=== PATIENT | female | born 2000 | race Caucasian/White ===

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

== ENCOUNTER 2019-04-23 17:52 | Emergency (ER) | payer OTHER ==
[~2019-04-23] VITALS: Ht 162.6 cm; Wt 93.1 kg
[~2019-04-23 17:52] MED LIST changes: +ADMELOG100 UNIT/1 SUB-Q; +CIPROFLOXACIN500 MG PO; +HYDROXYZINE HCL25 MG PO; +IMODIUM A-D2 M2 PO; -NOVOLOG100 UNIT/2 SUB-Q; +OMEPRAZOLE20 MG PO; +TOPAMAX50 MG PO; +ZANTAC150 MG PO
--- OUTSIDE RECORDS SUMMARY | 2019-04-23 17:56 | XMS ---
PreManage Notification: FAUSTINO JIMENEZ Security Meat Products Demonstrator Events No recent Security Events currently on file CRITERIA MET - [facility] CARE PROVIDERS Bayron Nurse Charge Rn/Cloth Opener Hand [facility] PHONE: [phone] FATOU [facility] 01/26/2019-[facility] PRIMARY CARE PHONE: [phone] NICKO YANCEY Nurse Practitioner: Women's Health 03/31/2018-Current PHONE: [phone] YAW SAMANIEGO Internal Medicine: Endocrinology, Diabetes 05/13/2018-Current \T\ Metabolism PHONE: [phone] [facility] Primary Care 01/26/2019-[facility] PRIMARY CARE FATOU PHONE: [phone] RIA NEFF Primary Care Current PHONE: Unknown NICKO YANCEY Primary Care Current PHONE: [phone] RIA NEFF Primary Care Current PHONE: Unknown [facility] Primary Care 09/26/2017-Current [facility] PHONE: [phone] [facility] Primary Care Current PHONE: Unknown RIA NEFF Primary Care Current PHONE: Unknown [address]UBNA [address] Primary Care Current PHONE: Unknown ELIZABETH DURAND Primary Care [facility] PHONE: Unknown Family Dental Care Case or Silk Spreader Current [facility] PHONE: [phone] SUE MARTINEZ Primary Care 11/20/2016-Current PHONE: [phone] Guidelines Source: [facility] Guidelines Date: 05/13/2018 Care Coordination: PATIENT LIVES AT [place] [employer] [facility].\T\nbsp; THEY HAVE STANDING ORDERS FOR TREATMENT OF HER DIABETES THROUGH HER SENIOR UI SOFTWARE ENGINEER DR YAW SAMANIEGO MD, [facility] [phone] .\T\nbsp; SEE ATTACHED COPY OF STANDING ORDERS. Additional care guidelines exist for the following facilities: [place] [address] ( 03/02/2019 ) Care History Social 11/29/2016 [place] [address] Client has Family Care Cloth Opener Hand Elisha Ward [phone]. Behavioral 11/29/2016 [place] [address] Client attends [phone] [employer] therapist Prisca Paris [phone] [email or web address] Medical/Surgical 07/29/2018 [facility] PATIENT HAS STANDING ORDERS AT [employer] [facility] FROM SENIOR UI SOFTWARE ENGINEER (SEE ATTACHMENTS) YAW SAMANIEGO (PHONE/[phone])(FAX/) .\T\nbsp; STANDING ORDERS FOR BLOOD SUGAR CHECKS, TREATMENT OF HYPGLYCEMIA AND HYPERGLYCEMIA INCLUDING URINE DIP FOR KETONES. TREATMENT FOR BLOOD SUGARS LESS THAN 80MG/DL AND FOR BLOOD SUGARS OVER 500MG/DL INCLUDED IN TREATMENT. 04/22/2018 [facility] - PATIENT RESCHEDULED APT FOR ED FOLLOW UP WITH PCP NICKO YANCEY ON 04/18/18 NEXT PCP APT IS ON 04/29/18 FOR ED FOLLOW UP. - PLEASE REFER PATIENT TO PCP FOR FOLLOW UP CARE FOR ANY NON EMERGENT MEDICAL NEEDS. 03/03/2018 [facility] - CHW contacted patient discussed ED utilization and the amount of ED visits that will start case management more involvement. - Patient stated she understood and will be utilizing her PCP going forward. - Patient stated she will make an apt with her PCP on 03/04/18. E.D. VISIT COUNT (12 MO.) 7 [facility]. TOTAL 7 NOTE: Visits indicate total known visits. ED/UCC VISIT TRACKING (12 MO.) 04/23/2019 17:53 [facility] [place] TYPE: Emergency COMPLAINT: - ABDOMINAL PAIN/VOMITING 03/23/2019 17:20 [facility] [place] TYPE: Emergency COMPLAINT: - DIABETIC ISSUE, BLOOD SUGAR PROBLEM 03/22/2019 15:15 [facility] GormanAlexys Amaro [place] TYPE: Emergency COMPLAINT: - POSS BLOOD SUGAR ISSUES DIAGNOSES: - Anxiety disorder, unspecified - Upper abdominal pain, unspecified - Type 1 diabetes mellitus with ketoacidosis without coma - Other jail (current) drug therapy 11/06/2018 18:58 [facility] [place] TYPE: Emergency COMPLAINT: - R ABD PAIN/CONSTIPATION DIAGNOSES: - Anxiety disorder, unspecified - Epigastric pain - Other jail (current) drug therapy - Peptic ulcer, site unspecified, unspecified as acute or chronic, without hemorrhage or perforation - lobsterman (current) use of oral hypoglycemic drugs - Type 1 diabetes mellitus without complications 10/21/2018 14:14 [facility] [place] TYPE: Emergency COMPLAINT: - R FLANK PAIN,NON INJURY DIAGNOSES: - Anxiety disorder, unspecified - Gastritis, unspecified, without bleeding - Type 1 diabetes mellitus without complications - [facility] (current) use of insulin - Unspecified abdominal pain - Other jail (current) drug therapy 07/03/2018 21:35 [facility] [place] TYPE: Emergency COMPLAINT: - DIABETIC, LOW BLOOD SUGAR DIAGNOSES: - Type 1 diabetes mellitus with hypoglycemia without coma - Anxiety disorder, unspecified - Urinary tract infection, site not specified - Other terminal press operator (current) drug therapy - lobsterman (current) use of insulin 05/13/2018 22:36 [facility] [place] TYPE: Emergency COMPLAINT: - BLOOD SUGAR PROBLEM DIAGNOSES: - Other terminal press operator (current) drug therapy - Other specified postprocedural states - Type 1 diabetes mellitus with hyperglycemia INPATIENT VISIT TRACKING (12 MO.) 03/23/2019 21:[address] [facility] [place] TYPE: Critical Care COMPLAINT: - DIABETIC ISSUE, BLOOD SUGAR PROBLEM DIAGNOSES: - Sepsis, unspecified organism - Radiographic dye allergy status - Other terminal press operator (current) drug therapy - Type 1 diabetes mellitus with ketoacidosis without coma - Acute pyelonephritis - Unspecified mood [affective] disorder - Acute respiratory failure with hypoxia - Sepsis due to Escherichia coli [E. coli] - Resistance to multiple antimicrobial drugs - lobsterman (current) use of insulin - Gastro-esophageal reflux disease without esophagitis [email or web address]
[2019-04-23] MEDS ORDERED: ZOFRAN4 MG PO (22:28)
== END 2019-04-23 22:48 | disposition home or self-care (01) ==
LOC: ED 17:52
DX: K52.9 Noninfective gastroenteritis and colitis, unspecified (principal); E10.9 Type 1 diabetes mellitus without complications; F41.9 Anxiety disorder, unspecified; Z91.041 Radiographic dye allergy status; Z79.899 Other long term (current) drug therapy
CPT/HCPCS: 74176; 80053; 81001; 82010; 82803; 84703; 85025; 96361; 96374; 96375; 99284-25; J1170; J2405; J7030

== ENCOUNTER 2019-06-01 14:56 | Observation (INO) | payer OTHER ==
[~2019-06-01] VITALS: Ht 162.6 cm; Wt 92.1 kg
--- OUTSIDE RECORDS SUMMARY | ~2019-06-01 | XMS | Clinical Summary ---
Demographics + + + | Address | [address] | | | [place] [address] | + + + | Home Phone | | + + + | Preferred Language | Unknown | + + + | Marital Status | Single | + + + | Tenriism Affiliation | Unknown | + + + | Race | Unknown | + + + | Ethnic Group | Unknown | + + + Author + + + | Author | [facility] | | | and Paulana | + + + | Organization | [facility] | | | and Paulana [...] Team Providers + +------+ + | Care Check Totaler Name | Role | Phone | + +------+ + | Lyudmila Child SPOT WELDER BODY ASSEMBLY | PCP | | + +------+ + [...] 02/23 | | Activ | | (HUMALOG KWJOHNPEN) | under the skin 3 | | [...] + + + | Overview: Problem List Planetarium Technician | + + + + + | Major depressive disorder | 08/20/2018 | + + + | Hyperglycemia | 08/12/2018 | + + + | MDD (major depressive disorder), recurrent severe, 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 | | + + + | Hyponatremia | 03/08/2014 | + + + | Sinusitis | 03/08/2014 | + + + Encounters +--------+---------+ + + + | Date | Type | Specialty | Care Team | Description | +--------+---------+ + + + | 04/28/ | Office | Gastroenterology | Jalil Jane | Diarrhea, | | 2019 | Visit | | MD Cosmo | unspecified type | | | | | | (Primary Dx); | | | | | | Gastroesophageal | | | | | | reflux disease, | | | | | | esophagitis presence | | | | | | not specified | +--------+---------+ + + + from Last 3 Months Family History + + +------+ + | [...] + +---------+ + | Alcohol Use | Drinks/We | oz/Week | Comments | | | ek | | | + + +---------+ + | Never [...] Filed Vital Signs + + + + | Vital Sign | Reading | Time Taken | + + + + | Blood Pressure | 104/76 | 04/28/20191445 PDT | + + + + | Pulse | 98 | 04/28/20191445 PDT | + + + + | Temperature | 36.8 C (98.3 F) | 04/28/20191445 PDT | + + + + | Respiratory Rate | 12 | 04/28/20191445 PDT | + + + + | Oxygen Saturation | 98% | 04/28/20191445 PDT | + + + + | Inhaled Oxygen | - | - | | Concentration | | | + + + + | Weight | 87.7 kg (193 lb 5.5 | 04/28/20191445 PDT | | | oz) | | + + + + | Height | 167.6 cm (5' 6") | 04/28/20191445 PDT | + + + + | Body Mass Index | 31.21 | 04/28/20191445 PDT | + + + + Plan of Treatment + + + + + | Health Maintenance | Due Date | Last Done | Comments | + + + + + | Well Child Check | | | | | | 3 | | | + + + + + | Vaccine: HPV (1 - | | | | | Female 3-dose | 5 | | | | series) | | [...] | | | | Pneumococcal 19-64 | 9 | | | | (PPSV23 only) Medium | | | | | Risk (1 of - | | | | | PPSV23) | | | | + + + + + | Microalbumin | | | | | Screening | 9 | | | + + + + + | Vaccine: Influenza | | 06/23/2018, 06/23/2018, | | | (#1) | 9 | 07/09/2017, Additional history | | | [...] | [employer] | MODA | [id number] | 04/28/20 | [phone] | | Medica | | MEDICAID HMO [...] Self | [birth year] | [address] | [address] | marcelo/Doc | | 2001 | [phone] | [place] [address] | | | leilani | | | 8 (Home) | | + +--------+ +--------+ + + Advance Directives Patient has advance care planning documents on file. For more information, please contact:Allyssa [facility] [place] [address]
--- OUTSIDE RECORDS SUMMARY | ~2019-06-01 | XMS | Encounter Summary ---
Demographics + + + | Address | [address] | | | [place] [address] | + + + | Home Phone | | + + + | Preferred Language | Unknown | + + + | Marital Status | Single | + + + | Judaism Affiliation | Unknown | + + + | Race | Unknown | + + + | Ethnic Group | Unknown | + + + Author + + + | Author | [facility] | | | and Paulana | + + + | Organization | [facility] | | | and Paulana [...] Providers + +------+ + | Care Supervisor [place] Name | Role | Phone | + [...] | | Gastro-esoph | [address] | MASH TUB COOKER OPERATOR [address] | | | | | ageal reflux | [address] | [place], [place] | | | | | disease | [place], | [address] [place] | | | | | without | [place] [address] | FLORENTIN ROMAN | | | | | esophagitis | Phone: | [phone] Phone: | | | | | Diarrhea, | [phone] | [phone] | | | | | unspecified | Fax: | Fax: | | | | | Nausea | [phone] | [phone] | | | | | Right upper | | | | | | | quadrant | | | | | | | pain | | | | | | | Procedures | | | | | | | REFRACTORY WORKER OFFICE | | | | | | | VISIT | | | +--------+--------+ + + + + Encounter Details +--------+---------+ + + + | Date | Type | Department | Care Team | Description | +--------+---------+ + + + | 04/28/ | Office | [facility] | Jalil Jane | Diarrhea, | | 2019 | Visit | GASTROENTEROLOGY | MD Cosmo [address] | unspecified type | | | | [address] [place] | [address] [place] | (Primary Dx); | | | | [address] [place], [place] | [place] [address] | Gastroesophageal | | | | [address] | [phone] | reflux disease, | | | | [phone] | | esophagitis presence | | | [...] history: She is no longer in the [facility], and is living with her boyfriend. Diarrhea [...] fail to improve. CC: Lyudmila Child, RENA[place] [address] [place] [address] Portions of this chart may have been created with [employer] voice recognition software. Occasi onal wrong-word or [...]
--- OUTSIDE RECORDS SUMMARY | ~2019-06-01 | XMS | Clinical Summary ---
Demographics + + + | Address | [address] | | | [place] [address] | + + + | Home Phone | | + + + | Preferred Language | Unknown | + + + | Marital Status | Single | + + + | Protestant Affiliation | Unknown | + + + | Race | Unknown | + + + | Ethnic Group | Unknown | + + + Author + + + | Author | [facility] | | | and Paulana | + + + | Organization | [facility] | [...] Team Providers + +------+ + | Care Assembler Aircraft Power Plant Name | Role | Phone | + +------+ + | Lyudmila Child MICROPHONE OPERATOR | PCP | | + +------+ [...] + + + | Overview: Problem List Washing Machine Loader | + + + + + | [...] | [employer]AN | MODA | [id number] | 04/28/20 | [phone] | | Medica | | MEDICAID HMO [...] Flor | marcelo/Doc | | 2001 | [phone] | [place] [address] | | | leilani | | | 8 (Home) | | + +--------+ +--------+ + + Advance Directives Patient has advance care planning documents on file. For more information, please contact:Allyssa [facility] and [facility] [place] [address]
--- OUTSIDE RECORDS SUMMARY | ~2019-06-01 | XMS | Encounter Summary ---
Demographics + + + | Address | [address] | | | [place] [address] | + + + | Home Phone [...] | Author | [facility] | | | and Paulana | + + + | Organization | [facility] | | | and Paulana [...] Team Providers + +------+ + | Care Fiber Optic Splicer Name | Role | Phone | + [...] | | Gastro-esoph | [address] | MAIL INSERTER [address] | | | | | ageal reflux | [address] | [place], [place] | | | | | disease | [place], | [address] [place] | | | | | without | [place] [address] | FLORENTIN ROMAN | | | | | esophagitis | Phone: | [phone] Phone: | | | | | Diarrhea, | [phone] | [phone] | | | | | unspecified | Fax: | Fax: | | | | | Nausea | [phone] | [phone] | | | | | Right upper | | | | | | | quadrant | | | | | | | pain | | | | | | | Procedures | | | | | | | MARKET RESEARCH ANALYST OFFICE | | | | | | | VISIT | | | +--------+--------+ + + + + Encounter Details +--------+---------+ + + + | Date | Type | Department | Care Team | Description | +--------+---------+ + + + | 04/28/ | Office | [facility] | Jalil Jane | Diarrhea, | | 2019 | Visit | GASTROENTEROLOGY | MD Cosmo [address] | unspecified type | | | | [address] [place] | [address] [place] | (Primary Dx); | | | | [address] [place], [place] | [place] [address] | Gastroesophageal | | | | [address] | [phone] | reflux disease, | | | | [phone] | | esophagitis presence | | | [...] fail to improve. CC: Lyudmila Child, RENAN [address] [place] [address] Portions of this chart may have been created with [employer] voice recognition software. Occasi onal wrong-word or [...]
--- OUTSIDE RECORDS SUMMARY | ~2019-06-01 | XMS | Clinical Summary ---
Demographics + + + | Address | [address] | | | [place] [address] | + + + | Home Phone | | + + + | Preferred Language | Unknown | + + + | Marital Status | Single | + + + | Islam Affiliation | Unknown | + + + | Race | Unknown | + + + | Ethnic Group | Unknown | + + + Author + + + | Author | [facility] | | | and Paulana | + + + | Organization | [facility] | | | and [...] Team Providers + +------+ + | Care Electric Power Line Examiner Name | Role | Phone | + +------+ + | Lyudmila Child STREETCAR DISPATCHER | PCP | | + +------+ [...] + + + | Overview: Problem List Mold Preparer | + + + + + | [...] | [employer]AN | MODA | [id number] | 04/28/20 | [phone] | | Medica | | MEDICAID HMO [...] Flor | marcelo/Doc | | 2001 | [phone] | [place] [address] | | | leilani | | | 8 (Home) | | + +--------+ +--------+ + + Advance Directives Patient has advance care planning documents on file. For more information, please contact:[facility] and [facility] [place] [address]
--- OUTSIDE RECORDS SUMMARY | ~2019-06-01 | XMS | Encounter Summary ---
Demographics + + + | Address | [address] | | | [place] [address] | + + + | Home Phone | | + + + | Preferred Language | Unknown | + + + | Marital Status | Single | + + + | Faith Affiliation | Unknown | + + + | Race | Unknown | + + + | Ethnic Group | Unknown | + + + Author + + + | Author | [facility] | | | and Paulana | + + + | Organization | [facility] | | | and Paulana | [...] Team Providers + +------+ + | Care Bear Keeper Name | Role | Phone | + [...] | | Gastro-esoph | [address] | DICE TABLE PERSON [address] | | | | | ageal reflux | [address] | [place], [place] | | | | | disease | [place], | [address] [place] | | | | | without | [place] [address] | FLORENTIN ROMAN | | | | | esophagitis | Phone: | [phone] Phone: | | | | | Diarrhea, | [phone] | [phone] | | | | | unspecified | Fax: | Fax: | | | | | Nausea | [phone] | [phone] | | | | | Right upper | | | | | | | quadrant | | | | | | | pain | | | | | | | Procedures | | | | | | | PACKAGE DELIVERY DRIVER OFFICE | | | | | | | VISIT | | | +--------+--------+ + + + + Encounter Details +--------+---------+ + + + | Date | Type | Department | Care Team | Description | +--------+---------+ + + + | 04/28/ | Office | [facility] | Jalil Jane | Diarrhea, | | 2019 | Visit | GASTROENTEROLOGY | MD Cosmo [address] | unspecified type | | | | [address] [place] | [address] [place] | (Primary Dx); | | | | [address] [place], [place] | [place] [address] | Gastroesophageal | | | | [address] | [phone] | reflux disease, | | | | [phone] | | esophagitis presence | | | [...] to improve. CC: Lyudmila Child, RENAN [address] [place] [address] Portions of this chart may have been created with [employer] voice recognition software. Occasi onal wrong-word or [...]
[~2019-06-01 14:56] MED LIST changes: +ZOFRAN4 MG PO
--- OUTSIDE RECORDS SUMMARY | 2019-06-01 14:58 | XMS ---
PreManage Notification: FAUSTINO JIMENEZ Security Retail Loss Prevention Investigator Events No recent Security Events currently on file CRITERIA MET - [facility] CARE PROVIDERS Bayron Rn Urology/Film Process Operator [facility] PHONE: [phone] FATOU [facility] 01/26/2019-[facility] PRIMARY CARE PHONE: [phone] NICKO YANCEY Nurse Practitioner: Women's Health 03/31/2018-Current PHONE: [phone] YAW SAMANIEGO Internal Medicine: Endocrinology, Diabetes 05/13/2018-Current \T\ Metabolism PHONE: [phone] NICKO YANCEY Primary Care Current PHONE: Unknown [facility] Primary Care 01/26/2019-Current PRIMARY CARE YONIADALIDSteve PHONE: [phone] RIA NEFF Primary Care Current PHONE: Unknown [facility] Primary Care 09/26/2017-Current MALINA PHONE: [phone] [facility] Primary Care Current PHONE: Unknown RIA NEFF Primary Care Current PHONE: Unknown ELIZABETH RENNER Primary Care [facility] PHONE: Unknown ELIZABETH MINANY Primary Care [facility] PHONE: Unknown Family Dental Care Case or Facility Maintenance Mechanic Current [facility] PHONE: [phone] [facility] [place] Unknown Current PHONE: [phone] SUE MARTINEZ Primary Care 11/20/2016-Current PHONE: [phone] Guidelines Source: [facility] Guidelines Date: 05/13/2018 Care Coordination: PATIENT LIVES AT [place] [employer].\T\nbsp; THEY HAVE STANDING ORDERS FOR TREATMENT OF HER DIABETES THROUGH HER WAITSTAFF CAPTAIN DR YAW SAMANIEGO MD, [facility] [phone] .\T\nbsp; SEE ATTACHED COPY OF STANDING ORDERS. Additional care guidelines exist for the following facilities: [place] [address] ( 03/02/2019 ) Care History Medical/Surgical 07/29/2018 [facility] PATIENT HAS STANDING ORDERS AT [employer]. FROM WAITSTAFF CAPTAIN (SEE ATTACHMENTS) YAW SAMANIEGO (PHONE/[phone])(FAX/[phone]) .\T\nbsp; STANDING ORDERS FOR BLOOD SUGAR CHECKS, TREATMENT OF HYPGLYCEMIA AND HYPERGLYCEMIA INCLUDING URINE DIP FOR KETONES. TREATMENT FOR BLOOD SUGARS LESS THAN 80MG/DL AND FOR BLOOD SUGARS OVER 500MG/DL INCLUDED IN TREATMENT. 04/22/2018 [facility] - PATIENT [...] with her PCP on 03/04/18. Behavioral 11/29/2016 [place] [address] Client attends [phone] [employer] therapist Prisca Paris [phone] [email or web address] Social 11/29/2016 [place] [address] Client has Family Care Film Process Operator Elisha Ward [phone]. E.D. VISIT COUNT (12 MO.) 7 [facility]. TOTAL 7 NOTE: Visits indicate total known visits. ED/UCC VISIT TRACKING (12 MO.) 06/01/2019 14:56 [facility] [place] TYPE: Emergency COMPLAINT: - BLOOD SUGAR PROBLEM 04/23/2019 17:53 [facility] [place] TYPE: Emergency COMPLAINT: - ABDOMINAL PAIN/VOMITING DIAGNOSES: - Type 1 diabetes mellitus without complications - Anxiety disorder, unspecified - Nausea with vomiting, unspecified - Radiographic dye allergy status - Other vermin exterminator (current) drug therapy - Noninfective gastroenteritis and colitis, unspecified 03/23/2019 17:20 [facility] [place] TYPE: Emergency COMPLAINT: - DIABETIC ISSUE, BLOOD SUGAR PROBLEM 03/22/2019 15:15 [facility] [place] TYPE: Emergency COMPLAINT: - POSS BLOOD SUGAR ISSUES DIAGNOSES: - Anxiety disorder, unspecified - Upper abdominal pain, unspecified - Type 1 diabetes mellitus with ketoacidosis without coma - [place] [facility] (current) drug therapy 11/06/2018 18:58 [facility] [place] TYPE: Emergency COMPLAINT: - R ABD PAIN/CONSTIPATION DIAGNOSES: - Anxiety disorder, unspecified - Epigastric pain - Other vermin exterminator (current) drug therapy - Peptic ulcer, site unspecified, unspecified as acute or chronic, without hemorrhage or perforation - halfway (current) use of oral hypoglycemic drugs - Type 1 diabetes mellitus without complications 10/21/2018 14:14 [facility] [place] TYPE: Emergency COMPLAINT: - R FLANK PAIN,NON INJURY DIAGNOSES: - Anxiety disorder, unspecified - Gastritis, unspecified, without bleeding - Type 1 diabetes mellitus without complications - halfway (current) use of insulin - Unspecified abdominal pain - Other [place] [facility] (current) drug therapy 07/03/2018 21:35 [facility] [place] TYPE: Emergency COMPLAINT: - DIABETIC, LOW BLOOD SUGAR DIAGNOSES: - Type 1 diabetes mellitus with hypoglycemia without coma - Anxiety disorder, unspecified - Urinary tract infection, site not specified - Other vermin exterminator (current) drug therapy - halfway (current) use of insulin INPATIENT VISIT TRACKING (12 MO.) 03/23/2019 21:[address] [facility] [place] TYPE: Critical Care COMPLAINT: - DIABETIC ISSUE, BLOOD SUGAR PROBLEM DIAGNOSES: - Sepsis, unspecified organism - Radiographic dye allergy status - Other [place] [facility] (current) drug therapy - Type 1 diabetes mellitus with ketoacidosis without coma - Acute pyelonephritis - Unspecified mood [affective] disorder - Acute respiratory failure with hypoxia - Sepsis due to Escherichia coli [E. coli] - Resistance to multiple antimicrobial drugs - intermission coordinator (current) use of insulin - Gastro-esophageal reflux disease without esophagitis [email or web address]
[2019-06-01] MEDS ORDERED: NOVOLOG100 UNIT/2 SUB-Q (18:55)
[2019-06-02] MEDS ORDERED: BASAGLAR K100 UNIT/1 SUB-Q (14:56)
== END 2019-06-02 17:50 | disposition home or self-care (01) ==
LOC: ED 14:56 → CCU 14:57
PROVIDERS: ADMIT Student in an Organized Health Care Education/Training Program
DX: E10.10 Type 1 diabetes mellitus with ketoacidosis without coma (principal); F39 Unspecified mood [affective] disorder; K21.9 Gastro-esophageal reflux disease without esophagitis; S80.862A Insect bite (nonvenomous), left lower leg, initial encounter; S80.861A Insect bite (nonvenomous), right lower leg, initial encounter; S30.861A Insect bite (nonvenomous) of abdominal wall, initial encounter; Z91.14 Patient's other noncompliance with medication regimen; Z79.899 Other long term (current) drug therapy; Z96.41 Presence of insulin pump (external) (internal); Z88.8 Allergy status to other drugs, medicaments and biological substances; Z91.041 Radiographic dye allergy status; Z23 Encounter for immunization
CPT/HCPCS: 36415; 80048; 80053; 81001; 82010; 82803; 83735; 84100; 84703; 85025; 90688; 96361; 96365; 96366; 99285-25; G0008; G0378; J1815; J3475; J7030; J7042; J7120; Q0177

== ENCOUNTER 2019-06-19 15:13 | Emergency (ER) | payer OTHER ==
[~2019-06-19] VITALS: Ht 162.6 cm; Wt 92.1 kg
--- OUTSIDE RECORDS SUMMARY | ~2019-06-19 | XMS | Encounter Summary ---
Demographics + + + | Address | [address] | | | [place] [address] | + + + | Home Phone | | + + + | Preferred Language | Unknown | + + + | Marital Status | Single | + + + | Hinduism Affiliation | Unknown | + + + | Race | Unknown | + + + | Ethnic Group | Unknown | + + + Author + + + | Author | [facility] | | | and Paulana | + + + | Organization | [facility] | | | and Paulana | [...] Team Providers + +------+ + | Care Supervisor Feed House Name | Role | Phone | + [...] Closed | | Gastroenterol | Diagnoses | [place], | [place], | | | | ogy | | Lyudmila Osman NP | [place], | | | | | Gastro-esoph | [address] | ROCKET SCIENTIST [address] | | | | | ageal reflux | [address] | [place], [place] | | | | | disease | [place], | [address] [place] | | | | | without | [place] [address] | [place]ENT[place] ROMAN | | | | | esophagitis | Phone: | [phone] Phone: | | | | | Diarrhea, | [phone] | [phone] | | | | | unspecified | Fax: | Fax: | | | | | Nausea | [phone] | [phone] | | | | | Right upper | | | | | | | quadrant | | | | | | | pain | | | | | | | Procedures | | | | | | | SUPERINTENDENT TRANSPORTATION OFFICE | | | | | | | VISIT | | | +--------+--------+ + + + + Encounter Details +--------+---------+ + + + | Date | Type | Department | Care Team | Description | +--------+---------+ + + + | 04/28/ | Office | [facility] | Jalil Jane | Diarrhea, | | 2019 | Visit | GASTROENTEROLOGY | MD Cosmo [address] | unspecified type | | | | [address] [place] | [address] [place] | (Primary Dx); | | | | [address] [place], [place] | [place] [address] | Gastroesophageal | | | | [address] | [phone] | reflux disease, | | | | [phone] | | esophagitis presence | | | [...] Body Mass Index | 31.21 | 04/28/2019 1446 PDT | + + + + documented in this encounter Progress Notes Jalil Jane MD - 04/28/2019 1500 PDTFormatting of this note might be different fro m the original. Gastroenterology Clinic Progress Note Date of Office [...] history: She is no longer in the long term, and is living with her boyfriend. Diarrhea [...] fail to improve. CC: Lyudmila Child, RENAN [address] [place] [address] Portions of this chart may have been created with [employer] voice recognition software. Occasi onal wrong-word or [...]
--- OUTSIDE RECORDS SUMMARY | ~2019-06-19 | XMS | Clinical Summary ---
Demographics + + + | Address | [address] | | | [place] [address] | + + + | Home Phone | | + + + | Preferred Language | Unknown | + + + | Marital Status | Single | + + + | Yarsanism Affiliation | Unknown | + + + | Race | Unknown | + + + | Ethnic Group | Unknown | + + + Author + + + | Author | [facility] | | | and Paulana | + + + | Organization | [facility] | | | and Paulana [...] Team Providers + +------+ + | Care Wire Rope Sling Maker Name | Role | Phone | + +------+ + | Lyudmila Child BOAT RIGGER | PCP | | + +------+ + [...] + + + | Overview: Problem List Barrel Rifler | + + + + + | [...] | [employer]AN | MODA | [id number] | 04/28/20 | [phone] | | Medica | | MEDICAID HMO [...] Flor | marcelo/Doc | | 2001 | [phone] | [place] [address] | | | leilani | | | 8 (Home) | | + +--------+ +--------+ + + Advance Directives Patient has advance care planning documents on file. For more information, please contact:[facility] and [facility] [place] [address]
--- OUTSIDE RECORDS SUMMARY | ~2019-06-19 | XMS | Encounter Summary ---
Demographics + + + | Address | [address] | | | [place] [address] | + + + | Home Phone | | + + + | Preferred Language | Unknown | + + + | Marital Status | Single | + + + | Mormon Affiliation | Unknown | + + + | Race | Unknown | + + + | Ethnic Group | Unknown | + + + Author + + + | Author | [facility] | | | and Paulana | + + + | Organization | [facility] | | | and [...] Team Providers + +------+ + | Care Political Geographer Name | Role | Phone | + [...] | | Gastro-esoph | [address] | SUBSTATION OPERATOR CHIEF [address] | | | | | ageal reflux | [address] | [place], [place] | | | | | disease | [place], | [address] [place] | | | | | without | [place] [address] | [place] | | | | | esophagitis | Phone: | [phone] Phone: | | | | | Diarrhea, | [phone] | [phone] | | | | | unspecified | Fax: | Fax: | | | | | Nausea | [phone] | [phone] | | | | | Right upper | | | | | | | quadrant | | | | | | | pain | | | | | | | Procedures | | | | | | | DIRECTOR OF CASEWORK OFFICE | | | | | | | VISIT | | | +--------+--------+ + + + + Encounter Details +--------+---------+ + + + | Date | Type | Department | Care Team | Description | +--------+---------+ + + + | 04/28/ | Office | [facility] | Jalil Jane | Diarrhea, | | 2019 | Visit | GASTROENTEROLOGY | MD Cosmo [address] | unspecified type | | | | [address] [place] | [address] [place] | (Primary Dx); | | | | [address] [place], [place] | [place] [address] | Gastroesophageal | | | | [address] | [phone] | reflux disease, | | | | [phone] | | esophagitis presence | | | [...] history: She is no longer in the residential, and is living with her boyfriend. Diarrhea [...] to improve. CC: Lyudmila Child, RENAN [address] [place] [address] Portions of this chart may have been created with tinyclues voice recognition software. Occasi onal wrong-word or [...]
--- OUTSIDE RECORDS SUMMARY | ~2019-06-19 | XMS | Clinical Summary ---
Demographics + + + | Address | [address] | | | [place] [address] | + + + | Home Phone | | + + + | Preferred Language | Unknown | + + + | Marital Status | Single | + + + | Mormonism Affiliation | Unknown | + + + | Race | Unknown | + + + | Ethnic Group | Unknown | + + + Author + + + | Author | [facility] | | | and Paulana | + + + | Organization | [facility] | | | and [...] Team Providers + +------+ + | Care Land Department Head Name | Role | Phone | + +------+ + | Lyudmila Child LOFT WORKER HEAD | PCP | | + +------+ + [...] + + + | Overview: Problem List Ordained Minister | + + + + + | [...] | [employer]AN | MODA | [id number] | 04/28/20 | [phone] | | Medica | | MEDICAID HMO [...] Flor | marcelo/Doc | | 2001 | [phone] | [place] [address] | | | leilani | | | 8 (Home) | | + +--------+ +--------+ + + Advance Directives Patient has advance care planning documents on file. For more information, please contact:Allyssa [facility] and [facility] [place] [address]
[~2019-06-19 15:13] MED LIST changes: +NOVOLOG100 UNIT/2 SUB-Q
--- OUTSIDE RECORDS SUMMARY | 2019-06-19 15:16 | XMS ---
PreManage Notification: FAUSTINO JIMENEZ Security Website Admin Events No recent Security Events currently on file CRITERIA MET - [facility] - Has Care Guidelines - [facility] - 2 Visits in 30 Days CARE PROVIDERS Bayron Hosiery Pairer/Pc Support Specialist [facility] PHONE: [phone] FATOU [facility] 01/26/2019-[facility] PRIMARY CARE PHONE: [phone] NICKO YANCEY Nurse Practitioner: Women's Health 03/31/2018-Current PHONE: [phone] YAW SAMANIEGO Internal Medicine: Endocrinology, Diabetes 05/13/2018-Current \T\ Metabolism PHONE: [phone] NICKO YANCEY Primary Care Current PHONE: Unknown [facility] Primary Care 01/26/2019-Current PRIMARY CARE YONISHERITA PHONE: [phone] RIA NEFF Primary Care Current PHONE: Unknown RIA NEFF Primary Care Current PHONE: Unknown [facility] Primary Care 09/26/2017-Current [facility] PHONE: [phone] [facility] Primary Care Current PHONE: Unknown RIA NEFF Primary Care Current PHONE: Unknown THANG Reagan TAM CAMBRIA Primary [facility] PHONE: Unknown ELIZABETH DURAND Primary Care [facility] PHONE: Unknown [facility] Case or Asphalt Raker Current [facility] PHONE: [phone] SUE MARTINEZ Primary Care 11/20/2016-Current PHONE: [phone] Guidelines Source: [facility] Guidelines Date: 05/13/2018 Care Coordination: PATIENT L[facility] [place] [facility] Recorrido.\T\nbsp; THEY HAVE STANDING ORDERS FOR TREATMENT OF HER DIABETES THROUGH HER MORPHOLOGY TEACHER DR YAW SAMANIEGO MD, [facility] [phone] .\T\nbsp; SEE ATTACHED COPY OF STANDING ORDERS. Additional care guidelines exist for the following facilities: [facility] ( 06/05/2019 ) [place] [address] ( 03/02/2019 ) Care History Behavioral 11/29/2016 [place] [address] Client attends [phone] [employer] therapist Prisca Paris [phone] [email or web address] Social 11/29/2016 [place] [address] Client has [facility] Support Specialist Elisha Ward [phone]. Medical/Surgical 07/29/2018 [facility] PATIENT HAS STANDING ORDERS AT [facility] Recorrido. FROM MORPHOLOGY TEACHER (SEE ATTACHMENTS) YAW SAMAINEGO (PHONE/[phone])(FAX/[phone]) .\T\nbsp; STANDING ORDERS FOR BLOOD SUGAR CHECKS, TREATMENT OF HYPGLYCEMIA AND HYPERGLYCEMIA INCLUDING URINE DIP FOR KETONES. TREATMENT FOR BLOOD SUGARS LESS THAN 80MG/DL AND FOR BLOOD SUGARS OVER 500MG/DL INCLUDED IN TREATMENT. 04/22/2018 [facility] - PATIENT RESCHEDULED APT FOR ED FOLLOW UP WITH PCP NICKO YANCEY ON 04/18/18 NEXT PCP APT IS ON 04/29/18 FOR ED FOLLOW UP. - PLEASE REFER PATIENT TO PCP FOR FOLLOW UP CARE FOR ANY NON EMERGENT MEDICAL NEEDS. 03/03/2018 [facility] - [facility] contacted patient discussed ED utilization and the amount of ED visits that will start case management more involvement. - Patient stated she understood and will be utilizing her PCP going forward. - Patient stated she will make an apt with her PCP on 03/04/18. E.D. VISIT COUNT (12 MO.) 8 [facility]. TOTAL 8 NOTE: Visits indicate total known visits. ED/UCC VISIT TRACKING (12 MO.) 06/19/2019 15:13 [facility] [place] TYPE: Emergency COMPLAINT: - DIABETIC PROBLEM 06/01/2019 14:56 [facility] [place] TYPE: Emergency COMPLAINT: - BLOOD SUGAR PROBLEM 04/23/2019 17:53 [facility] [place] TYPE: Emergency COMPLAINT: - ABDOMINAL PAIN/VOMITING DIAGNOSES: - 1 Type 1 diabetes mellitus without complications - Anxiety disorder, unspecified - Nausea with vomiting, unspecified - Radiographic dye allergy status - Other rn long term care (current) drug therapy - Noninfective gastroenteritis and colitis, unspecified 03/23/2019 17:20 [facility] [place] TYPE: Emergency COMPLAINT: - DIABETIC ISSUE, BLOOD SUGAR PROBLEM 03/22/2019 15:15 [facility] [place] TYPE: Emergency COMPLAINT: - POSS BLOOD SUGAR ISSUES DIAGNOSES: - Anxiety disorder, unspecified - Upper abdominal pain, unspecified - 1 Type 1 diabetes mellitus with ketoacidosis without coma - Other rn long term care (current) drug therapy 11/06/2018 18:58 [facility] [place] TYPE: Emergency COMPLAINT: - R ABD PAIN/CONSTIPATION DIAGNOSES: - Anxiety disorder, unspecified - Epigastric pain - Other intermediate (current) drug therapy - Peptic ulc, site unsp, unsp as ac or chr, w/o hemor or perf - termite control technician (current) use of oral hypoglycemic drugs - 1 Type 1 diabetes mellitus without complications 10/21/2018 14:14 [facility] [place] TYPE: Emergency COMPLAINT: - R FLANK PAIN,NON INJURY DIAGNOSES: - Anxiety disorder, unspecified - Gastritis, unspecified, without bleeding - 1 Type 1 diabetes mellitus without complications - penitentiary (current) use of insulin - Unspecified abdominal pain - Other rn long term care (current) drug therapy 07/03/2018 21:35 [facility] [place] TYPE: Emergency COMPLAINT: - DIABETIC, LOW BLOOD SUGAR DIAGNOSES: - 1 Type 1 diabetes mellitus with hypoglycemia without coma - Anxiety disorder, unspecified - Urinary tract infection, site not specified - Other intermediate (current) drug therapy - termite control technician (current) use of insulin INPATIENT VISIT TRACKING (12 MO.) 06/01/2019 14:57 [facility] [place] TYPE: Observation COMPLAINT: - DKA DIAGNOSES: - Allergy status to oth drug/meds/biol subst status - Other intermediate (current) drug therapy - Insect bite (nonvenomous), right lower leg, init encntr - Unspecified mood [affective] disorder - Radiographic dye allergy status - Presence of insulin pump (external) (internal) - Encounter for immunization - Gastro-esophageal reflux disease without esophagitis - Insect bite (nonvenomous) of abdominal wall, init encntr - Patient's other noncompliance with medication regimen - 1 Type 1 diabetes mellitus with ketoacidosis without coma - Insect bite (nonvenomous), left lower leg, initial encounter 03/23/2019 21:[address] [facility] [place] TYPE: Critical Care COMPLAINT: - DIABETIC ISSUE, BLOOD SUGAR PROBLEM DIAGNOSES: - Sepsis, unspecified organism Sepsis, u - Radiographic dye allergy status - Other rn long term care (current) drug therapy - 1 Type 1 diabetes mellitus with ketoacidosis without coma - Acute pyelonephritis - Unspecified mood [affective] disorder - Acute respiratory failure with hypoxia - Sepsis due to Escherichia coli [E. coli] Sepsis du - Resistance to multiple antimicrobial drugs - termite control technician (current) use of insulin - Gastro-esophageal reflux disease without esophagitis [email or web address]
== END 2019-06-19 17:11 | disposition home or self-care (01) ==
LOC: ED 15:13
DX: E10.9 Type 1 diabetes mellitus without complications (principal); F41.9 Anxiety disorder, unspecified; Z91.041 Radiographic dye allergy status; Z88.8 Allergy status to other drugs, medicaments and biological substances; Z79.4 Long term (current) use of insulin; Z79.899 Other long term (current) drug therapy
CPT/HCPCS: 80053; 81001; 82803; 85025; 96361; 96374; 99284-25; J1815; J7030

== ENCOUNTER 2019-07-16 11:21 | Observation (INO) | payer OTHER ==
[~2019-07-16] VITALS: Ht 162.6 cm; Wt 93.0 kg
--- OUTSIDE RECORDS SUMMARY | ~2019-07-16 | XMS | Encounter Summary ---
Demographics + + + | Address | [address] | | | [place] [address] | + + + | Home Phone | | + + + | Preferred Language | Unknown | + + + | Marital Status | Single | + + + | Yarsani Affiliation | Unknown | + + + | Race | Unknown | + + + | Ethnic Group | Unknown | + + + Author + + + | Author | [facility] | | | and Paulana | + + + | Organization | [facility] | | | and Paulana | [...] Team Providers + +------+ + | Care Slipcover Cutter Name | Role | Phone | + [...] | | | [address] [facility] | [place]. | | | | | [address] | [place] [address] | | | | | [address] | | | | | | [phone] | | | +--------+ + + + [...]
--- OUTSIDE RECORDS SUMMARY | ~2019-07-16 | XMS | Encounter Summary ---
Demographics + + + | Address | [address] | | | [place] [address] | + + + | Home Phone | | + + + | Preferred Language | Unknown | + + + | Marital Status | Single | + + + | Protestant Affiliation | Unknown | + + + | Race | Unknown | + + + | Ethnic Group | Unknown | + + + Author + + + | Author | [facility] | | | and Paulana | + + + | Organization | [facility] | | | and [...] Team Providers + +------+ + | Care Stick Feeder Name | Role | Phone | + [...] [place] | | | | | [address] [place], [place] | [place] [address] | | | | | [address] | [phone] | | | | | [phone] | | | +--------+ + + + [...]
--- OUTSIDE RECORDS SUMMARY | ~2019-07-16 | XMS | Clinical Summary ---
Demographics + + + | Address | [address] | | | [place] [address] | + + + | Home Phone | | + + + | Preferred Language | Unknown | + + + | Marital Status | Single | + + + | Episcopal Affiliation | Unknown | + + + | Race | Unknown | + + + | Ethnic Group | Unknown | + + + Author + + + | Author | [facility] | | | and Paulana | + + + | Organization | [facility] | | | and Paulana [...] Team Providers + +------+ + | Care Analysis Director Name | Role | Phone | + +------+ + | Lydumila Child OYSTER HARVESTER | PCP | | + +------+ + [...] + + + | 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
--- OUTSIDE RECORDS SUMMARY | ~2019-07-16 | XMS | Encounter Summary ---
Demographics + + + | Address | [address] | | | [place] [address] | + + + | Home Phone | | + + + | Preferred Language | Unknown | + + + | Marital Status | Single | + + + | Orthodox Affiliation | Unknown | + + + | Race | Unknown | + + + | Ethnic Group | Unknown | + + + Author + + + | Author | [facility] | | | and Paulana | + + + | Organization | [facility] | | | and Paulana [...] Team Providers + +------+ + | Care Can Stacker Name | Role | Phone | + [...] | | | [address] [facility] | [place]. | | | | | [address] | [place] [address] | | | | | [address] | | | | | | [phone] | | | +--------+ + + + [...]
--- OUTSIDE RECORDS SUMMARY | ~2019-07-16 | XMS | Encounter Summary ---
Demographics + + + | Address | [address] | | | [place] [address] | + + + | Home Phone | | + + + | Preferred Language | Unknown | + + + | Marital Status | Single | + + + | Methodist Affiliation | Unknown | + + + | Race | Unknown | + + + | Ethnic Group | Unknown | + + + Author + + + | Author | [facility] | | | and Paulana | + + + | Organization | [facility] | | | and [...] Team Providers + +------+ + | Care Tree Expert Name | Role | Phone | + +------+ + | Lyudmila Child GENERAL ACCOUNTING CLERK | PCP | | + +------+ + [...] | | Gastro-esoph | [address] | SOFTWARE ENGINEERING PROJECT MANAGER [address] | | | | | ageal reflux | [address] | [place], [place] | | | | | disease | [place], | [address] [place] | | | | | without | [place] [address] | [place] | | | | | esophagitis | Phone: | [phone] Phone: | | | | | Diarrhea, | [phone] | [phone] | | | | | unspecified | Fax: | Fax: | | | | | Nausea | [phone] | [phone] | | | | | Right upper | | | | | | | quadrant | | | | | | | pain | | | | | | | Procedures | | | | | | | GENERAL ACCOUNTING CLERK OFFICE | | | | | | | VISIT | | | +--------+--------+ + + + + Encounter Details +--------+---------+ + + + | Date | Type | Department | Care Team | Description | +--------+---------+ + + + | 04/28/ | Office | [facility] | Jalil Jane | Diarrhea, | | 2019 | Visit | GASTROENTEROLOGY | MD Cosmo [address] | unspecified type | | | | [address] | [address] [place] | (Primary Dx); | | | | [address] [place], [place] | [place] [address] | Gastroesophageal | | | | [address] | [phone] | reflux disease, | | | | [phone] | | esophagitis presence | | | [...] history: She is no longer in the prison, and is living with her boyfriend. Diarrhea [...] to improve. CC: Lyudmila Child, RENA[address] [place] [address] Portions of this chart may have been created with [employer] voice recognition software. Occasi onal wrong-word or [...]
--- OUTSIDE RECORDS SUMMARY | ~2019-07-16 | XMS | Encounter Summary ---
Demographics + + + | Address | [address] | | | [place] [address] | + + + | Home Phone [...] Author | [facility] | | | and Paulana | + + + | Organization | [facility] | | | and [...] Team Providers + +------+ + | Care Refining Engineer Name | Role | Phone | + +------+ + | Lyudmila Child RESORT HOST | PCP | | + +------+ + [...] | | Gastro-esoph | [address] | HELPER METAL HANGING [address] | | | | | ageal reflux | [address] | [place], [place] | | | | | disease | [place], | [address] [place] | | | | | without | [place] [address] | [place] | | | | | esophagitis | Phone: | [phone] Phone: | | | | | Diarrhea, | [phone] | [phone] | | | | | unspecified | Fax: | Fax: | | | | | Nausea | [phone] | [phone] | | | | | Right upper | | | | | | | quadrant | | | | | | | pain | | | | | | | Procedures | | | | | | | RESORT HOST OFFICE | | | | | | | VISIT | | | +--------+--------+ + + + + Encounter Details +--------+---------+ + + + | Date | Type | Department | Care Team | Description | +--------+---------+ + + + | 04/28/ | Office | [facility] | Jalil Jane | Diarrhea, | | 2019 | Visit | GASTROENTEROLOGY | MD Cosmo [address] | unspecified type | | | | [address] | [address] [place] | (Primary Dx); | | | | [address] [place], [place] | [place] [address] | Gastroesophageal | | | | [address] | [phone] | reflux disease, | | | | [phone] | | esophagitis presence | | | [...] history: She is no longer in the longterm, and is living with her boyfriend. Diarrhea [...] fail to improve. CC: Lyudmila Child, RENAN [address] [place] [address] Portions of this chart may have been created with [employer] voice recognition software. Occasi onal wrong-word or [...]
--- OUTSIDE RECORDS SUMMARY | ~2019-07-16 | XMS | Encounter Summary ---
Demographics + + + | Address | [address] | | | [place] [address] | + + + | Home Phone | | + + + | Preferred Language | Unknown | + + + | Marital Status | Single | + + + | Roman Catholic Affiliation | Unknown | + + + | Race | Unknown | + + + | Ethnic Group | Unknown | + + + Author + + + | Author | [facility] | | | and Paulana | + + + | Organization | [facility] | | | and Paulana [...] Team Providers + +------+ + | Care Acoustic Sensor Operator Name | Role | Phone | [...] [place] | | | | | [address] [place], [place] | [place] [address] | | | | | [address] | [phone] | | | | | [phone] | | | +--------+ + + + [...]
--- OUTSIDE RECORDS SUMMARY | ~2019-07-16 | XMS | Encounter Summary ---
Demographics + + + | Address | [address] | | | [place] [address] | + + + | Home Phone | | + + + | Preferred Language | Unknown | + + + | Marital Status | Single | + + + | Yazidi Affiliation | Unknown | + + + | Race | Unknown | + + + | Ethnic Group | Unknown | + + + Author + + + | Author | [facility] | | | and Paulana | + + + | Organization | [facility] | | | and Paulana [...] Team Providers + +------+ + | Care Logging Tractor Operator Name | Role | Phone | [...] | | | [address] [facility] | [place]. | | | | | [address] | [place] [address] | | | | | [address] | | | | | | [phone] | | | +--------+ + + + [...]
--- OUTSIDE RECORDS SUMMARY | ~2019-07-16 | XMS | Encounter Summary ---
Demographics + + + | Address | [address] | | | [place] [address] | + + + | Home Phone | | + + + | Preferred Language | Unknown | + + + | Marital Status | Single | + + + | Judaism Affiliation | Unknown | + + + | Race | Unknown | + + + | Ethnic Group | Unknown | + + + Author + + + | Author | [facility] | | | and Paulana | + + + | Organization | [facility] | | | and Paulana [...] Team Providers + +------+ + | Care J2Ee Android Developer Name | Role | Phone | + +------+ + | Lyudmila Child BUSINESS ACCOUNT SPECIALIST | PCP | | + +------+ + [...] | Gastro-esoph | [address] | METAL BONDING CRIB ATTENDANT [address] | | | | | ageal reflux | [address] | [place], [place] | | | | | disease | [place], | [address] [place] | | | | | without | [place] [address] | [place] | | | | | esophagitis | Phone: | [phone] Phone: | | | | | Diarrhea, | [phone] | [phone] | | | | | unspecified | Fax: | Fax: | | | | | Nausea | [phone] | [phone] | | | | | Right upper | | | | | | | quadrant | | | | | | | pain | | | | | | | Procedures | | | | | | | BUSINESS ACCOUNT SPECIALIST OFFICE | | | | | | | VISIT | | | +--------+--------+ + + + + Encounter Details +--------+---------+ + + + | Date | Type | Department | Care Team | Description | +--------+---------+ + + + | 01/22/ | Office | [facility] | Jalil Jane | Diarrhea, | | 2018 | Visit | GASTROENTEROLOGY | MD Cosmo [address] | unspecified type | | | | [address] | [address] [place] | (Primary Dx); | | | | [address] [place], [place] | [place] [address] | Irritable bowel | | | | [address] | [phone] | syndrome with | | | | [phone] | | diarrhea | +--------+---------+ + + [...] the contac t person at [facility] at to organize labs between patient and [facility]. Patient will go to [facility] to have Celiac drawn today. Spoke with Tia at [facility] this morning 01/23/19; advised we saw patient in clinic yesterday and will need time sensitive labs drawn; however, patient advised she would need assistance by someone at [facility] to assist in getting those labs to [facility]; rec ommended this be performed next week; will fax labs to [facility] today; Tia will advise Natalya bowens who is the individual in charge of patient cares at [facility]. Will follow up next week to ensure all parties are on board with obtaining labs. aing, Jalil Wilburn MD - 01/22/2019 3:00 PM PDTFor matting of this note might be different from the original. Outpatient Gastroenterology Consult Note Date of Office Visit: 01/23/19 Referring Provider: Lyudmila Child NP [address] [place], [place] [address] Providing Physician: Jalil Jane MD. Chief Complaint: [...] 11/18/18 and US abdomen , done at [facility]'s Assessment and Plan This is a 18 year old F with depression and DM1, who presents for diarrhea with abdominal p ain. Her symptoms are typical for IBS-D per Hawley criteria. She lacks any alarm symptoms for [...] 3 months (around 04/24/2019). CC: Lyudmila Child, BUSINESS ACCOUNT SPECIALIST [address] [place] [place] [address] Lyudmila Child, [id number] [place] [address] Portions of this chart may have been created with [employer] voice recognition software. Occasi onal wrong-word or [...] [place] [id number], | REFERENCE LAB | | [place], [place] [id number] Whipped Topping Supervisor: Samy Fofana MD, Phone: | [place] | | [phone] | | + + + + + + + + | Performing | Address | City/State/Zipcode | Phone Number | | Organization | | | | + + + + + | [facility] | [address] | [place] [address] | [phone] | | [facility] | [address] | | | + + + + + documented in this encounter Visit Diagnoses + + | Diagnosis | + + | Diarrhea, unspecified type - Primary | + + | Irritable bowel syndrome with diarrhea Irritable bowel syndrome | + + documented in this encounter
--- OUTSIDE RECORDS SUMMARY | ~2019-07-16 | XMS | Encounter Summary ---
Demographics + + + | Address | [address] | | | [place] [address] | + + + | Home Phone | | + + + | Preferred Language | Unknown | + + + | Marital Status | Single | + + + | Adventism Affiliation | Unknown | + + + | Race | Unknown | + + + | Ethnic Group | Unknown | + + + Author + + + | Author | [facility] | | | and Paulana | + + + | Organization | [facility] | | | and [...] Team Providers + +------+ + | Care Body And Frame Technician Name | Role | Phone | [...] + | 02/04/ | Telephone | [facility] | Jalil Jane | Medication Orders | | 2019 | | GASTROENTEROLOGY | MD Cosmo [address] | | | | | [address] | [address] [place] | | | | | [address] [place], [place] | [place] [address] | | | | | [address] | [phone] | | | | | [phone] | | | +--------+ + + + [...]
--- OUTSIDE RECORDS SUMMARY | ~2019-07-16 | XMS | Encounter Summary ---
Demographics + + + | Address | [address] | | | [place] [address] | + + + | Home Phone | | + + + | Preferred Language | Unknown | + + + | Marital Status | Single | + + + | Voodoo Affiliation | Unknown | + + + | Race | Unknown | + + + | Ethnic Group | Unknown | + + + Author + + + | Author | [facility] | | | and Paulana | + + + | Organization | [facility] | | [...] Team Providers + +------+ + | Care Ground Instructor Advanced Name | Role | Phone | + [...] + | 02/04/ | Telephone | [facility] | Jalil Jane | Medication Orders | | 2019 | | GASTROENTEROLOGY | MD Cosmo [address] | | | | | [address] | [address] [place] | | | | | [address] [place], [place] | [place] [address] | | | | | [address] | [phone] | | | | | [phone] | | | +--------+ + + + [...]
--- OUTSIDE RECORDS SUMMARY | ~2019-07-16 | XMS | Encounter Summary ---
Demographics + + + | Address | [address] | | | [place] [address] | + + + | Home Phone [...] + + + | Author | [facility] | | | and Paulana | + + + | Organization | [facility] | | | and [...] Team Providers + +------+ + | Care School Library Media Program Director Name | Role | Phone | + +------+ + | Lyudmila Child LANDSCAPE TECHNICIAN | PCP | | + +------+ [...] | | Gastro-esoph | [address] | CARTON GLUING MACHINE OPERATOR [address] | | | | | ageal reflux | [address] | [place], [place] | | | | | disease | [place], | [address] [place] | | | | | without | [place] [address] | FLORENTIN ROMAN | | | | | esophagitis | Phone: | [phone] Phone: | | | | | Diarrhea, | [phone] | [phone] | | | | | unspecified | Fax: | Fax: | | | | | Nausea | [phone] | [phone] | | | | | Right upper | | | | | | | quadrant | | | | | | | pain | | | | | | | Procedures | | | | | | | LANDSCAPE TECHNICIAN OFFICE | | | | | | | VISIT | | | +--------+--------+ + + + + Encounter Details +--------+---------+ + + + | Date | Type | Department | Care Team | Description | +--------+---------+ + + + | 01/22/ | Office | [facility] | Jalil Jane | Diarrhea, | | 2018 | Visit | GASTROENTEROLOGY | MD Cosmo [address] | unspecified type | | | | [address] | [address] [place] | (Primary Dx); | | | | [address] [place], [place] | [place] [address] | Irritable bowel | | | | [address] | [phone] | syndrome with | | | | [phone] | | diarrhea | +--------+---------+ + + [...] is the contac t person at [facility] at to organize labs between patient and [facility]. Patient will go to [facility] to have Celiac drawn today. Spoke with Tia at [facility] this morning 01/23/19; advised we saw patient in clinic yesterday and will need time sensitive labs drawn; however, patient advised she would need assistance by someone at [facility] to assist in getting those labs to [facility]; rec ommended this be performed next week; will fax labs to [facility] today; Tia will advise Natalya bowens who is the individual in charge of patient cares at [facility]. Will follow up next week to ensure all parties are on board with obtaining labs. aing, Jalil Wilburn MD - 01/22/2019 3:00 PM PDTFor matting of this note might be different from the original. Outpatient Gastroenterology Consult Note Date of Office Visit: 01/23/19 Referring Provider: Lyudmila Child NP [address] [place], [place] [address] Providing Physician: Jalil Jane MD. Chief Complaint: [...] Her symptoms are typical for IBS-D per [place] criteria. She lacks any alarm symptoms for [...] 3 months (around 04/24/2019). CC: Lyudmila Child, LANDSCAPE TECHNICIAN [address] [facility] [place] [address] Lyudmila Child, [id number] [place] [address] Portions of this chart may have been created with Education Elements voice recognition software. Occasi onal wrong-word or [...] [id number], | REFERENCE LAB | | [place], [place] [id number] Coarse Wire Drawer: Samy Fofana MD, Phone: | [place] | | [phone] | | + + + + + + + + | Performing | Address | City/State/Zipcode | Phone Number | | Organization | | | | + + + + + | [facility] | [address] | [place] [address] | [phone] | | [facility] | [address] | | | + + + + + documented in this encounter Visit Diagnoses + + | Diagnosis | + + | Diarrhea, unspecified type - Primary | + + | Irritable bowel syndrome with diarrhea Irritable bowel syndrome | + + documented in this encounter
--- OUTSIDE RECORDS SUMMARY | ~2019-07-16 | XMS | Encounter Summary ---
Demographics + + + | Address | [address] | | | [place] [address] | + + + | Home Phone | | + + + | Preferred Language | Unknown | + + + | Marital Status | Single | + + + | Latter Day Affiliation | Unknown | + + + | Race | Unknown | + + + | Ethnic Group | Unknown | + + + Author + + + | Author | [facility] | | | and Paulana | + + + | Organization | [facility] | | | and [...] Team Providers + +------+ + | Care Event Av Operator Name | Role | Phone | [...] + | 02/04/ | Telephone | [facility] | Jalil Jane | Medication Orders | | 2019 | | GASTROENTEROLOGY | MD Cosmo [address] | | | | | [address] | [address] [place] | | | | | [address] [place], [place] | [place] [address] | | | | | [address] | [phone] | | | | | [phone] | | | +--------+ + + + [...]
--- OUTSIDE RECORDS SUMMARY | ~2019-07-16 | XMS | Encounter Summary ---
Demographics + + + | Address | [address] | | | [place] [address] | + + + | Home Phone | | + + + | Preferred Language | Unknown | + + + | Marital Status | Single | + + + | Pentecostalism Affiliation | Unknown | + + + | Race | Unknown | + + + | Ethnic Group | Unknown | + + + Author + + + | Author | [facility] | | | and Paulana | + + + | Organization | [facility] | | | and Paulana | [...] Team Providers + +------+ + | Care Bulldozer Press Operator Name | Role | Phone | [...] [place] | | | | | [address] [place], [place] | [place] [address] | | | | | [address] | [phone] | | | | | [phone] | | | +--------+ + + + [...]
--- OUTSIDE RECORDS SUMMARY | ~2019-07-16 | XMS | Encounter Summary ---
Demographics + + + | Address | [address] | | | [place] [address] | + + + | Home Phone [...] | Author | [facility] | | | and Paulana | + + + | Organization | [facility] | | | and Paulana [...] Team Providers + +------+ + | Care Women'S Ministry Director Name | Role | Phone | + +------+ + | Lyudmila Child MANAGER EXPORT | PCP | | + +------+ + [...] | | Gastro-esoph | [address] | DERMATOLOGY TEACHER [address] | | | | | ageal reflux | [address] | [place], [place] | | | | | disease | [place], | [address] [place] | | | | | without | [place] [address] | FLORENTIN ROMAN | | | | | esophagitis | Phone: | [phone] Phone: | | | | | Diarrhea, | [phone] | [phone] | | | | | unspecified | Fax: | Fax: | | | | | Nausea | [phone] | [phone] | | | | | Right upper | | | | | | | quadrant | | | | | | | pain | | | | | | | Procedures | | | | | | | MANAGER EXPORT OFFICE | | | | | | | VISIT | | | +--------+--------+ + + + + Encounter Details +--------+---------+ + + + | Date | Type | Department | Care Team | Description | +--------+---------+ + + + | 04/28/ | Office | [facility] | Jalil Jane | Diarrhea, | | 2019 | Visit | GASTROENTEROLOGY | MD Cosmo [address] | unspecified type | | | | [address] | [address] [place] | (Primary Dx); | | | | [address] [place], [place] | [place] [address] | Gastroesophageal | | | | [address] | [phone] | reflux disease, | | | | [phone] | | esophagitis presence | | | [...] history: She [facility] [place] [facility], and is living with her boyfriend. Diarrhea [...] fail to improve. CC: Lyudmila Child, RENAN [address] [place] [address] Portions of this chart may have been created with Storyful voice recognition software. Occasi onal wrong-word or [...]
--- OUTSIDE RECORDS SUMMARY | ~2019-07-16 | XMS | Clinical Summary ---
Demographics + + + | Address | [address] | | | [place] [address] | + + + | Home Phone | | + + + | Preferred Language | Unknown | + + + | Marital Status | Single | + + + | Protestant Affiliation | Unknown | + + + | Race | Unknown | + + + | Ethnic Group | Unknown | + + + Author + + + | Author | [facility] | | | and Paulana | + + + | Organization | [facility] | | | and [...] Team Providers + +------+ + | Care Grain Shoveler Name | Role | Phone | + +------+ + | Lyudmial Child BUTT TRIMMER | PCP | | + +------+ + [...] + + + | 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
--- OUTSIDE RECORDS SUMMARY | ~2019-07-16 | XMS | Clinical Summary ---
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
--- OUTSIDE RECORDS SUMMARY | ~2019-07-16 | XMS | Encounter Summary ---
Demographics + + + | Address | [address] | | | [place] [address] | + + + | Home Phone [...] | [facility] | | | and Paulana | + + + | Organization | [facility] | | | [...] Team Providers + +------+ + | Care Repair Tech Name | Role | Phone | + +------+ + | Lyudmila Child MED PEDS | PCP | | + +------+ + [...] | | Gastro-esoph | [address] | ENVELOPE FOLDING MACHINE OPERATOR [address] | | | | | ageal reflux | [address] | [place], [place] | | | | | disease | [place], | [address] [place] | | | | | without | [place] [address] | FLORENTIN ROMAN | | | | | esophagitis | Phone: | [phone] Phone: | | | | | Diarrhea, | [phone] | [phone] | | | | | unspecified | Fax: | Fax: | | | | | Nausea | [phone] | [phone] | | | | | Right upper | | | | | | | quadrant | | | | | | | pain | | | | | | | Procedures | | | | | | | MED PEDS OFFICE | | | | | | | VISIT | | | +--------+--------+ + + + + Encounter Details +--------+---------+ + + + | Date | Type | Department | Care Team | Description | +--------+---------+ + + + | 01/22/ | Office | [facility] | Jalil Jane | Diarrhea, | | 2018 | Visit | GASTROENTEROLOGY | MD Cosmo [address] | unspecified type | | | | [address] | [address] [place] | (Primary Dx); | | | | [address] [place], [place] | [place] [address] | Irritable bowel | | | | [address] | [phone] | syndrome with | | | | [phone] | | diarrhea | +--------+---------+ + + [...] the contac t person at [facility] at to organize labs between patient and [facility]. Patient will go to [facility] to have Celiac drawn today. Spoke with Tia at [facility] this morning 01/23/19; advised we saw patient in clinic yesterday and will need time sensitive labs drawn; however, patient advised she would need assistance by someone at [facility] to assist in getting those labs to [facility]; rec ommended this be performed next week; will fax labs to [facility] today; Tia will advise Natalya bowens who is the individual in charge of patient cares at [facility]. Will follow up next week to ensure all parties are on board with obtaining labs. aing, Jalil Wilburn MD - 01/22/2019 3:00 PM PDTFor matting of this note might be different from the original. Outpatient Gastroenterology Consult Note Date of Office Visit: 01/23/19 Referring Provider: Lyudmila Child NP [address] [place], [place] [address] Providing Physician: Jalil Jane MD. Chief Complaint: [...] Her symptoms are typical for IBS-D per [place] criteria. She lacks any alarm symptoms for [...] 3 months (around 04/24/2019). CC: Lyudmila Child, MED PEDS [address] [place] [address] Lyudmila Child, [id number] [facility] [place] [address] Portions of this chart may have been created with Quantapore voice recognition software. Occasi onal wrong-word or [...] [id number], | REFERENCE LAB | | [place], [place] [id number] Transformer Assembly Supervisor: Samy Fofana MD, Phone: | [place] | | [phone] | | + + + + + + + + | Performing | Address | City/State/Zipcode | Phone Number | | Organization | | | | + + + + + | [facility] | [address] | [place] [address] | [phone] | | [facility] | [address] | | | + + + + + documented in this encounter Visit Diagnoses + + | Diagnosis | + + | Diarrhea, unspecified type - Primary | + + | Irritable bowel syndrome with diarrhea Irritable bowel syndrome | + + documented in this encounter
--- OUTSIDE RECORDS SUMMARY | 2019-07-16 11:24 | XMS ---
PreManage Notification: FAUSTINO JIMENEZ Security Customer Field Representative Events No recent Security Events currently on file CRITERIA MET - 6 ED Visits in 6 Months - [facility] - Has Care Guidelines - [facility] - 2 Visits in 30 Days CARE PROVIDERS Bayron Mill Oiler/Water System Operator [facility] PHONE: [phone] FATOU [facility] 01/26/2019-[facility] PRIMARY CARE PHONE: [phone] NICKO YANCEY Nurse Practitioner: Women's Health 03/31/2018-Current PHONE: [phone] YAW SAMANIEGO Internal Medicine: Endocrinology, Diabetes 05/13/2018-Current \T\ Metabolism PHONE: [phone] NICKO YANCEY Primary Care Current PHONE: Unknown [facility] Primary Care 01/26/2019-[facility] PRIMARY CARE FATOU PHONE: [phone] RIA NEFF Primary Care Current PHONE: Unknown [facility] Primary Care 09/26/2017-Jose RADFORD PHONE: [phone] [facility] Current PHONE: Unknown RIA NEFF [facility] Current PHONE: Unknown ELIZABETH [facility] PHONE: Unknown ELIZABETH [facility] PHONE: Unknown [facility] Case or Gamma Operator Current [facility] PHONE: [phone] [facility] [place] Current PHONE: [phone] SUE MARTINEZ Primary Care 11/20/2016-Current PHONE: [phone] Guidelines Source: [facility] Guidelines Date: 05/13/2018 Care Coordination: PATIENT LIVES AT [facility] [employer].\T\nbsp; THEY HAVE STANDING ORDERS FOR TREATMENT OF HER DIABETES THROUGH HER CUSTOMER SUPPORT PROFESSIONAL DR YAW SAMANIEGO MD, [facility] [phone] .\T\nbsp; SEE ATTACHED COPY OF STANDING ORDERS. Additional care guidelines exist for the following facilities: [facility] ( 06/05/2019 ) [place] [address] ( 03/02/2019 ) Care History Social 11/29/2016 [place] [address] Client has Family Care Water System Operator Elisha Ward [phone]. Medical/Surgical 07/29/2018 [facility] PATIENT HAS STANDING ORDERS AT [facility] [employer]. FROM CUSTOMER SUPPORT PROFESSIONAL (SEE ATTACHMENTS) YAW SAMANIEGO (PHONE/[phone])(FAX/) .\T\nbsp; STANDING ORDERS FOR BLOOD SUGAR CHECKS, TREATMENT OF HYPGLYCEMIA AND HYPERGLYCEMIA INCLUDING URINE DIP FOR KETONES. TREATMENT FOR BLOOD SUGARS LESS THAN 80MG/DL AND FOR BLOOD SUGARS OVER 500MG/DL INCLUDED IN TREATMENT. 04/22/2018 [facility] - PATIENT RESCHEDULED APT FOR ED FOLLOW UP WITH PCP NICKO YANCEY ON 04/18/18 NEXT PCP APT IS ON 04/29/18 FOR ED FOLLOW UP. - PLEASE REFER PATIENT TO PCP FOR FOLLOW UP CARE FOR ANY NON EMERGENT MEDICAL NEEDS. 03/03/2018 [facility] - CHW contacted patient discussed ED utilization and the amount of ED visits that will start case management more involvement. - Patient stated she understood and will be utilizing her PCP going forward. - Patient stated she will make an apt with her PCP on 03/04/18. Behavioral 11/29/2016 [place] [address] Client attends [phone] [employer] therapist Prisca Paris [phone] jaimie. Plotter E.D. VISIT COUNT (12 MO.) 8 [facility]. TOTAL 8 NOTE: Visits indicate total known visits. ED/UCC VISIT TRACKING (12 MO.) 07/16/2019 11:21 [facility] [place] TYPE: Emergency COMPLAINT: - BLOOD SUGAR PROBLEM 06/19/2019 15:13 [facility] [place] TYPE: Emergency COMPLAINT: - DIABETIC PROBLEM DIAGNOSES: - Radiographic dye allergy status - [facility]biol [facility]st status - 1 Type 1 diabetes mellitus without complications - Other custodial (current) drug therapy - exterminator helper termite (current) use of insulin - Anxiety disorder, unspecified 06/01/2019 14:56 [facility] [place] TYPE: Emergency COMPLAINT: - BLOOD SUGAR PROBLEM 04/23/2019 17:53 [facility] [place] TYPE: Emergency COMPLAINT: - ABDOMINAL PAIN/VOMITING DIAGNOSES: - 1 Type 1 diabetes mellitus without complications - Anxiety disorder, unspecified - Nausea with vomiting, unspecified - Radiographic dye allergy status - Other custodial (current) drug therapy - Noninfective gastroenteritis and colitis, unspecified 03/23/2019 17:20 [facility] [place] TYPE: Emergency COMPLAINT: - DIABETIC ISSUE, BLOOD SUGAR PROBLEM 03/22/2019 15:15 [facility] [place] TYPE: Emergency COMPLAINT: - POSS BLOOD SUGAR ISSUES DIAGNOSES: - Anxiety disorder, unspecified - Upper abdominal pain, unspecified - 1 Type 1 diabetes mellitus with ketoacidosis without coma - Other extermination inspector (current) drug therapy 11/06/2018 18:58 [facility] [place] TYPE: Emergency COMPLAINT: - R ABD PAIN/CONSTIPATION DIAGNOSES: - Anxiety disorder, unspecified - Epigastric pain - Other extermination inspector (current) drug therapy - Peptic ulc, site unsp, unsp as ac or chr, w/o hemor or perf - FCI (current) use of oral hypoglycemic drugs - 1 Type 1 diabetes mellitus without complications 10/21/2018 14:14 [facility] [place] TYPE: Emergency COMPLAINT: - R FLANK PAIN,NON INJURY DIAGNOSES: - Anxiety disorder, unspecified - Gastritis, unspecified, without bleeding - 1 Type 1 diabetes mellitus without complications - exterminator helper termite (current) use of insulin - Unspecified abdominal pain - Other extermination inspector (current) drug therapy INPATIENT VISIT TRACKING (12 MO.) 06/01/2019 14:57 [facility] [place] TYPE: Observation COMPLAINT: - DKA DIAGNOSES: - Allergy status to oth drug/meds/biol subst status - Other extermination inspector (current) drug therapy - Insect bite (nonvenomous), [...] left lower leg, initial encounter 03/23/2019 21:32 [facility] [place] TYPE: Critical Care COMPLAINT: - DIABETIC ISSUE, BLOOD SUGAR PROBLEM DIAGNOSES: - Sepsis, unspecified organism Sepsis, u - Radiographic dye allergy status - Other custodial (current) drug therapy - 1 Type 1 diabetes mellitus with ketoacidosis without coma - Acute pyelonephritis - Unspecified mood [affective] disorder - Acute respiratory failure with hypoxia - Sepsis due to Escherichia coli [E. coli] Sepsis du - Resistance to multiple antimicrobial drugs - FCI (current) use of insulin - Gastro-esophageal reflux disease without esophagitis [email or web address]
--- NOTE | 2019-07-16 14:24 | NUR ---
IV SITE IS INTACT, NO REDNESS OR SWELLING NOTED, PT DENIES PAIN IN SITE. PT IS ALERT AND ORIENTED X4.
--- NOTE | 2019-07-16 15:13 | NUR ---
INSULIN DRIP TITRATED TO 4.2 UNITS/HR PER INSULIN PROTOCOL.
--- NOTE | 2019-07-16 15:22 | EKG ---
[facility] [address] [place], [place] [address] Signed Sinus tachycardia Otherwise normal ECG When compared with ECG of 23-MAR-2019 17:53, No significant change was found Confirmed by MADINA DESAI DO ([id number]) on 07/16/2019 3:21:49 PM Electronically Signed By: MADINA DESAI DO 07/16/19 1522 PATIENT NAME: TONYFAUSTINO IZABEL Electrocardiogram DATE OF : 89 PHYSICIAN: MADINA DESAI DO REPORT #: [id number] REPORT IS CONFIDENTIAL AND NOT TO BE RELEASED WITHOUT AUTHORIZATION
[2019-07-16] MEDS ORDERED: MINIPRESS1 MG PO (15:40)
--- NOTE | 2019-07-16 15:51 | NUR ---
PT UP AND AMBULATED TO THE BATHROOM TO VOID WITH ASSISTANCE ONLY FOR CORD MANAGEMENT. PT IS STEADY ON HER FEET, INDEPENDENT WITH SELF CARES. PT ABLE TO VOID LARGE AMOUNTS.
--- NOTE | 2019-07-16 16:14 | NUR ---
INSULIN DRIP TITRATED TO 6.3 UNITS/HR PER INSULIN PROTOCOL.
--- NOTE | 2019-07-16 16:46 | NUR ---
PT UP TO THE BATHROOM MULTIPLE TIMES, PT STATES "I KEEP FEELING LIKE I NEED TO PEE". PT DENIES PAIN, NAUSEA AND SOB. PT ARNOLD ACTIVITY WELL, IS INDEPENDENT WITH AMBULATION AND PERSONAL CARES. NOTED THAT PT IS ON HER MENSES.
--- NOTE | 2019-07-16 17:15 | NUR ---
TITRATED INSULIN DRIP TO 5.1 UNITS PER INSULIN PROTOCOL, PT CURRENTLY SLEEPING.
--- NOTE | 2019-07-16 18:21 | NUR ---
CALLED TO REPORT CARBON DIOXIDE OF 11.0, NO NEW ORDERS AT THIS TIME. TITRATED INSULIN DRIP TO 3.6 UNITS/HR PER INSULIN PROTOCOL. BLOOD GLUCOSE IS NOW 175, IV FLUIDS SWITCHED TO D5 1/2 NS AT 125.
--- NOTE | 2019-07-16 19:42 | NUR ---
REPORT RC'D FROM DAY SHIFT NURSE DEB. PT IN BED WITH FAMILY AT BEDSIDE. INSULIN GTT INFUSING AT 3.6 UNITS/HR.
--- NOTE | 2019-07-16 20:28 | NUR ---
LABS COMPLETED. CBG 177, INSULIN GTT TO REMAINS AT 3.6 UNITS/HR PER PROTOCOL. AAOX4. SINUS TACH ON MONITOR. LUNGS CLEAR THROUGHOUT AND 100% SPO2 ON ROOM AIR. BOWEL TONES ACTIVE. C/O MENSTRUAL CRAMPS, PRN TYLENOL OFFERED, PT DECLINED, HEAT PAD OFFERED AND PLACED. NO EDEMA. INTEGUMENTARY INTACT. IV SITES PATENT AND WNL. D5 1/2 NS INFUSING AT 125. UPDATED PLAN OF CARE. SAFETY AND FALL PREVENTION REINFORCED. DENIES OTHER NEEDS. CALL LIGHT WITHIN REACH.
--- NOTE | 2019-07-16 21:20 | NUR ---
CBG 159, INSULIN GTT TITRATED TO 2 UNITS/HR. DR. DESAI UPDATED ON PT'S CONDITION AND LABS, ORDER TO ADVANCE DIET TOLERATED TO 60G CARB CONSISTENT DIET.
--- NOTE | 2019-07-16 22:00 | NUR ---
CBG 240, INSULIN GTT TITRATED TO 5.1 UNITS/HR.
--- NOTE | 2019-07-16 23:00 | NUR ---
CBG 265, INSULIN GTT TITRATED TO 8.4 UNITS/HR.
--- NOTE | 2019-07-17 | NUR ---
NO ACUTE CHANGES TO ASSESSMENT. CBG 243, INSULIN GTT TITRATED TO 6.8 UNITS/HR. DENIES OTHER NEEDS. CALL LIGHT WITHIN REACH.
--- NOTE | 2019-07-17 01:05 | NUR ---
CBG 180, INSULIN GTT TITRATED TO 4.8 UNITS/HR.
--- NOTE | 2019-07-17 02:00 | NUR ---
CBG 157, INSULIN GTT TITRATED TO 3 UNITS/HR
--- NOTE | 2019-07-17 03:11 | NUR ---
cbg 130, insulin gtt titrated to 1.4 units/hr.
--- NOTE | 2019-07-17 04:24 | NUR ---
ASSESSMENT UNCHANGED. CBG 140, INSULIN GTT TITRATED TO 2.4 UNITS/HR. PT TOELRATING CLEARS WITHOUT NAUSEA.
--- NOTE | 2019-07-17 05:00 | NUR ---
CBG 131, INSULING GTT REMAINS AT 2.4 UNITS/HR.
--- NOTE | 2019-07-17 06:00 | NUR ---
CBG 125, INSULIN GTT TITRATED TO 1.4 UNITS/HR.
--- NOTE | 2019-07-17 07:08 | NUR ---
cbg 142, insulin gtt titrated to 2.7 units/hr
--- NOTE | 2019-07-17 08:02 | NUR ---
PER VERBAL ORDER, INSULIN DRIP AND IV FLUIDS OFF AT THIS TIME. PT REATTACHED OWN HOME INSULIN PUMP TO BEGIN HOME REGIMEN. PT IS ALERT AND ORIENTED X4, DENIES PAIN, NAUSEA AND SOB.
--- NOTE | 2019-07-17 09:26 | NUR ---
PT ABLE TO ARNOLD 100% OF BREAKFAST, DENIES NAUSEA. PT IS SITTING UP IN BED DRINKING COFFEE AND WATCHING TV AT THIS TIME.
--- NOTE | 2019-07-17 10:30 | NUR ---
SPOKE WITH PATIENT IN ROOM. BOYFRIEND IS ASLEEP ON COUCH. PATIENT STATES HER PUMP GOT "KNOCKED LOOSE". SHE STATES SHE FEELS MUCH BETTER. PATIENT IS STILL SEEING LCAC OPERATOR IN [place]. DISCUSSED IMPORTANCE OF KEEPING PUMP WORKING HER SUGARS ARE FRAGILE. SHE STATES SHE WILL TRY AND SECURE IT BETTER. PT STATES SHE LIVES WITH BOYFRIEND AND HE DRIVES HER TO APPOINTMENTS. DENIES QUESTIONS. FEELS SAFE TO RETURN HOME AT DISCHARGE. DISCUSSED IMPORTANCE OF ROUTINELY SEEING PCP AND SPECIALIST. STATES UNDERSTNADING. WILL FOLLOW NEEDED.
--- NOTE | 2019-07-17 10:59 | NUR ---
PT IS AWAKE AND ALERT X4. BLOOD GLUCOSE IS 370, PT STATES "MY PUMP SAYS I STILL HAVE 5.5 UNITS ACTIVE". PT ALSO REPORTS PUMP WILL NOT CORRECT FOR BLOOD GLUCOSE YET DUE TO INSULIN ON BOARD.
[2019-07-17] MEDS ORDERED: BASAGLAR K100 UNIT/1 SUB-Q (12:17)
[2019-07-17] MEDS ORDERED: [UNRECOGNIZED DRUG - OTHER] XX (12:17)
--- NOTE | 2019-07-17 12:19 | NUR ---
PT BLOOD GLUCOSE IS 440, DISCUSSED POSSIBILITY OF INSULIN OR PUMP SITE BEING DEFECTIVE. OFFERED LONG ACTING INSULIN, CORRECTIONAL INSULIN, AND MEALTIME INSULIN, PT IS AGREABLE TO THIS. PT REPORTS SHE NEEDS LANTUS AND NEEDLES FOR HOME, PERSCRIPTIONS TO BE SENT TO PHARMACY BY .
--- NOTE | 2019-07-17 13:12 | NUR ---
PT GIVEN BOTH CORRECTIONAL INSULIN AND LONG ACTING INSULIN PER 'S ORDERS. PT INSULIN PUMP IS DETACHED FROM HER BODY AT THIS TIME.
--- NOTE | 2019-07-17 13:42 | NUR ---
PATIENT CALLED AND ASKED FOR SOME TYLENOL FOR HER MENSTRATION CRAMPS. PRN TYLENOL ADMINISTERED. PATIENT ALREADY HAS HEAT PACK TO LOWER ABDOMEN AT THIS TIME. WILL CONTINUE TO CLOSELY MONITOR.
--- NOTE | 2019-07-17 14:49 | NUR ---
INSULIN DRIP STARTED AT 6 UNITS/HOUR PER INSULIN PROTOCOL. PT IS AWARE OF THIS CHANGE IN THE CARE PLAN.
--- NOTE | 2019-07-17 15:37 | NUR ---
INSULIN DRIP TIRTATED TO 4.2 UNITS/HOUR PER PROTOCOL. PT REMAINS ALERT AND ORIENTED X 4, TAKING PLENTY OF PO FLUIDS AND VOIDS LARGE AMOUNTS.
--- NOTE | 2019-07-17 20:00 | NUR ---
AAOX4. SINUS TACH WITH HR 90-110. LUNGS CLEAR THROUGHOUT, SPO2 100% ON ROOM AIR. AFEBRILE. DENIES PAIN. BOWEL TONES ACTIVE, TOLERATING 60G CARB DIET, DENIES NAUSEA. INTEGUMENTARY INTACT. IV SITE FLUSHED, PATENT, AND WNL. CBG 1896, INSUKING GTT INFUSING AT 1.2 UNITS/HR. PHONE CALL TO DR. JAY TO UPDATE ON PT'S CONDITION, SEE PROVIDER CONTACT NOTE.
--- NOTE | 2019-07-17 21:00 | NUR ---
INSULIN GTT STOPPED AND DC'D AT THIS TIME. SLIDING SCALE GIVEN. WILL REASSESS CBG. ADVISED PT TO NOTIFY OF S/SX OF HYPO/HYPERGLYCEMIA, VERBALIZED UNDERSTANDING AND AGREEABLE. DENIES OTHER NEEDS. CALL LIGHT WITHIN REACH.
--- NOTE | 2019-07-17 23:57 | NUR ---
NO ACUTE CHANGES TO ASSESSMENT. REASSESSED CBG AND NOTED TO BE 129. DENEIS OTHER NEEDS. CALL LIGHT WITHIN REACH.
--- NOTE | 2019-07-18 02:00 | NUR ---
PT RESTING, NO ACUTE DISTRESS NOTED.
--- NOTE | 2019-07-18 04:09 | NUR ---
NO CHANGES TO ASSESSMENT. PT REMAINS RESTFUL. CBG REASSESSED AND NOTED TO BE 148. DENIES OTHER NEEDS. CALL LIGHT WITHIN REACH.
--- NOTE | 2019-07-18 06:00 | NUR ---
PT RESTING AT THIS TIME. NO ACUTE DISTRESS NOTED
--- NOTE | 2019-07-18 08:16 | NUR ---
PT IS AWAKE AND ALERT THIS AM. PT DENIES PAIN, NAUSEA, AND SOB. PT IS SITTING UP IN BED, INTERESTED IN ORDERING BREAKFAST. PT GIVEN PHONE AND MENUE. PT STATES "I'M READY TO GO HOME" SHE REMAINS COOPERATIVE AND POLITE. PT IV SITES INTACT, NO SWELLING OR REDNESS NOTED. VITALS ARE WNL.
--- NOTE | 2019-07-18 08:40 | NUR ---
FULL HEAD TO TOE ASSESSMENT DEFFERED AT THIS TIME PT HAS D/C ORDERS ENTERED.
--- NOTE | 2019-07-18 09:05 | NUR ---
IV SITES DC'D WNL. NO REDNESS OR SWELLING NOTED, TIP OF BOTH CATHS ARE INTACT. PT ARNOLD WELL, NO BLEEDING NOTED AT EITHER SITE.
--- NOTE | 2019-07-18 10:18 | NUR ---
D/C PAPERWORK IS COMPLETE, PT ABLE TO AMBULATE OFF OF UNIT ON HER OWN WITH FRIEND. PT IS ALERT AND ORIENTED X4, DENIES PAIN, NAUSEA, AND SOB AT THIS TIME. PT ABLE TO ARNOLD 100% OF HER BREAKFAST.
== END 2019-07-18 10:20 | disposition home or self-care (01) ==
LOC: ED 11:21 → CCU 11:22
PROVIDERS: ADMIT Student in an Organized Health Care Education/Training Program
DX: E10.10 Type 1 diabetes mellitus with ketoacidosis without coma (principal); F39 Unspecified mood [affective] disorder; Z79.899 Other long term (current) drug therapy; Z96.41 Presence of insulin pump (external) (internal); Z88.8 Allergy status to other drugs, medicaments and biological substances; Z91.041 Radiographic dye allergy status
CPT/HCPCS: 36415; 80048; 80053; 81001; 82010; 82800; 83735; 84100; 84703; 85025; 93005; 93010; 96361; 96374; 96375; 99285-25; G0378; J1815; J2405; J3475; J3480; J7030; J7042; J7060; J7121

== ENCOUNTER 2019-08-05 00:45 | Emergency (ER) | payer OTHER ==
[~2019-08-05] VITALS: Ht 162.6 cm; Wt 93.1 kg
--- OUTSIDE RECORDS SUMMARY | ~2019-08-05 | XMS | Encounter Summary ---
Demographics + + + | Address | [address] | | | [place] [address] | + + + | Home Phone | | + + + | Preferred Language | Unknown | + + + | Marital Status | Single | + + + | Mosque Affiliation | Unknown | + + + | Race | Unknown | + + + | Ethnic Group | Unknown | + + + Author + + + | Author | [facility] | | | and Paulana | + + + | Organization | [facility] | | | and [...] Team Providers + +------+ + | Care Content Architect Name | Role | Phone | + [...] [place] | | | | | [address] [place], [place] | [place] [address] | | | | | [address] | [phone] | | | | | [phone] | | | +--------+ + + + [...]
--- OUTSIDE RECORDS SUMMARY | ~2019-08-05 | XMS | Encounter Summary ---
Demographics + + + | Address | [address] | | | [place] [address] | + + + | Home Phone | | + + + | Preferred Language | Unknown | + + + | Marital Status | Single | + + + | Yazdanism Affiliation | Unknown | + + + | Race | Unknown | + + + | Ethnic Group | Unknown | + + + Author + + + | Author | [facility] | | | and Paulana | + + + | Organization | [facility] | | | and [...] Team Providers + +------+ + | Care Special Tester Name | Role | Phone | + [...] | | | [address] [facility] | [place]. | | | | | [address] | [place] [address] | | | | | [address] | | | | | | [phone] | | | +--------+ + + + [...]
--- OUTSIDE RECORDS SUMMARY | ~2019-08-05 | XMS | Encounter Summary ---
Demographics + + + | Address | [address] | | | [place] [address] | + + + | Home Phone | | + + + | Preferred Language | Unknown | + + + | Marital Status | Single | + + + | Yarsanism Affiliation | Unknown | + + + | Race | Unknown | + + + | Ethnic Group | Unknown | + + + Author + + + | Author | [facility] | | | and Paulana | + + + | Organization | [facility] [...] Team Providers + +------+ + | Care Finisher Card Tender Name | Role | Phone | + [...] | | | [address] [facility] | [place]. | | | | | [address] | [place] [address] | | | | | [address] | | | | | | [phone] | | | +--------+ + + + [...]
--- OUTSIDE RECORDS SUMMARY | ~2019-08-05 | XMS | Encounter Summary ---
Demographics + + + | Address | [address] | | | [place] [address] | + + + | Home Phone | | + + + | Preferred Language | Unknown | + + + | Marital Status | Single | + + + | Buddhism Affiliation | Unknown | + + + | Race | Unknown | + + + | Ethnic Group | Unknown | + + + Author + + + | Author | [facility] | | | and Paulana | + + + | Organization | [facility] | | | and Paulana | [...] Team Providers + +------+ + | Care Dye House Helper Name | Role | Phone | + +------+ + | Lyudmila hCild RESERVE OPERATOR | PCP | | + +------+ [...] | | Gastro-esoph | [address] | COGNOS BI ADMINISTRATOR [address] | | | | | ageal reflux | [address] | [place], [place] | | | | | disease | [place], | [address] [place] | | | | | without | [place] [address] | [place] | | | | | esophagitis | Phone: | [phone] Phone: | | | | | Diarrhea, | [phone] | [phone] | | | | | unspecified | Fax: | Fax: | | | | | Nausea | [phone] | [phone] | | | | | Right upper | | | | | | | quadrant | | | | | | | pain | | | | | | | Procedures | | | | | | | RESERVE OPERATOR OFFICE | | | | | | | VISIT | | | +--------+--------+ + + + + Encounter Details +--------+---------+ + + + | Date | Type | Department | Care Team | Description | +--------+---------+ + + + | 01/22/ | Office | [facility] | Jalil Jane | Diarrhea, | | 2018 | Visit | GASTROENTEROLOGY | MD Comso [address] | unspecified type | | | | [address] [place] | [address] [place] | (Primary Dx); | | | | [address] [place], [place] | [place] [address] | Irritable bowel | | | | [address] | [phone] | syndrome with | | | | [phone] | | diarrhea | +--------+---------+ + + [...] [place] is the contac t person at [facility] at to organize labs between patient and [facility]. Patient will go to [facility] to have Celiac drawn today. Spoke with Tia at [facility] this morning 01/23/19; advised we saw patient in clinic yesterday and will need time sensitive labs drawn; however, patient advised she would need assistance by someone at [facility] to assist in getting those labs to [facility]; rec ommended this be performed next week; will fax labs to [facility] today; Tia will advise Natalya bowens who is the individual in charge of patient cares at [facility]. Will follow up next week to ensure all parties are on board with obtaining labs. aing, Jalil Wilburn MD - 01/22/2019 3:00 PM PDTFor matting of this note might be different from the original. Outpatient Gastroenterology Consult Note Date of Office Visit: 01/23/19 Referring Provider: Lyudmila Child NP [address] [place], [place] [address] Providing Physician: Jalil Jane MD. Chief Complaint: [...] 11/18/18 and US abdomen , done at [facility]'s Assessment and Plan This is a 18 year old F with depression and DM1, who presents for diarrhea with abdominal p ain. Her symptoms are typical for IBS-D per [place] criteria. She lacks any alarm symptoms for [...] 3 months (around 04/24/2019). CC: Lyudmila Child, RESERVE OPERATOR [address] [place] [address] Lyudmila Child, [id number] [place] [address] Portions of this chart may have been created with [employer] voice recognition software. Occasi onal wrong-word or [...] [place] [id number], | REFERENCE LAB | | [place], [place] [id number] Assessor: Samy Fofana MD, Phone: | BLAYNE VICTORIA | | [phone] | | + + + + + + + + | Performing | Address | City/State/Zipcode | Phone Number | | Organization | | | | + + + + + | [facility] | [address] | [place] [address] | [phone] | | [facility] | [address] | | | + + + + + documented in this encounter Visit Diagnoses + + | Diagnosis | + + | Diarrhea, unspecified type - Primary | + + | Irritable bowel syndrome with diarrhea Irritable bowel syndrome | + + documented in this encounter
--- OUTSIDE RECORDS SUMMARY | ~2019-08-05 | XMS | Encounter Summary ---
Demographics + + + | Address | [address] | | | [place] [address] | + + + | Home Phone | | + + + | Preferred Language | Unknown | + + + | Marital Status | Single | + + + | Anabaptism Affiliation | Unknown | + + + | Race | Unknown | + + + | Ethnic Group | Unknown | + + + Author + + + | Author | [facility] | | | and Paulana | + + + | Organization | [facility] | [...] Team Providers + +------+ + | Care Button Buttonhole Marker Name | Role | Phone | + [...] [place] | | | | | [address] [place], [place] | [place] [address] | | | | | [address] | [phone] | | | | | [phone] | | | +--------+ + + + [...]
--- OUTSIDE RECORDS SUMMARY | ~2019-08-05 | XMS | Encounter Summary ---
Demographics + + + | Address | [address] | | | [place] [address] | + + + | Home Phone | | + + + | Preferred Language | Unknown | + + + | Marital Status | Single | + + + | Christian Affiliation | Unknown | + + + | Race | Unknown | + + + | Ethnic Group | Unknown | + + + Author + + + | Author | [facility] | | | and Paulana | + + + | Organization | [facility] | [...] Team Providers + +------+ + | Care Brass Instrument Repair Technician Name | Role | Phone | [...] + | 02/04/ | Telephone | [facility] | Jalil Jane | Medication Orders | | 2019 | | GASTROENTEROLOGY | MD Cosmo [address] | | | | | [address] | [address] [place] | | | | | [address] [place], [place] | [place] [address] | | | | | [address] | [phone] | | | | | [phone] | | | +--------+ + + + [...]
--- OUTSIDE RECORDS SUMMARY | ~2019-08-05 | XMS | Encounter Summary ---
Demographics + + + | Address | [address] | | | [place] [address] | + + + | Home Phone [...] | Author | [facility] | | | and Paulana | + + + | Organization | [facility] | | | and Paulana [...] Team Providers + +------+ + | Care Property Portfolio Officer Name | Role | Phone | + +------+ + | Lyudmila Child HOSPITALIST PROGRAM DIRECTOR | PCP | | + +------+ + [...] | | Gastro-esoph | [address] | BROADCAST SUPERVISOR [address] | | | | | ageal reflux | [address] | [place], [place] | | | | | disease | [place], | [address] [place] | | | | | without | [place] [address] | [place] | | | | | esophagitis | Phone: | [phone] Phone: | | | | | Diarrhea, | [phone] | [phone] | | | | | unspecified | Fax: | Fax: | | | | | Nausea | [phone] | [phone] | | | | | Right upper | | | | | | | quadrant | | | | | | | pain | | | | | | | Procedures | | | | | | | HOSPITALIST PROGRAM DIRECTOR OFFICE | | | | | | [...] (Primary Dx); | | | | [address] [place], [place] | [place] [address] | Irritable bowel | | | | [address] | [phone] | syndrome with | | | | [phone] | | diarrhea | +--------+---------+ + + [...] the contac t person at [facility] at to organize labs between patient and [facility]. Patient will go to [facility] to have Celiac drawn today. Spoke with Tia at [facility] this morning 01/23/19; advised we saw patient in clinic yesterday and will need time sensitive labs drawn; however, patient advised she would need assistance by someone at [facility] to assist in getting those labs to [facility]; rec ommended this be performed next week; will fax labs to [facility] today; Tia will advise Natalya bowens who is the individual in charge of patient cares at [facility]. Will follow up next week to ensure all parties are on board with obtaining labs. aing, Jalil Wilburn MD - 01/22/2019 3:00 PM PDTFor matting of this note might be different from the original. Outpatient Gastroenterology Consult Note Date of Office Visit: 01/23/19 Referring Provider: Lyudmila Child NP [address] [place], [place] [address] Providing Physician: Jalil Jane MD. Chief Complaint: [...] 11/18/18 and US abdomen , done at [facility]'s Assessment and Plan This is a 18 year old F with depression and DM1, who presents for diarrhea with abdominal p ain. Her symptoms are typical for IBS-D per [place] criteria. She lacks any alarm symptoms for [...] 3 months (around 04/24/2019). CC: Lyudmila Child, HOSPITALIST PROGRAM DIRECTOR [address] [facility] [address] Lyudmila Child, [id number] [place] [address] Portions of this chart may have been created with [employer] voice recognition software. Occasi onal wrong-word or [...] [id number], | REFERENCE LAB | | [place], [place] [id number] Swage Tender: Samy Fofana MD, Phone: | BLAYNE VICTORIA | | [phone] | | + + + + + + + + | Performing | Address | City/State/Zipcode | Phone Number | | Organization | | | | + + + + + | [facility] | [address] | [place] [address] | [phone] | | [facility] | [address] | | | + + + + + documented in this encounter Visit Diagnoses + + | Diagnosis | + + | Diarrhea, unspecified type - Primary | + + | Irritable bowel syndrome with diarrhea Irritable bowel syndrome | + + documented in this encounter
--- OUTSIDE RECORDS SUMMARY | ~2019-08-05 | XMS | Encounter Summary ---
Demographics + + + | Address | [address] | | | [place] [address] | + + + | Home Phone | | + + + | Preferred Language | Unknown | + + + | Marital Status | Single | + + + | Sikhism Affiliation | Unknown | + + + | Race | Unknown | + + + | Ethnic Group | Unknown | + + + Author + + + | Author | [facility] | | | and Paulana | + + + | Organization | [facility] | | | [...] Providers + +------+ + | Care Inspector Water Pollution Control Name | Role | Phone | + +------+ + | Lyudmila Child PUFF IRON OPERATOR | PCP | | + +------+ [...] | | Gastro-esoph | [address] | ELECTRONIC TEST TECHNICIAN [address] | | | | | ageal reflux | [address] | [place], [place] | | | | | disease | [place], | [address] [place] | | | | | without | [place] [address] | [place] | | | | | esophagitis | Phone: | [phone] Phone: | | | | | Diarrhea, | [phone] | [phone] | | | | | unspecified | Fax: | Fax: | | | | | Nausea | [phone] | [phone] | | | | | Right upper | | | | | | | quadrant | | | | | | | pain | | | | | | | Procedures | | | | | | | PUFF IRON OPERATOR OFFICE | | | | | | | VISIT | | | +--------+--------+ + + + + Encounter Details +--------+---------+ + + + | Date | Type | Department | Care Team | Description | +--------+---------+ + + + | 04/28/ | Office | [facility] | Jalil Jane | Diarrhea, | | 2019 | Visit | GASTROENTEROLOGY | MD Cosmo [address] | unspecified type | | | | [address] | [address] [place] | (Primary Dx); | | | | [address] [place], [place] | [place] [address] | Gastroesophageal | | | | [address] | [phone] | reflux disease, | | | | [phone] | | esophagitis presence | | | [...] to improve. CC: Lyudmila Child, RENAN [address] [place] [address] Portions of this chart may have been created with [employer] voice recognition software. Occasi onal wrong-word or [...]
--- OUTSIDE RECORDS SUMMARY | ~2019-08-05 | XMS | Encounter Summary ---
Demographics + + + | Address | [address] | | | [place] [address] | + + + | Home Phone | | + + + | Preferred Language | Unknown | + + + | Marital Status | Single | + + + | Samaritan Affiliation | Unknown | + + + | Race | Unknown | + + + | Ethnic Group | Unknown | + + + Author + + + | Author | [facility] | | | and Paulana | + + + | Organization | [facility] | [...] Team Providers + +------+ + | Care Hydropulper Name | Role | Phone | + [...] + | 02/04/ | Telephone | [facility] | Jalil Jane | Medication Orders | | 2019 | | GASTROENTEROLOGY | MD Cosmo [address] | | | | | [address] | [address] [place] | | | | | [address] [place], [place] | [place] [address] | | | | | [address] | [phone] | | | | | [phone] | | | +--------+ + + + [...]
--- OUTSIDE RECORDS SUMMARY | ~2019-08-05 | XMS | Clinical Summary ---
Demographics + + + | Address | [address] | | | [place] [address] | + + + | Home Phone | | + + + | Preferred Language | Unknown | + + + | Marital Status | Single | + + + | Spiritism Affiliation | Unknown | + + + | Race | Unknown | + + + | Ethnic Group | Unknown | + + + Author + + + | Author | [facility] | | | and Paulana | + + + | Organization | [facility] | | | and Paulana [...] Team Providers + +------+ + | Care Senior Materials Planner Name | Role | Phone | + +------+ + | Lyudmila Child NURSING HOME MANAGER | PCP | | + +------+ + [...] + + + | Overview: Problem List Jack Winder | + + + + + | [...] | [employer] | [facility] | [id number] | 04/28/20 | [phone] | | Medica [...] Flor | marcelo/Doc | | 2001 | [phone] | [place] [address] | | | leilani | | | 8 (Home) | | + +--------+ +--------+ + + Advance Directives + + + + + | Type | Date Recorded | Patient | Explanation | | | | Extrusion Die Template Maker | | + + + + + | Power of | | | | | Orientor | | | | + + + + + | Advance | | | | | Directive | | | | + + + + +
--- OUTSIDE RECORDS SUMMARY | ~2019-08-05 | XMS | Encounter Summary ---
Demographics + + + | Address | [address] | | | [place] [address] | + + + | Home Phone | | + + + | Preferred Language | Unknown | + + + | Marital Status | Single | + + + | Muslim Affiliation | Unknown | + + + | Race | Unknown | + + + | Ethnic Group | Unknown | + + + Author + + + | Author | [facility] | | | and Paulana | + + + | Organization | [facility] | | [...] Team Providers + +------+ + | Care Exchange Mechanic Name | Role | Phone | + +------+ + | Lyudmila Child MUD JACK NOZZLE WORKER | PCP | | + +------+ [...] | | Gastro-esoph | [address] | T[address] CUTTER [address] | | | | | ageal reflux | [address] | [place], [place] | | | | | disease | [place], | [address] [place] | | | | | without | [place] [address] | [place] | | | | | esophagitis | Phone: | [address] Phone: | | | | | Diarrhea, | [phone] | [phone] | | | | | unspecified | Fax: | Fax: | | | | | Nausea | [phone] | [phone] | | | | | Right upper | | | | | | | quadrant | | | | | | | pain | | | | | | | Procedures | | | | | | | MUD JACK NOZZLE WORKER OFFICE | | | | | | | VISIT | | | +--------+--------+ + + + + Encounter Details +--------+---------+ + + + | Date | Type | Department | Care Team | Description | +--------+---------+ + + + | 04/28/ | Office | [facility] | Jalil Jane | Diarrhea, | | 2019 | Visit | GASTROENTEROLOGY | MD Cosmo [address] | unspecified type | | | | [address] | [address] [place] | (Primary Dx); | | | | [address] [place], [place] | [place] [address] | Gastroesophageal | | | | [address] | [phone] | reflux disease, | | | | [phone] | | esophagitis presence | | | [...] to improve. CC: Lyudmila Child, RENAN [address] [facility] [place] [address] Portions of this chart may have been created with [employer] voice recognition software. Occasi onal wrong-word or [...]
--- OUTSIDE RECORDS SUMMARY | ~2019-08-05 | XMS | Clinical Summary ---
Demographics + + + | Address | [address] | | | [place] [address] | + + + | Home Phone [...] + | Author | [facility] | | | and Paulana | + + + | Organization | [facility] | | | and [...] Team Providers + +------+ + | Care Engineering Administrator Name | Role | Phone | + +------+ + | Lyudmila Child TOWER EQUIPMENT REPAIRER | PCP | | + +------+ + [...] + + + | Overview: Problem List Performance Reporter | + + + + + | [...] | [employer] | MODA | [id number] | 04/28/20 | [phone] | | Medica [...] Flor | marcelo/Doc | | 2001 | [phone] | [place] [address] | | | [place] | | | 8 (Home) | | + +--------+ +--------+ + + Advance Directives + + + + + | Type | Date Recorded | Patient | Explanation | | | | Tc Operator | | + + + + + | Power of | | | | | Editor House Organ | | | | + + + + + | Advance | | | | | Directive | | | | + + + + +
[~2019-08-05 00:45] MED LIST changes: +[UNRECOGNIZED DRUG - OTHER] XX
--- OUTSIDE RECORDS SUMMARY | 2019-08-05 00:48 | XMS ---
PreManage Notification: FAUSTINO JIMENEZ Security Parts Department Manager Events No recent Security Events currently on file CRITERIA MET - 6 ED Visits in 6 Months - [facility] - Has Care Guidelines - [facility] - 2 Visits in 30 Days CARE PROVIDERS Bayron Sign Language Teacher/Glue Clamp Operator [facility] PHONE: [phone] FATOU [facility] 01/26/2019-[facility] PRIMARY CARE PHONE: [phone] NICKO YANCEY Nurse Practitioner: Women's Health 03/31/2018-Current PHONE: [phone] YAW SAMANIEGO Internal Medicine: Endocrinology, Diabetes 05/13/2018-Current \T\ Metabolism PHONE: [phone] NICKO YANCEY Primary Care Current PHONE: Unknown [facility] Primary Care 01/26/2019-[facility] PRIMARY CARE FATOU PHONE: [phone] RIA NEFF Primary Care Current PHONE: Unknown [facility] Primary Care 09/26/2017-Jose RADFORD PHONE: [phone] [facility] Primary Care Current PHONE: Unknown RIA NEFF Primary Care Current PHONE: Unknown ELIZABETH DURAND Primary [facility] PHONE: Unknown [facility] Case or Manager Mobility Current [facility] PHONE: [phone] [facility] [place] Current PHONE: [phone] SUE MARTINEZ Primary Care 11/20/2016-Current PHONE: [phone] Guidelines Source: [facility] Guidelines Date: 05/13/2018 Care Coordination: PATIENT LIVES AT [facility] [facility] [employer].\T\nbsp; THEY HAVE STANDING ORDERS FOR TREATMENT OF HER DIABETES THROUGH HER SOLAR SALES REPRESENTATIVE AND ASSESSOR DR YAW SAMANIEGO MD, [facility] [phone] .\T\nbsp; SEE ATTACHED COPY OF STANDING ORDERS. Additional care guidelines exist for the following facilities: [facility] ( 06/05/2019 ) [place] [address] ( 03/02/2019 ) Care History Medical/Surgical 07/29/2018 [facility] PATIENT HAS STANDING ORDERS AT [facility] [employer] [facility]. FROM SOLAR SALES REPRESENTATIVE AND ASSESSOR (SEE ATTACHMENTS) YAW SAMANIEGO (PHONE/[phone])(FAX/) .\T\nbsp; STANDING ORDERS FOR BLOOD SUGAR CHECKS, TREATMENT OF HYPGLYCEMIA AND HYPERGLYCEMIA INCLUDING URINE DIP FOR KETONES. TREATMENT FOR BLOOD SUGARS LESS THAN 80MG/DL AND FOR BLOOD SUGARS OVER 500MG/DL INCLUDED IN TREATMENT. 04/22/2018 [facility] - PATIENT RESCHEDULED APT FOR ED FOLLOW UP WITH PCP NICKO YANCEY ON 04/18/18 NEXT PCP APT IS ON 04/29/18 FOR ED FOLLOW UP. - PLEASE REFER PATIENT TO PCP FOR FOLLOW UP CARE FOR ANY NON EMERGENT MEDICAL NEEDS. 03/03/2018 [facility] - CHW contacted patient discussed ED utilization and the amount of ED visits that will start case management more involvement. - Patient stated she understood and will be utilizing her PCP going forward. - Patient stated she will make an apt with her PCP on 03/04/18. Behavioral 11/29/2016 [place] [address] Client attends [phone] Biogenic Reagents therapist Prisca Paris [phone] [email or web address] Social 11/29/2016 [place] [address] Client has Family [facility] Glue Clamp Operator Elisha Ward [phone]. EFela VISIT COUNT (12 MO.) 9 [facility] TOTAL 9 NOTE: Visits indicate total known visits. ED/C VISIT TRACKING (12 MO.) 08/05/2019 00:46 [facility] [place] TYPE: Emergency COMPLAINT: - HIGH BLOOD SUGAR 07/16/2019 11:21 [facility] [place] TYPE: Emergency COMPLAINT: - BLOOD SUGAR PROBLEM 06/19/2019 15:13 [facility] [place] TYPE: Emergency COMPLAINT: - DIABETIC PROBLEM DIAGNOSES: - Radiographic dye allergy status - Allergy status to ot drug/meds/biol subst status - 1 Type 1 diabetes mellitus without complications - Other superintendent terminal (current) drug therapy - superintendent terminal (current) use of insulin - Anxiety disorder, unspecified 06/01/2019 14:56 [facility] [place] TYPE: Emergency COMPLAINT: - BLOOD SUGAR PROBLEM 04/23/2019 17:53 [place] TYPE: Emergency COMPLAINT: - ABDOMINAL PAIN/VOMITING DIAGNOSES: - 1 Type 1 diabetes mellitus without complications - Anxiety disorder, unspecified - Nausea with vomiting, unspecified - Radiographic dye allergy status - Other custodial (current) drug therapy - Noninfective gastroenteritis and colitis, unspecified 03/23/2019 17:20 ALEKS Burrows OmarAlexys Am[place] TYPE: Emergency COMPLAINT: - DIABETIC ISSUE, BLOOD SUGAR PROBLEM 03/22/2019 15:15 [facility] Barr [place] TYPE: Emergency COMPLAINT: - POSS BLOOD SUGAR ISSUES DIAGNOSES: - Anxiety disorder, unspecified - Upper abdominal pain, unspecified - 1 Type 1 diabetes mellitus with ketoacidosis without coma - Other superintendent terminal (current) drug therapy 11/06/2018 18:58 ALEKS Burrows Omar[place]ys Am[place] TYPE: Emergency COMPLAINT: - R ABD PAIN/CONSTIPATION DIAGNOSES: - Anxiety disorder, unspecified - Epigastric pain - Other custodial (current) drug therapy - Peptic ulc, site unsp, unsp as ac or chr, w/o hemor or perf - superintendent terminal (current) use of oral hypoglycemic drugs - 1 Type 1 diabetes mellitus without complications 10/21/2018 14:14 A[facility] Barr [place] TYPE: Emergency COMPLAINT: - R FLANK PAIN,NON INJURY DIAGNOSES: - Anxiety disorder, unspecified - Gastritis, unspecified, without bleeding - 1 Type 1 diabetes mellitus without complications - FCI (current) use of insulin - Unspecified abdominal pain - Other custodial (current) drug therapy INPATIENT VISIT TRACKING (12 MO.) 07/16/2019 11:22 [facility] Barr [place] TYPE: Observation COMPLAINT: - DKA DIAGNOSES: - Allergy status to oth drug/meds/biol subst status - Unspecified mood [affective] disorder - 1 Type 1 diabetes mellitus with ketoacidosis without coma - Other custodial (current) drug therapy - Presence of insulin pump (external) (internal) - Radiographic dye allergy status 06/01/2019 14:57 ALEKS Barr [place] TYPE: Observation COMPLAINT: - DKA DIAGNOSES: - Allergy status to oth drug/meds/biol subst status - Other custodial (current) drug therapy - Insect bite (nonvenomous), [...] insulin - Gastro-esophageal reflux disease without esophagitis [email or web address]
[2019-08-05] MEDS ORDERED: DEXCOM G61 EACH MC (01:02)
== END 2019-08-05 05:09 | disposition home or self-care (01) ==
LOC: ED 00:45
DX: E10.65 Type 1 diabetes mellitus with hyperglycemia (principal); F41.9 Anxiety disorder, unspecified; Z88.8 Allergy status to other drugs, medicaments and biological substances; Z91.041 Radiographic dye allergy status; Z79.899 Other long term (current) drug therapy
CPT/HCPCS: 80053; 81001; 82010; 82800; 84703; 85025; 96361; 96374; 99284-25; J1815; J7030

== ENCOUNTER 2019-09-01 04:35 | Emergency (ER) | payer OTHER ==
[~2019-09-01] VITALS: Ht 167.6 cm; Wt 93.0 kg
--- OUTSIDE RECORDS SUMMARY | ~2019-09-01 | XMS | Encounter Summary ---
Demographics + + + | Address | [address] | | | [place] [address] | + + + | Home Phone [...] Author | [facility] | | | and Paulana | + + + | Organization | [facility] | | | and [...] Team Providers + +------+ + | Care Personnel Recruiter Name | Role | Phone | + [...] | 02/04/ | Telephone | [facility] | Jalil Jane | Medication Orders | | 2019 | | GASTROENTEROLOGY | MD Cosmo [address] | | | | | [address] | [address] [place] | | | | | [address] [place], [place] | [place] [address] | | | | | [address] | [phone] | | | | | [phone] | | | +--------+ + + + [...]
--- OUTSIDE RECORDS SUMMARY | ~2019-09-01 | XMS | Encounter Summary ---
Demographics + + + | Address | [address] | | | [place] [address] | + + + | Home Phone | | + + + | Preferred Language | Unknown | + + + | Marital Status | Single | + + + | Gnosticism Affiliation | Unknown | + + + | Race | Unknown | + + + | Ethnic Group | Unknown | + + + Author + + + | Author | [facility] | | | and Paulana | + + + | Organization | [facility] | | [...] Team Providers + +------+ + | Care Electronic Prepress Operator Name | Role | Phone | + +------+ + | Lyudmila Child CEMETERY WARDEN | PCP | | + +------+ + [...] | | Gastro-esoph | [address] | RIVET SORTER [address] | | | | | ageal reflux | [address] | [place], [place] | | | | | disease | [place], | [address] [place] | | | | | without | [place] [address] | [place] | | | | | esophagitis | Phone: | [phone] Phone: | | | | | Diarrhea, | [phone] | [phone] | | | | | unspecified | Fax: | Fax: | | | | | Nausea | [phone] | [phone] | | | | | Right upper | | | | | | | quadrant | | | | | | | pain | | | | | | | Procedures | | | | | | | CEMETERY WARDEN OFFICE | | | | | | | VISIT | | | +--------+--------+ + + + + Encounter Details +--------+---------+ + + + | Date | Type | Department | Care Team | Description | +--------+---------+ + + + | 01/22/ | Office | [facility] | Jalil Jane | Diarrhea, | | 2018 | Visit | GASTROENTEROLOGY | MD Cosmo [address] | unspecified type | | | | [address] | [address] [place] | (Primary Dx); | | | | [address] [place], [place] | [place] [address] | Irritable bowel | | | | [address] | [phone] | syndrome with | | | | [phone] | | diarrhea | +--------+---------+ + + [...] Temple[place] is the contac t person at [facility] at to organize labs between patient and [facility] Patient will go to [facility] to have Celiac drawn today. Spoke with Tia at [facility] this morning 01/23/19; advised we saw patient in clinic yesterday and will need time sensitive labs drawn; however, patient advised she would need assistance by someone at [facility] to assist in getting those labs to [facility]; rec ommended this be performed next week; will fax labs to [facility] today; Tia will advise Natalya bowens who is the individual in charge of patient cares at [facility]. Will follow up next week to ensure all parties are on board with obtaining labs. aing, Jalil Wilburn MD - 01/22/2019 3:00 PM PDTFor matting of this note might be different from the original. Outpatient Gastroenterology Consult Note Date of Office Visit: 01/23/19 Referring Provider: Lyudmila Child NP [address] [place], [place] [address] Providing Physician: Jalil Jane MD. Chief Complaint: [...] 11/18/18 and US abdomen , done at [facility]'s Assessment and Plan This is a 18 year old F with depression and DM1, who presents for diarrhea with abdominal p ain. Her symptoms are typical for IBS-D per Van Meter criteria. She lacks any alarm symptoms for [...] 3 months (around 04/24/2019). CC: Lyudmila Child, CEMETERY WARDEN [address] [place] [address] Lyudmila Child, [id number] [place] [place] [address] Portions of this chart may have been created with [employer] voice recognition software. Occasi onal wrong-word or [...] [id number], | REFERENCE LAB | | [place], [place] [id number] Crate Opener: Samy Fofana MD, Phone: | [place] | | [phone] | | + + + + + + + + | Performing | Address | City/State/Zipcode | Phone Number | | Organization | | | | + + + + + | [facility] | [address] | [place] [address] | [phone] | | [facility] | [address] | | | + + + + + documented in this encounter Visit Diagnoses + + | Diagnosis | + + | Diarrhea, unspecified type - Primary | + + | Irritable bowel syndrome with diarrhea Irritable bowel syndrome | + + documented in this encounter
--- OUTSIDE RECORDS SUMMARY | ~2019-09-01 | XMS | Encounter Summary ---
Demographics + + + | Address | [address] | | | [place] [address] | + + + | Home Phone | | + + + | Preferred Language | Unknown | + + + | Marital Status | Single | + + + | Taoist Affiliation | Unknown | + + + | Race | Unknown | + + + | Ethnic Group | Unknown | + + + Author + + + | Author | [facility] | | | and Paulana | + + + | Organization | [facility] | | | and Paulana | [...] Team Providers + +------+ + | Care Feeder Switchboard Operator Name | Role | Phone | + +------+ + | Lyudmila Child FROG FARMER | PCP | | + +------+ + [...] | | Gastro-esoph | [address] | RN RECRUITMENT [address] | | | | | ageal reflux | [address] | [place], [place] | | | | | disease | [place], | [address] [place] | | | | | without | [place] [address] | [place] | | | | | esophagitis | Phone: | [phone] Phone: | | | | | Diarrhea, | [phone] | [phone] | | | | | unspecified | Fax: | Fax: | | | | | Nausea | [phone] | [phone] | | | | | Right upper | | | | | | | quadrant | | | | | | | pain | | | | | | | Procedures | | | | | | | FROG FARMER OFFICE | | | | | | | VISIT | | | +--------+--------+ + + + + Encounter Details +--------+---------+ + + + | Date | Type | Department | Care Team | Description | +--------+---------+ + + + | 01/22/ | Office | [facility] | Jalil Jane | Diarrhea, | | 2018 | Visit | GASTROENTEROLOGY | MD Cosmo [address] | unspecified type | | | | [address] | [address] [place] | (Primary Dx); | | | | [address] [employer], [place] | [place] [address] | Irritable bowel | | | | [address] | [phone] | syndrome with | | | | [phone] | | diarrhea | +--------+---------+ + + [...] Temple[place] is the contac t person at [facility] at to organize labs between patient and [facility]. Patient will go to [facility] to have Celiac drawn today. Spoke with Tia at [facility] this morning 01/23/19; advised we saw patient in clinic yesterday and will need time sensitive labs drawn; however, patient advised she would need assistance by someone at [facility] to assist in getting those labs to [facility]; rec ommended this be performed next week; will fax labs to [facility] today; Tia will advise Natalya bowens who is the individual in charge of patient cares at [facility]. Will follow up next week to ensure all parties are on board with obtaining labs. aing, Jalil Wilburn MD - 01/22/2019 3:00 PM PDTFor matting of this note might be different from the original. Outpatient Gastroenterology Consult Note Date of Office Visit: 01/23/19 Referring Provider: Lyudmila Child NP [address] [place], [place] [address] Providing Physician: Jalil Jane MD. Chief Complaint: [...] 11/18/18 and US abdomen , done at [facility]'s Assessment and Plan This is a 18 year old F with depression and DM1, who presents for diarrhea with abdominal p ain. Her symptoms are typical for IBS-D per Berry criteria. She lacks any alarm symptoms for [...] 3 months (around 04/24/2019). CC: Lyudmila Child, FROG FARMER [address] [place] [address] Lyudmila Child, [id number] [place] [address] Portions of this chart may have been created with TouchBist[employer] voice recognition software. Occasi onal wrong-word or [...] [id number], | REFERENCE LAB | | [place], [place] [id number] Traffic Coordinator: Samy Fofana MD, Phone: | [place] | | [phone] | | + + + + + + + + | Performing | Address | City/State/Zipcode | Phone Number | | Organization | | | | + + + + + | [facility] | [address] | [place] [address] | [phone] | | [facility] | [address] | | | + + + + + documented in this encounter Visit Diagnoses + + | Diagnosis | + + | Diarrhea, unspecified type - Primary | + + | Irritable bowel syndrome with diarrhea Irritable bowel syndrome | + + documented in this encounter
--- OUTSIDE RECORDS SUMMARY | ~2019-09-01 | XMS | Clinical Summary ---
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
--- OUTSIDE RECORDS SUMMARY | ~2019-09-01 | XMS | Encounter Summary ---
Demographics + + + | Address | [address] | | | [place] [address] | + + + | Home Phone | | + + + | Preferred Language | Unknown | + + + | Marital Status | Single | + + + | Caodaism Affiliation | Unknown | + + + | Race | Unknown | + + + | Ethnic Group | Unknown | + + + Author + + + | Author | [facility] | | | and Paulana | + + + | Organization | [facility] | | | and Paulana [...] Team Providers + +------+ + | Care Welt Sole Layer Name | Role | Phone | + [...] [place] | | | | | [address] [place], [place] | [place] [address] | | | | | [address] | [phone] | | | | | [phone] | | | +--------+ + + + [...]
--- OUTSIDE RECORDS SUMMARY | ~2019-09-01 | XMS | Encounter Summary ---
Demographics + + + | Address | [address] | | | [place] [address] | + + + | Home Phone [...] + | Author | [facility] | | | and Paulana | + + + | Organization | [facility] [...] Team Providers + +------+ + | Care Molder Closed Molds Name | Role | Phone | + [...] | | | [address] [facility] | Enid Mccord. | | | | | [address] [place] [address] | [place] [address] | | | | | [address] | | | | | | [phone] | | | +--------+ + + + [...]
--- OUTSIDE RECORDS SUMMARY | ~2019-09-01 | XMS | Encounter Summary ---
Demographics + + + | Address | [address] | | | [place] [address] | + + + | Home Phone | | + + + | Preferred Language | Unknown | + + + | Marital Status | Single | + + + | Adventist Affiliation | Unknown | + + + | Race | Unknown | + + + | Ethnic Group | Unknown | + + + Author + + + | Author | [facility] | | | and Paulana | + + + | Organization | [facility] | | | and [...] Team Providers + +------+ + | Care Insurance Examining Clerk Name | Role | Phone | + +------+ + | Lyudmila Child MATE FIRST | PCP | | + +------+ + [...] | | Gastro-esoph | [address] | AGILE QA TESTER [address] | | | | | ageal reflux | [address] | [place], [place] | | | | | disease | [place], | [address] [place] | | | | | without | [place] [address] | [place] | | | | | esophagitis | Phone: | [phone] Phone: | | | | | Diarrhea, | [phone] | [phone] | | | | | unspecified | Fax: | Fax: | | | | | Nausea | [phone] | [phone] | | | | | Right upper | | | | | | | quadrant | | | | | | | pain | | | | | | | Procedures | | | | | | | MATE FIRST OFFICE | | | | | | | VISIT | | | +--------+--------+ + + + + Encounter Details +--------+---------+ + + + | Date | Type | Department | Care Team | Description | +--------+---------+ + + + | 04/28/ | Office | [facility] | Jalil Jane | Diarrhea, | | 2019 | Visit | GASTROENTEROLOGY | MD Cosmo [address] | unspecified type | | | | [address] | [address] [place] | (Primary Dx); | | | | [address] [place], [place] | [place] [address] | Gastroesophageal | | | | [address] | [phone] | reflux disease, | | | | [phone] | | esophagitis presence | | | [...] to improve. CC: Lyudmila Child, RENAN [address] [facility] [place] [address] Portions of this chart may have been created with [employer] voice recognition software. Occasi onal wrong-word or [...]
--- OUTSIDE RECORDS SUMMARY | ~2019-09-01 | XMS | Clinical Summary ---
Demographics + + + | Address | [address] | | | [place] [address] | + + + | Home Phone | | + + + | Preferred Language | Unknown | + + + | Marital Status | Single | + + + | Gnosticist Affiliation | Unknown | + + + | Race | Unknown | + + + | Ethnic Group | Unknown | + + + Author + + + | Author | [facility] | | | and Paulana | + + + | Organization | 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
--- OUTSIDE RECORDS SUMMARY | ~2019-09-01 | XMS | Encounter Summary ---
Demographics + + + | Address | [address] | | | [place] [address] | + + + | Home Phone | | + + + | Preferred Language | Unknown | + + + | Marital Status | Single | + + + | Jainism Affiliation | Unknown | + + + | Race | Unknown | + + + | Ethnic Group | Unknown | + + + Author + + + | Author | [facility] | | | and Paulana | + + + | Organization | [facility] | | | and [...] Team Providers + +------+ + | Care Airport Operations Duty Manager Name | Role | Phone | + +------+ + | Lyudmila Child ROUTER SETTER | PCP | | + +------+ + [...] | | Gastro-esoph | [address] | MARKETING OPERATIONS SPECIALIST [address] | | | | | ageal reflux | [address] | [place], [place] | | | | | disease | [place], | [address] [place] | | | | | without | [place] [address] | [place] | | | | | esophagitis | Phone: | [phone] Phone: | | | | | Diarrhea, | [phone] | [phone] | | | | | unspecified | Fax: | Fax: | | | | | Nausea | [phone] | [phone] | | | | | Right upper | | | | | | | quadrant | | | | | | | pain | | | | | | | Procedures | | | | | | | ROUTER SETTER OFFICE | | | | | | | VISIT | | | +--------+--------+ + + + + Encounter Details +--------+---------+ + + + | Date | Type | Department | Care Team | Description | +--------+---------+ + + + | 04/28/ | Office | [facility] | Jalil Jane | Diarrhea, | | 2019 | Visit | GASTROENTEROLOGY | MD Cosmo [address] | unspecified type | | | | [address] [place] | [address] [place] | (Primary Dx); | | | | [address] [place], [place] | [place] [address] | Gastroesophageal | | | | [address] | [phone] | reflux disease, | | | | [phone] | | esophagitis presence | | | [...] history: She is no longer in the detention, and is living with her boyfriend. Diarrhea [...] fail to improve. CC: Lyudmila Child, RENAN [address] [place] [address] Portions of this chart may have been created with [employer] voice recognition software. Occasi onal wrong-word or [...]
--- OUTSIDE RECORDS SUMMARY | ~2019-09-01 | XMS | Encounter Summary ---
Demographics + + + | Address | [address] | | | [place] [address] | + + + | Home Phone | | + + + | Preferred Language | Unknown | + + + | Marital Status | Single | + + + | Taoist Affiliation | Unknown | + + + | Race | Unknown | + + + | Ethnic Group | Unknown | + + + Author + + + | Author | [facility] | | | and Paulana | + + + | Organization | [facility] | [...] Team Providers + +------+ + | Care Millwork Estimator Name | Role | Phone | + [...] [place] | | | | | [address] [place], [place] | [place] [address] | | | | | [address] | [phone] | | | | | [phone] | | | +--------+ + + + [...]
--- OUTSIDE RECORDS SUMMARY | ~2019-09-01 | XMS | Encounter Summary ---
Demographics + + + | Address | [address] | | | [place] [address] | + + + | Home Phone [...] Author | [facility] | | | and Paulana | + + + | Organization | [facility] | | | and Paulana [...] Team Providers + +------+ + | Care Ampoule Filler Name | Role | Phone | + [...] [place] | | | | | [address] [place], [place] | [place] [address] | | | | | [address] | [phone] | | | | | [phone] | | | +--------+ + + + [...]
--- OUTSIDE RECORDS SUMMARY | ~2019-09-01 | XMS | Encounter Summary ---
Demographics + + + | Address | [address] | | | [place] [address] | + + + | Home Phone [...] + | Author | [facility] | | | and Paulana | + + + | Organization | [facility] | | | and Paulana [...] Team Providers + +------+ + | Care Mechanical Laboratory Technician Name | Role | Phone | [...] | | | [address] [facility] | [place]. | | | | | [address] [place] [address] | [place] [address] | | | | | [address] | | | | | | [phone] | | | +--------+ + + + [...]
[~2019-09-01 04:35] MED LIST changes: +DEXCOM G61 EACH MC
--- OUTSIDE RECORDS SUMMARY | 2019-09-01 04:38 | XMS ---
PreManage Notification: FAUSTINO JIMENEZ Security Social Service Manager Events No recent Security Events currently on file CRITERIA MET - 6 ED Visits in 6 Months - [facility] - Has Care Guidelines - [facility] - 2 Visits in 30 Days CARE PROVIDERS Bayron [employer] Identity Management Consultant/Fountain Supervisor [facility] PHONE: [phone] FATOU [facility] 01/26/2019-[facility] PRIMARY CARE PHONE: [phone] NICKO YANCEY Nurse Practitioner: Women's Health 03/31/2018-Current PHONE: [phone] YAW SAMANIEGO Internal Medicine: Endocrinology, Diabetes 05/13/2018-Current \T\ Metabolism PHONE: [phone] NICKO YANCEY Primary Care Current PHONE: Unknown [facility] Primary Care 01/26/2019-[facility] PRIMARY CARE FATOU PHONE: [phone] RIA NEFF Primary Care Current PHONE: Unknown [facility] Primary Care 09/26/2017-Jose RADFORD PHONE: [phone] [facility] Primary Care Current PHONE: Unknown RIA NEFF Primary [facility] Current PHONE: Unknown [facility] Primary Care [facility] PHONE: Unknown ELIZABETH LIVE [facility] Primary [facility] PHONE: Unknown [facility] Case or Content Production Specialist Current [facility] PHONE: [phone] [facility] [place] Current PHONE: [phone] SUE MARTINEZ Primary Care 11/20/2016-Current PHONE: [phone] Guidelines Source: [facility] Guidelines Date: 05/13/2018 Care Coordination: PATIENT LIVES AT [facility] Rewarding Return [facility].\T\nbsp; THEY HAVE STANDING ORDERS FOR TREATMENT OF HER DIABETES THROUGH HER CLIENT EVALUATOR DR YAW SAMANIEGO MD, [facility] [phone] .\T\nbsp; SEE ATTACHED COPY OF STANDING ORDERS. Additional care guidelines exist for the following facilities: [facility] ( 06/05/2019 ) [place] [address] ( 03/02/2019 ) Care History Social 11/29/2016 [place] [address] Client has Family Care Fountain Supervisor Elisha Ward [phone]. Medical/Surgical 08/05/2019 [facility] Patient is no showing for follow up with Dr. Kellee Purdy, and diabetes education at [facility]. 07/29/2018 [facility] PATIENT HAS STANDING ORDERS AT [facility] Rewarding Return [facility] FROM CLIENT EVALUATOR (SEE ATTACHMENTS) YAW SAMANIEGO (PHONE/[phone])(FAX/[phone]) .\T\nbsp; STANDING ORDERS FOR BLOOD SUGAR CHECKS, TREATMENT OF HYPGLYCEMIA AND HYPERGLYCEMIA INCLUDING URINE DIP FOR KETONES. TREATMENT FOR BLOOD SUGARS LESS THAN 80MG/DL AND FOR BLOOD SUGARS OVER 500MG/DL INCLUDED IN TREATMENT. 04/22/2018 [facility] - PATIENT RESCHEDULED APT FOR ED FOLLOW UP WITH PCP NICKO YANCEY ON 04/18/18 NEXT PCP APT IS ON 04/29/18 FOR ED FOLLOW UP. - PLEASE REFER PATIENT TO PCP FOR FOLLOW UP CARE FOR ANY NON EMERGENT MEDICAL NEEDS. Behavioral 11/29/2016 [place] [address] Client attends [phone] [facility] therapist Prisca Paris [phone] [email or web address] EAlexysD. VISIT COUNT (12 MO.) 10 [facility] TOTAL 10 NOTE: Visits indicate total known visits. ED/UCC VISIT TRACKING (12 MO.) 09/01/2019 04:36 [facility] [place] TYPE: Emergency COMPLAINT: - HIGH BS 08/05/2019 00:46 [facility] [place] TYPE: Emergency COMPLAINT: - HIGH BLOOD SUGAR DIAGNOSES: - Other watermelon inspector (current) drug therapy - 1 Type 1 diabetes mellitus with hyperglycemia - Allergy status to oth drug/meds/biol subst status - Radiographic dye allergy status - Anxiety disorder, unspecified 07/16/2019 11:21 [facility] [place] TYPE: Emergency COMPLAINT: - BLOOD SUGAR PROBLEM 06/19/2019 15:13 [facility] [place] TYPE: Emergency COMPLAINT: - DIABETIC PROBLEM DIAGNOSES: - Radiographic dye allergy status - Allergy status to oth drug/meds/biol subst status - 1 Type 1 diabetes mellitus without complications - Other watermelon inspector (current) drug therapy - exterminator helper (current) use of insulin - Anxiety disorder, unspecified 06/01/2019 14:56 [facility] [place] TYPE: Emergency COMPLAINT: - BLOOD SUGAR PROBLEM 04/23/2019 17:53 [facility] [place] TYPE: Emergency COMPLAINT: - ABDOMINAL PAIN/VOMITING DIAGNOSES: - 1 Type 1 diabetes mellitus without complications - Anxiety disorder, unspecified - Nausea with vomiting, unspecified - Radiographic dye allergy status - Other intermediate (current) drug therapy - Noninfective gastroenteritis and colitis, unspecified 03/23/2019 17:20 [facility] [place] TYPE: Emergency COMPLAINT: - DIABETIC ISSUE, BLOOD SUGAR PROBLEM 03/22/2019 15:15 [facility] [place] TYPE: Emergency COMPLAINT: - POSS BLOOD SUGAR ISSUES DIAGNOSES: - Anxiety disorder, unspecified - Upper abdominal pain, unspecified - 1 Type 1 diabetes mellitus with ketoacidosis without coma - Other intermediate (current) drug therapy 11/06/2018 18:58 [facility] [place] TYPE: Emergency COMPLAINT: - R ABD PAIN/CONSTIPATION DIAGNOSES: - Anxiety disorder, unspecified - Epigastric pain - Other intermediate (current) drug therapy - Peptic ulc, site unsp, unsp as ac or chr, w/o hemor or perf - jail (current) use of oral hypoglycemic drugs - 1 Type 1 diabetes mellitus without complications 10/21/2018 14:14 [facility] [place] TYPE: Emergency COMPLAINT: - R FLANK PAIN,NON INJURY DIAGNOSES: - Anxiety disorder, unspecified - Gastritis, unspecified, without bleeding - 1 Type 1 diabetes mellitus without complications - exterminator helper (current) use of insulin - Unspecified abdominal pain - Other intermediate (current) drug therapy INPATIENT VISIT TRACKING (12 MO.) 07/16/2019 11:22 [facility] [place] TYPE: Observation COMPLAINT: - DKA DIAGNOSES: - Allergy status to oth drug/meds/biol subst status - Unspecified mood [affective] disorder - 1 Type 1 diabetes mellitus with ketoacidosis without coma - Other watermelon inspector (current) drug therapy - Presence of insulin [...] - Radiographic dye allergy status - Other watermelon inspector (current) drug therapy - 1 Type 1 diabetes mellitus with ketoacidosis without coma - Acute pyelonephritis - Unspecified mood [affective] disorder - Acute respiratory failure with hypoxia - Sepsis due to Escherichia coli [E. coli] Sepsis du - Resistance to multiple antimicrobial drugs - exterminator helper (current) use of insulin - Gastro-esophageal reflux disease without esophagitis [email or web address]
[2019-09-01] MEDS ORDERED: DULOXETINE HCL20 MG PO (05:21)
== END 2019-09-01 07:14 | disposition home or self-care (01) ==
LOC: ED 04:35
DX: E10.65 Type 1 diabetes mellitus with hyperglycemia (principal); F41.9 Anxiety disorder, unspecified; Z88.8 Allergy status to other drugs, medicaments and biological substances; Z91.041 Radiographic dye allergy status; Z79.899 Other long term (current) drug therapy; Z79.84 Long term (current) use of oral hypoglycemic drugs
CPT/HCPCS: 80053; 81001; 82010; 82800; 83690; 84703; 85025; 96361; 96374; 96375; 99284-25; J1815; J2405; J7030

== ENCOUNTER 2019-11-23 23:13 | Emergency (ER) | payer OTHER ==
[~2019-11-23] VITALS: Ht 167.6 cm; Wt 94.5 kg
[~2019-11-23 23:13] MED LIST changes: +DULOXETINE HCL20 MG PO
[2019-11-25] MEDS ORDERED: CYMBALTA20 MG PO (23:34)
[2019-11-25] MEDS ORDERED: MINIPRESS1 MG PO (23:35)
== END 2019-11-24 02:18 | disposition home or self-care (01) ==
LOC: ED 23:13
DX: R45.851 Suicidal ideations (principal); E10.9 Type 1 diabetes mellitus without complications; F41.9 Anxiety disorder, unspecified
CPT/HCPCS: 80053; 80176; 81001; 84443; 84703; 85025; 99284; G0480

== ENCOUNTER 2019-11-25 23:02 | Emergency (ER) | payer OTHER ==
[~2019-11-25] VITALS: Ht 167.6 cm; Wt 94.5 kg
[2019-11-25] MEDS ORDERED: CYMBALTA20 MG PO (23:34)
[2019-11-25] MEDS ORDERED: MINIPRESS1 MG PO (23:35)
== END 2019-11-26 01:11 | disposition home or self-care (01) ==
LOC: ED 23:02
DX: E10.65 Type 1 diabetes mellitus with hyperglycemia (principal); B34.9 Viral infection, unspecified; F41.9 Anxiety disorder, unspecified; Z88.8 Allergy status to other drugs, medicaments and biological substances; Z79.899 Other long term (current) drug therapy
CPT/HCPCS: 80053; 81001; 82010; 82800; 84703; 85025; 96361; 96374; 99284-25; J2405; J7030

== ENCOUNTER 2019-12-03 22:15 | Emergency (ER) | payer OTHER ==
[~2019-12-03] VITALS: Ht 167.6 cm; Wt 94.5 kg
[~2019-12-03 22:15] MED LIST changes: +CYMBALTA20 MG PO
== END 2019-12-03 23:36 | disposition home or self-care (01) ==
LOC: ED 22:15
DX: E10.649 Type 1 diabetes mellitus with hypoglycemia without coma (principal); T38.3X5A Adverse effect of insulin and oral hypoglycemic [antidiabetic] drugs, initial encounter; F41.9 Anxiety disorder, unspecified
CPT/HCPCS: 80053; 81001; 82010; 82803; 84703; 85025; 99284; J7030

== ENCOUNTER 2020-01-02 16:34 | Observation (INO) | payer OTHER ==
[~2020-01-02] VITALS: Ht 167.6 cm; Wt 91.6 kg
--- OUTSIDE RECORDS SUMMARY | ~2020-01-02 | XMS | Encounter Summary ---
Demographics + + + | Address | [address] | | | [place] [address] | + + + | Home Phone | | + + + | Preferred Language | Unknown | + + + | Marital Status | Single | + + + | Confucianism Affiliation | Unknown | + + + | Race | Unknown | + + + | Ethnic Group | Unknown | + + + Author + + + | Author | [facility] | | | and Paulana | + + + | Organization | [facility] | | | and Paulana | + + + | Address | Unknown | + + + | Phone | Unavailable | + + + Support + + +---------+ + | Name | Relationship | Address | Phone | + + +---------+ + | Kamar David | ECON | Unknown | | + + +---------+ + Care Team Providers + +------+ + | Care Grout Pump Operator Name | Role | Phone | + +------+ + | Lyudmila Child NP | PCP | | + +------+ + Encounter Details +--------+ + + + + | Date | Type | Department | Care Team | Description | +--------+ + + + + | 12/23/ | Abstract | [facility] | Luann, | | | 2018 | | GASTROENTEROLOGY | MD Anita [address] | | | | | [address] [facility] | [place]. | | | | | [address] [place] | [place] [address] | | | | | [address] | | | | | | [phone] | | | +--------+ + + + + Social History + +-------+ +--------+------+ | Tobacco Use | Types | Packs/Day | Years | Date | | | | | Used | | + +-------+ +--------+------+ | Never Smoker | | | | | + +-------+ +--------+------+ + + +---------+ + | Alcohol Use | Drinks/Week | oz/Week | Comments | + + +---------+ + | Never | | | | + + +---------+ + + + + + | Alcohol Habits | Answer | Date Recorded | + + + + | How often do you have a drink containing | Never | 12/23/2018 | | alcohol? | | | + + + + | How many drinks containing alcohol do you | Not asked | | | have on a typical day when you are | | | | drinking? | | | + + + + | How often do you have six or more drinks on | Not asked | | | one occasion? | | | + + + + + + + | Sex Assigned at | Date Recorded | | | | + + + | Not on file | | + + + + + + + | Job Start Date | Occupation | Industry | + + + + | Not on file | Not on file | Not on file | + + + + + + + + | Travel History | Travel Start | Travel End | + + + + + + | No recent travel history available. | + + documented as of this encounter Last Filed Vital Signs + + + + + | Vital Sign | Reading | Time Taken | Comments | + + + + + | Blood Pressure | - | - | | + + + + + | Pulse | - | - | | + + + + + | Temperature | - | - | | + + + + + | Respiratory Rate | - | - | | + + + + + | Oxygen Saturation | - | - | | + + + + + | Inhaled Oxygen | - | - | | | Concentration | | | | + + + + + | Weight | 94.9 kg (209 lb 3.2 | 09/23/2018 10:26 AM | | | | oz) | PST | | + + + + + | Height | 162.6 cm (5' 4") | 09/23/2018 10:26 AM | | | | | PST | | + + + + + | Body Mass Index | 35.91 | 09/23/2018 10:26 AM | | | | | PST | | + + + + + documented in this encounter Plan of Treatment Not on filedocumented as of this encounter Visit Diagnoses Not on filedocumented in this encounter
--- OUTSIDE RECORDS SUMMARY | ~2020-01-02 | XMS | Clinical Summary ---
Demographics + + + | Address | [address] | | | [place] [address] | + + + | Home Phone | | + + + | Preferred Language | Unknown | + + + | Marital Status | Single | + + + | Jain Affiliation | Unknown | + + + | Race | Unknown | + + + | Ethnic Group | Unknown | + + + Author + + + | Author | [facility] | | | and Paulana | + + + | Organization | [facility] | | | and Paulana [...] Team Providers + +------+ + | Care Marketing Coordinator Name | Role | Phone | + +------+ + | Lyudmila Child USER INTERFACE DEVELOPER | PCP | | + +------+ + Allergies No Known Allergies Medications + + + +---------+------+------+-------+ | Medication | Sig | Dispensed | Refills | Star | End | Statu | | | | | | t | Date | s | | | | | | Date | | | + + + +---------+------+------+-------+ | sertraline | Take 100 mg by mouth | | 0 | | | Activ | | (ZOLOFT) 100 mg | Daily. | | | | | e | | tablet | | | | | | | + + + +---------+------+------+-------+ | albuterol | Inhale 2 puffs into | | 0 | | | Activ | | (VENTOLIN HFA) 90 | the lungs every 6 | | | | | e | | mcg/puff inhaler | hours as needed for | | | | | | | | Wheezing. | | | | | | + + + +---------+------+------+-------+ | cholecalciferol | Take 2,000 Units by | | 0 | | | Activ | | (VITAMIN D-3) 2000 | mouth Daily. | | | | | e | | units TABS | | | | | | | + + + +---------+------+------+-------+ | prazosin | Take 2 mg by mouth | | 0 | | | Activ | | (MINIPRESS) 2 MG | nightly. | | | | | e | | capsule | | | | | | | + + + +---------+------+------+-------+ | insulin glargine | Inject under the | | 0 | | | Activ | | (BASAGLAR KWIKPEN) | skin nightly. | | | | | e | | 100 units/mL | | | | | | | | injection (pen) | | | | | | | + + + +---------+------+------+-------+ | glucose 4-6 GM-MG | Take by mouth Every | | 0 | | | Activ | | CHEW | 30 minutes as | | | | | e | | | needed. | | | | | | + + + +---------+------+------+-------+ | Menthol (COUGH | Take 1 lozenge by | | 0 | | | Activ | | DROPS) 5 MG LOZG | mouth as needed. | | | | | e | + + + +---------+------+------+-------+ | glucose blood | by In Vitro route as | | 0 | | | Activ | | test strips | needed. | | | | | e | | (FREESTYLE LITE) | | | | | | | | strip | | | | | | | + + + +---------+------+------+-------+ | insulin glargine | Inject under the | | 0 | | | Activ | | (LANTUS) 100 | skin nightly. | | | | | e | | units/mL injection | | | | | | | | (vial) | | | | | | | + + + +---------+------+------+-------+ | diphenhydrAMINE | Take 25 mg by mouth | | 0 | | | Activ | | (BENADRYL) 25 mg | every 6 hours as | | | | | e | | tablet | needed for Itching. | | | | | | + + + +---------+------+------+-------+ | fexofenadine | Take 180 mg by mouth | | 0 | | | Activ | | (ARTURO) 180 mg | Daily. | | | | | e | | tablet | | | | | | | + + + +---------+------+------+-------+ | acetone, urine, | 1 strip by Does not | | 0 | | | Activ | | test (KETOSTIX) | apply route as | | | | | e | | strip | needed. | | | | | | + + + +---------+------+------+-------+ | Insulin Pen Needle | by Does not apply | | 0 | | | Activ | | (BD PEN NEEDLE ARNOLD | route. | | | | | e | | U/F) 32G X 4 MM | | | | | | | | MISC | | | | | | | + + + +---------+------+------+-------+ | Etonogestrel | Inject 68 mg under | | 0 | | | Activ | | (NEXPLANON) 68 MG | the skin once. | | | | | e | | IMPL | | | | | | | + + + +---------+------+------+-------+ | topiramate | Take 25 mg by mouth | | 0 | | | Activ | | (TOPAMAX) 25 mg | 2 times daily. | | | | | e | | tablet | | | | | | | + + + +---------+------+------+-------+ | raNITIdine | Take 150 mg by mouth | | 0 | | | Activ | | (ZANTAC) 150 mg | 2 times daily. | | | | | e | | tablet | | | | | | | + + + +---------+------+------+-------+ | loperamide | Take 1 capsule by | 120 | 3 | 05/3 | | Activ | | (IMODIUM) 2 mg | mouth 3 times daily | capsule | | 0/20 | | e | | capsuleIndications: | (before meals). max | | | 19 | | | | Irritable bowel | of 16mg/day, hold if | | | | | | | syndrome with | constipated | | | | | | | diarrhea | | | | | | | + + + +---------+------+------+-------+ | ciprofloxacin | take 1 tablet by | | 0 | 08/0 | | Activ | | (CIPRO) 500 mg | mouth twice a day | | | 3/20 | | e | | tablet | | | | 19 | | | + + + +---------+------+------+-------+ | insulin lispro | Inject 20 Units | | 0 | 02/23 | | Activ | | (HUMALOG ISMAELPEN) | under the skin 3 | | | 02/12 | | e | | 100 units/mL | times daily. 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 | | + + + | Hyponatremia | 03/08/2014 | + + + | Sinusitis | 03/08/2014 | + + + Family History + + +------+ + | Medical History | Relation | Name | Comments | + + +------+ + | No known problems | Brother | | | + + +------+ + | No known problems | Brother | | | + + +------+ + | Arthritis | Father | | | + + +------+ + | Fibromyalgia | Father | | | + + +------+ + | Suicide | Father | | | + + +------+ + | Diabetes | Paternal | | | | | Grandfath | | | | | er | | | + + +------+ + | No known problems | Sister | | | + + +------+ + + +------+ + + | Relation | Name | Status | Comments | + +------+ + + | Brother | | | | + +------+ + + | Brother | | | | + +------+ + + | Father | | | Suicide | | | | (Age | | | | | 39) | | + +------+ + + | Mother | | Alive | arthritis | + +------+ + + | Paternal Grandfather | | Alive | | + +------+ + + | Sister | | | | + +------+ + + Social History + +-------+ +--------+------+ | Tobacco Use | Types | Packs/Day | Years | Date | | | | | Used | | + +-------+ +--------+------+ | Never Smoker | | | | | + +-------+ +--------+------+ + +---+---+---+ | Smokeless Tobacco: | | | | | Never Used | | | | + +---+---+---+ + + +---------+ + | Alcohol Use [...] recent travel history available. | + + Last Filed Vital Signs + + + + + | Vital Sign | Reading | Time Taken | Comments | + + + + + | Blood Pressure | 104/76 | 04/28/2019 2:46 PM | | | | | PDT | | + + + + + | Pulse | 98 | 04/28/2019 2:46 PM | | | | | PDT | | + + + + + | Temperature | 36.8 C (98.3 F) | 04/28/2019 2:46 PM | | | | | PDT | | + + + + + | Respiratory Rate | 12 | 04/28/2019 2:46 PM | | | | | PDT | | + + + + + | Oxygen Saturation | 98% | 04/28/2019 2:46 PM | | | | | PDT | | + + + + + | Inhaled Oxygen | - | - | | | Concentration | | | | + + + + + | Weight | 87.7 kg (193 lb 5.5 | 04/28/2019 2:46 PM | | | | oz) | PDT | | + + + + + | Height | 167.6 cm (5' 6") | 04/28/2019 2:46 PM | | | | | PDT | | + + + + + | Body Mass Index | 31.21 | 04/28/2019 2:46 PM | | | | | PDT | | + + + + + Plan of Treatment + + + + + | Health Maintenance | Due Date | Last Done | Comments | + + + + + | Well Child Check | | | | | | 3 | | | + + + + + | Vaccine: | | | | | Pneumococcal 19-64 | 6 | | | | (1 of 1 - PPSV23) | | | | + + + + + | Vaccine: HPV (1 - | | | | | Female 2-dose | 1 | | | | series) | | | | + + + + + | Diabetic Eye Exam | | | | | | 8 | | | + + + + + | Diabetic Foot Exam | | | | | | 8 | | | + + + + + | Hemoglobin A1c | | | | | Screening | 8 | | | + + + + + | Microalbumin | | | | | Screening | 9 | | | + + + + + | Vaccine: Influenza | | 06/23/2018, 06/23/2018, | | | (Season Ended) | 0 | 07/09/2017, Additional history | | | | | exists | | + + + + + | Vaccine: | | 03/06/2011, 05/22/2005, | | | Dtap/Tdap/Td (7 - | 1 | 07/01/2002, Additional history | | | Td) | | exists | | + + + + + Results Not on filefrom Last 3 Months Insurance + +--------+ +--------+ +---------+--------+ | Payer | Benefi | Subscriber | Effect | Phone | Address | Type | | | t Plan | ID | aleksandr | | | | | | / | | Dates | | | | | | Group | | | | | | + +--------+ +--------+ +---------+--------+ | [employer] | [employer] | [id number] | 04/28/20 | [phone] | | Medica | | MEDICAID HMO | HEALTH | | 19-Pre | 1 | | id | | | MDCD | | sent | | | | | | [place] | | | | | | + +--------+ +--------+ +---------+--------+ + +--------+ +--------+ + + | Guarantor Name | Accoun | Relation to | Date | Phone | Billing Address | | | t Type | Patient | of | | | | | | | | | | + +--------+ +--------+ + + | Leah Muniz | Person | Self [birth year] | [address] | | [place] | marcelo/Doc | | 2001 | [phone] | [place] [address] | | | [place] | | | 8 (Home) | | + +--------+ +--------+ + + Advance Directives + + + + + | Type | Date Recorded | Patient | Explanation | | | | Educational Director | | + + + + + | Power of | | | | | Logistics Team Leader | | | | + + + + + | Advance | | | | | Directive | | | | + + + + +
--- OUTSIDE RECORDS SUMMARY | ~2020-01-02 | XMS | Encounter Summary ---
Demographics + + + | Address | [address] | | | [place] [address] | + + + | Home Phone | | + + + | Preferred Language | Unknown | + + + | Marital Status | Single | + + + | Lutheran Affiliation | Unknown | + + + | Race | Unknown | + + + | Ethnic Group | Unknown | + + + Author + + + | Author | [facility] | | | and Paulana | + + + | Organization | [facility] | | | and Paulana [...] Team Providers + +------+ + | Care Publications Editor Name | Role | Phone | + +------+ + | Lyudmila Child FACILITY MAINTENANCE WORKER | PCP | | + +------+ + [...] | | Gastro-esoph | [address] | HOME HOSPICE AIDE [address] | | | | | ageal reflux | [address] | [place], [place] | | | | | disease | [place], | [address] [place] | | | | | without | [place] [address] | [place] | | | | | esophagitis | Phone: | [phone] Phone: | | | | | Diarrhea, | [phone] | [phone] | | | | | unspecified | Fax: | Fax: | | | | | Nausea | [phone] | [phone] | | | | | Right upper | | | | | | | quadrant | | | | | | | pain | | | | | | | Procedures | | | | | | | FACILITY MAINTENANCE WORKER OFFICE | | | | | | | VISIT | | | +--------+--------+ + + + + Encounter Details +--------+---------+ + + + | Date | Type | Department | Care Team | Description | +--------+---------+ + + + | 04/28/ | Office | [facility] | Jalil Jane | Diarrhea, | | 2019 | Visit | GASTROENTEROLOGY | MD Cosmo [address] | unspecified type | | | | [address] | [address] [place] | (Primary Dx); | | | | [address] [place], [place] | [place] [address] | Gastroesophageal | | | | [address] | [phone] | reflux disease, | | | | [phone] | | esophagitis presence | | | [...] + + documented in this encounter Progress Notes Jalil Jane MD - 04/28/2019 3:00 PM PDT Gastroenterology [...] history: She is no longer in the half-way, and is living with her boyfriend. Diarrhea [...] or fail to improve. CC: Lyudmila Child, RENAN [address] [place] [place] [address] Portions of this chart may have been created with [employer] voice recognition software. Occasi onal wrong-word or [...]
--- OUTSIDE RECORDS SUMMARY | ~2020-01-02 | XMS | Clinical Summary ---
Demographics + + + | Address | [address] | | | [place] [address] | + + + | Home Phone | | + + + | Preferred Language | Unknown | + + + | Marital Status | Single | + + + | Congregational Affiliation | Unknown | + + + | Race | Unknown | + + + | Ethnic Group | Unknown | + + + Author + + + | Author | [facility] | | | and Paulana | + + + | Organization | [facility] | | | and Paulana [...] Team Providers + +------+ + | Care Structural Engineering Project Manager Name | Role | Phone | + +------+ + | Lyudmila Child VENTILATION EQUIPMENT TENDER | PCP | | + +------+ + [...] + + + | 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
--- OUTSIDE RECORDS SUMMARY | ~2020-01-02 | XMS | Encounter Summary ---
Demographics + + + | Address | [address] | | | [place] [address] | + + + | Home Phone | | + + + | Preferred Language | Unknown | + + + | Marital Status | Single | + + + | Pentecostal Affiliation | Unknown | + + + | Race | Unknown | + + + | Ethnic Group | Unknown | + + + Author + + + | Author | [facility] | | | and Paulana | + + + | Organization | [facility] | | | and Paulana | [...] Team Providers + +------+ + | Care Combination Worker Name | Role | Phone | + +------+ + | Lyudmila Child NP | PCP | | + +------+ + Reason for Visit +--------+ + | Reason | Comments | +--------+ + | Other | Medication question | +--------+ + Encounter Details +--------+ + + + + | Date | Type | Department | Care Team | Description | +--------+ + + + + | 01/26/ | Telephone | [facility] | Jalil Jane | Other (Medication | | 2019 | | GASTROENTEROLOGY | MD Cosmo [address] | question) | | | | [address] | [address] [place] | | | | | [address] [place], [place] | [place] [address] | | | | | [address] | [phone] | | | | | [phone] | | | +--------+ + + + [...] + + documented as of this encounter Plan of Treatment Not on filedocumented as of this encounter Visit Diagnoses Not on filedocumented in this encounter"
--- OUTSIDE RECORDS SUMMARY | ~2020-01-02 | XMS | Encounter Summary ---
Demographics + + + | Address | [address] | | | [place] [address] | + + + | Home Phone | | + + + | Preferred Language | Unknown | + + + | Marital Status | Single | + + + | Holiness Affiliation | Unknown | + + + | Race | Unknown | + + + | Ethnic Group | Unknown | + + + Author + + + | Author | [facility] | | | and Paulana | + + + | Organization | [facility] | | | and Paulana [...] Team Providers + +------+ + | Care Research Study Assistant Name | Role | Phone | + +------+ + | Lyudmila Child NP | PCP | | + +------+ + Reason for Visit + + + | Reason | Comments | + + + | Medication Orders | | + + + Encounter Details +--------+ + + + + | Date | Type | Department | Care Team | Description | +--------+ + + + + | 02/04/ | Telephone | [facility] | Jalil Jane | Medication Orders | | 2019 | | GASTROENTEROLOGY | MD Cosmo [address] | | | | | [address] | [address] [place] | | | | | [address] [place], [place] | [place] [address] | | | | | [address] | [phone] | | | | | [phone] | | | +--------+ + + + [...]
--- OUTSIDE RECORDS SUMMARY | ~2020-01-02 | XMS | Encounter Summary ---
Demographics + + + | Address | [address] | | | [place] [address] | + + + | Home Phone | | + + + | Preferred Language | Unknown | + + + | Marital Status | Single | + + + | Yarsani Affiliation | Unknown | + + + | Race | Unknown | + + + | Ethnic Group | Unknown | + + + Author + + + | Author | [facility] | | | and Paulana | + + + | Organization | [facility] | | | and Paulana [...] Team Providers + +------+ + | Care Inspector Floor Sub Assembly Name | Role | Phone | + +------+ + | Lyudmila Child TUBE DEPATCHER | PCP | | + +------+ + [...] | | Gastro-esoph | [address] | HIRE CAR DRIVER [address] | | | | | ageal reflux | [address] | [place], [place] | | | | | disease | [place], | [address] [place] | | | | | without | [place] [address] | [place] | | | | | esophagitis | Phone: | [phone] Phone: | | | | | Diarrhea, | [phone] | [phone] | | | | | unspecified | Fax: | Fax: | | | | | Nausea | [phone] | [phone] | | | | | Right upper | | | | | | | quadrant | | | | | | | pain | | | | | | | Procedures | | | | | | | TUBE DEPATCHER OFFICE | | | | | | | VISIT | | | +--------+--------+ + + + + Encounter Details +--------+---------+ + + + | Date | Type | Department | Care Team | Description | +--------+---------+ + + + | 01/22/ | Office | [facility] | Jalil Jane | Diarrhea, | | 2018 | Visit | GASTROENTEROLOGY | MD Cosmo [address] | unspecified type | | | | [address] | [address] [place] | (Primary Dx); | | | | [address] [place], [place] | [place] [address] | Irritable bowel | | | | [address] | [phone] | syndrome with | | | | [phone] | | diarrhea | +--------+---------+ + + [...] the contac t person at [facility] at to organize labs between patient and [facility]. Patient will go to [facility] to have Celiac drawn today. Spoke with Tia at [facility] this morning 01/23/19; advised we saw patient in clinic yesterday and will need time sensitive labs drawn; however, patient advised she would need assistance by someone at [place] to assist in getting those labs to [facility]; rec ommended this be performed next week; will fax labs to [facility] today; Tia will advise Natalya bowens who is the individual in charge of patient cares at [place]. Will follow up next week to ensure all parties are on board with obtaining labs. aing, Jalil Wilburn MD - 01/22/2019 3:00 PM PDTFor matting of this note might be different from the original. Outpatient Gastroenterology Consult Note Date of Office Visit: 01/23/19 Referring Provider: Lyudmila Child NP [address] [place], [place] [address] Providing Physician: Jalil Jane MD. Chief Complaint: New Patient and Gastroesophageal Reflux History of Present Illness Leah Muniz is a 18 y.o. female with DM1 and severe depression, current living i a group facility for adults with MH [...] prilosec and zantac for 2 week periods, adonis er helped much. Overall the heartburn is [...] 11/18/18 and US abdomen , done at [facility]'s Assessment and Plan This is a 18 year old F with depression and DM1, who presents for diarrhea with abdominal p ain. Her symptoms are typical for IBS-D per [place] criteria. She lacks any alarm symptoms for [...] about 3 months (around 04/24/2019). CC: Lyudmila Child, TUBE DEPATCHER [address] [facility] [place] [address] Lyudmila Child, [id number] [place] [address] Portions of this chart may have been created with [employer] voice recognition software. Occasi onal wrong-word or [...] - Blayne Brewer [address] [address], | REFERENCE LAB | | [place], [place] [id number] Civil Defense Director: Samy Fofana MD, Phone: | [place] | | [phone] | | + + + + + + + + | Performing | Address | City/State/Zipcode | Phone Number | | Organization | | | | + + + + + | [facility] | [address] | [place], [place] | [phone] | | [facility] | [place] | [id number] | | + + + + + documented in this encounter Visit Diagnoses + + | Diagnosis | + + | Diarrhea, unspecified type - Primary | + + | Irritable bowel syndrome with diarrhea Irritable bowel syndrome | + + documented in this encounter
--- OUTSIDE RECORDS SUMMARY | ~2020-01-02 | XMS | Encounter Summary ---
Demographics + + + | Address | [address] | | | [place] [address] | + + + | Home Phone | | + + + | Preferred Language | Unknown | + + + | Marital Status | Single | + + + | Congregation Affiliation | Unknown | + + + | Race | Unknown | + + + | Ethnic Group | Unknown | + + + Author + + + | Author | [facility] | | | and Paulana | + + + | Organization | [facility] | | | and Paulana [...] Team Providers + +------+ + | Care Rrts Name | Role | Phone | + [...] + | 02/04/ | Telephone | [facility] | Jalil Jane | Medication Orders | | 2019 | | GASTROENTEROLOGY | MD Cosmo [address] | | | | | [address] | [address] [place] | | | | | [address] [place], [place] | [place] [address] | | | | | [address] | [phone] | | | | | [phone] | | | +--------+ + + + [...]
--- OUTSIDE RECORDS SUMMARY | ~2020-01-02 | XMS | Encounter Summary ---
Demographics + + + | Address | [address] | | | [place] [address] | + + + | Home Phone | | + + + | Preferred Language | Unknown | + + + | Marital Status | Single | + + + | Mormon Affiliation | Unknown | + + + | Race | Unknown | + + + | Ethnic Group | Unknown | + + + Author + + + | Author | [facility] | | | and Paulana | + + + | Organization | [facility] | | | and [...] Team Providers + +------+ + | Care Weapons Specialist Name | Role | Phone | + [...] [place] | | | | | [address] [place], [place] | [place] [address] | | | | | [address] | [phone] | | | | | [phone] | | | +--------+ + + + [...]
--- OUTSIDE RECORDS SUMMARY | ~2020-01-02 | XMS | Clinical Summary ---
Demographics + + + | Address | [address] | | | [place] [address] | + + + | Home Phone | | + + + | Preferred Language | Unknown | + + + | Marital Status | Single | + + + | Catholic Affiliation | Unknown | + + + | Race | Unknown | + + + | Ethnic Group | Unknown | + + + Author + + + | Author | [facility] | | | and Paulana | + + + | Organization | [facility] | | [...] Team Providers + +------+ + | Care Market Research Intern Name | Role | Phone | + +------+ + | Lyudmila Child PUBLIC HEALTH POLICY ANALYST | PCP | | + +------+ + [...] + + + | 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
--- OUTSIDE RECORDS SUMMARY | ~2020-01-02 | XMS | Encounter Summary ---
Demographics + + + | Address | [address] | | | [place] [address] | + + + | Home Phone | | + + + | Preferred Language | Unknown | + + + | Marital Status | Single | + + + | Judaism Affiliation | Unknown | + + + | Race | Unknown | + + + | Ethnic Group | Unknown | + + + Author + + + | Author | [facility] | | | and Paulana | + + + | Organization | [facility] | | | and Paulana [...] Team Providers + +------+ + | Care Supplies Packer Name | Role | Phone | + +------+ + | Lyudmila Child SOLAR INSTALLATION SUPERVISOR | PCP | | + +------+ + [...] | | Gastro-esoph | [address] | IMMIGRATION INSPECTOR [address] | | | | | ageal reflux | [address] | [place], [place] | | | | | disease | [place], | [address] [place] | | | | | without | [place] [address] | [place] | | | | | esophagitis | Phone: | [phone] Phone: | | | | | Diarrhea, | [phone] | [phone] | | | | | unspecified | Fax: | Fax: | | | | | Nausea | [phone] | [phone] | | | | | Right upper | | | | | | | quadrant | | | | | | | pain | | | | | | | Procedures | | | | | | | SOLAR INSTALLATION SUPERVISOR OFFICE | | | | | | | VISIT | | | +--------+--------+ + + + + Encounter Details +--------+---------+ + + + | Date | Type | Department | Care Team | Description | +--------+---------+ + + + | 04/28/ | Office | [facility] | Jalil Jane | Diarrhea, | | 2019 | Visit | GASTROENTEROLOGY | MD Cosmo [address] | unspecified type | | | | [address] | [address] [place] | (Primary Dx); | | | | [address] [place], [place] | [place] [address] | Gastroesophageal | | | | [address] | [phone] | reflux disease, | | | | [phone] | | esophagitis presence | | | [...] to improve. CC: Lyudmila Child, RE[address] [place] [address] Portions of this chart may have been created with [employer] voice recognition software. Occasi onal wrong-word or [...]
--- OUTSIDE RECORDS SUMMARY | ~2020-01-02 | XMS | Encounter Summary ---
Demographics + + + | Address | [address] | | | [place] [address] | + + + | Home Phone | | + + + | Preferred Language | Unknown | + + + | Marital Status | Single | + + + | Spiritism Affiliation | Unknown | + + + | Race | Unknown | + + + | Ethnic Group | Unknown | + + + Author + + + | Author | [facility] | | | and Paulana | + + + | Organization | [facility] | | | and Paulana [...] Team Providers + +------+ + | Care Candle Wrapper Name | Role | Phone | + +------+ + | Lyudmila Child ROOM ATTENDANT | PCP | | + +------+ + [...] | | Gastro-esoph | [address] | ABATTOIR SUPERVISOR [address] | | | | | ageal reflux | [address] | [place], [place] | | | | | disease | [place], | [address] [place] | | | | | without | [place] [address] | [place] | | | | | esophagitis | Phone: | [phone] Phone: | | | | | Diarrhea, | [phone] | [phone] | | | | | unspecified | Fax: | Fax: | | | | | Nausea | [phone] | [phone] | | | | | Right upper | | | | | | | quadrant | | | | | | | pain | | | | | | | Procedures | | | | | | | ROOM ATTENDANT OFFICE | | | | | | | VISIT | | | +--------+--------+ + + + + Encounter Details +--------+---------+ + + + | Date | Type | Department | Care Team | Description | +--------+---------+ + + + | 04/28/ | Office | [facility] | Jalil Jane | Diarrhea, | | 2019 | Visit | GASTROENTEROLOGY | MD Cosmo [address] | unspecified type | | | | [address] | [address] [place] | (Primary Dx); | | | | [address] [place], [place] | [place] [address] | Gastroesophageal | | | | [address] | [phone] | reflux disease, | | | | [phone] | | esophagitis presence | | | [...] history: She is no longer in the nursing home, and is living with her boyfriend. Diarrhea [...] fail to improve. CC: Lyudmila Child, [address] [place] [address] Portions of this chart may have been created with [employer] voice recognition software. Occasi onal wrong-word or [...]
--- OUTSIDE RECORDS SUMMARY | ~2020-01-02 | XMS | Encounter Summary ---
Demographics + + + | Address | [address] | | | [place] [address] | + + + | Home Phone | | + + + | Preferred Language | Unknown | + + + | Marital Status | Single | + + + | Christianity Affiliation | Unknown | + + + | Race | Unknown | + + + | Ethnic Group | Unknown | + + + Author + + + | Author | [facility] | | | and Paulana | + + + | Organization | [facility] | | | and Paulana [...] Team Providers + +------+ + | Care Water Supply Technician Name | Role | Phone | + [...] + | 02/04/ | Telephone | [facility] | Jalil Jane | Medication Orders | | 2019 | | GASTROENTEROLOGY | MD Cosmo [address] | | | | | [address] | [address] [place] | | | | | [address] [place], [place] | [place] [address] | | | | | [address] | [phone] | | | | | [phone] | | | +--------+ + + + [...]
--- OUTSIDE RECORDS SUMMARY | ~2020-01-02 | XMS | Encounter Summary ---
Demographics + + + | Address | [address] | | | [place] [address] | + + + | Home Phone [...] + + + | Author | [facility] | | | and Paulana | + + + | Organization | [facility] | | | and Paulana [...] Team Providers + +------+ + | Care Travel Physical Therapist Name | Role | Phone | + +------+ + | Lyudmila Child COMB WINDER | PCP | | + +------+ + [...] | | Gastro-esoph | [address] | SENIOR IT ASSISTANT [address] | | | | | ageal reflux | [address] | [place], [place] | | | | | disease | [place], | [address] [place] | | | | | without | [place] [address] | [place] | | | | | esophagitis | Phone: | [phone] Phone: | | | | | Diarrhea, | [phone] | [phone] | | | | | unspecified | Fax: | Fax: | | | | | Nausea | [phone] | [phone] | | | | | Right upper | | | | | | | quadrant | | | | | | | pain | | | | | | | Procedures | | | | | | | COMB WINDER OFFICE | | | | | | | VISIT | | | +--------+--------+ + + + + Encounter Details +--------+---------+ + + + | Date | Type | Department | Care Team | Description | +--------+---------+ + + + | 01/22/ | Office | [facility] | Jalil Jane | Diarrhea, | | 2018 | Visit | GASTROENTEROLOGY | MD Cosmo [address] | unspecified type | | | | [address] | [address] [place] | (Primary Dx); | | | | [address] [place], [place] | [place] [address] | Irritable bowel | | | | [address] | [phone] | syndrome with | | | | [phone] | | diarrhea | +--------+---------+ + + [...] is the contac t person at [facility] at to organize labs between patient and [facility]. Patient will go to [facility] to have Celiac drawn today. Spoke with Tia at [facility] this morning 01/23/19; advised we saw patient in clinic yesterday and will need time sensitive labs drawn; however, patient advised she would need assistance by someone at [place] to assist in getting those labs to [facility]; rec ommended this be performed next week; will fax labs to [facility] today; Tia will advise Natalya bowens who is the individual in charge of patient cares at [place]. Will follow up next week to ensure all parties are on board with obtaining labs. aing, Jalil Wilburn MD - 01/22/2019 3:00 PM PDTFor matting of this note might be different from the original. Outpatient Gastroenterology Consult Note Date of Office Visit: 01/23/19 Referring Provider: Lyudmila Child NP [address] [place], [place] [address] Providing Physician: Jalil Jane MD. Chief Complaint: [...] nightly. Insulin Pen Needle (BD PEN NEEDLE ANROLD U/F) 32G X 4 MM MISC by [...] 11/18/18 and US abdomen , done at [facility]'s Assessment and Plan This is a 18 year old F with depression and DM1, who presents for diarrhea with abdominal p ain. Her symptoms are typical for IBS-D per [place] criteria. She lacks any alarm symptoms for [...] 3 months (around 04/24/2019). CC: Lyudmila Child, COMB WINDER [address] [place] [address] Lyudmila Child, [id number] [facility] [place] [address] Portions of this chart may have been created with [employer] voice recognition software. Occasi onal wrong-word or [...] [address] [address], | REFERENCE LAB | | [place], [place] [id number] Harp Maker: Samy Fofana MD, Phone: | [place] | | [phone] | | + + + + + + + + | Performing | Address | City/State/Zipcode | Phone Number | | Organization | | | | + + + + + | [facility] | [address] | [place], [place] | [phone] | | [facility] | [place] | [phone] | | + + + + + documented in this encounter Visit Diagnoses + + | Diagnosis | + + | Diarrhea, unspecified type - Primary | + + | Irritable bowel syndrome with diarrhea Irritable bowel syndrome | + + documented in this encounter
--- OUTSIDE RECORDS SUMMARY | ~2020-01-02 | XMS | Encounter Summary ---
Demographics + + + | Address | [address] | | | [place] [address] | + + + | Home Phone | | + + + | Preferred Language | Unknown | + + + | Marital Status | Single | + + + | Oriental Orthodox Affiliation | Unknown | + + + | Race | Unknown | + + + | Ethnic Group | Unknown | + + + Author + + + | Author | [facility] | | | and Paulana | + + + | Organization | [facility] | | | and [...] Team Providers + +------+ + | Care Bridge Game Director Name | Role | Phone | [...] | | | [address] [facility] [facility] | [place]. | | | | | [address] [place] [address] | [place] [address] | | | | | [address] | | | | | | [phone] | | | +--------+ + + + [...]
--- OUTSIDE RECORDS SUMMARY | ~2020-01-02 | XMS | Encounter Summary ---
Demographics + + + | Address | [address] | | | [place] [address] | + + + | Home Phone | | + + + | Preferred Language | Unknown | + + + | Marital Status | Single | + + + | Yazidi Affiliation | Unknown | + + + | Race | Unknown | + + + | Ethnic Group | Unknown | + + + Author + + + | Author | [facility] | | | and Paulana | + + + | Organization | [facility] | | | [...] Team Providers + +------+ + | Care Lapel Padder Blindstitch Name | Role | Phone | + [...] [place] | | | | | [address] [place], [place] | [place] [address] | | | | | [address] | [phone] | | | | | [phone] | | | +--------+ + + + [...]
--- OUTSIDE RECORDS SUMMARY | ~2020-01-02 | XMS | Encounter Summary ---
Demographics + + + | Address | [address] | | | [place] [address] | + + + | Home Phone [...] Author | [facility] | | | and Paulana | + + + | Organization | [facility] | | | and Paulana [...] Team Providers + +------+ + | Care Horse Trader Name | Role | Phone | + [...] | | | [address] [facility] | [place]. | | | | | [address] | [place] [address] | | | | | [address] | | | | | | [phone] | | | +--------+ + + + [...]
--- OUTSIDE RECORDS SUMMARY | ~2020-01-02 | XMS | Encounter Summary ---
Demographics + + + | Address | [address] | | | [place] [address] | + + + | Home Phone | | + + + | Preferred Language | Unknown | + + + | Marital Status | Single | + + + | Bahai Affiliation | Unknown | + + + | Race | Unknown | + + + | Ethnic Group | Unknown | + + + Author + + + | Author | [facility] | | | and Paulana | + + + | Organization | [facility] | [...] Team Providers + +------+ + | Care Laundry Equipment Operator Name | Role | Phone | + +------+ + | Lyudmila Child LIST OF FIRST JOB IDEAS | PCP | | + +------+ + [...] | | Gastro-esoph | [address] | PUMP TENDER [address] | | | | | ageal reflux | [address] | [place], [place] | | | | | disease | [place], | [address] [place] | | | | | [place] | [place] [address] | [place] | | | | | esophagitis | Phone: | [address] Phone: | | | | | Diarrhea, | [phone] | [phone] | | | | | unspecified | Fax: | Fax: | | | | | Nausea | [phone] | [phone] | | | | | Right upper | | | | | | | quadrant | | | | | | | pain | | | | | | | Procedures | | | | | | | LIST OF FIRST JOB IDEAS OFFICE | | | | | | | VISIT | | | +--------+--------+ + + + + Encounter Details +--------+---------+ + + + | Date | Type | Department | Care Team | Description | +--------+---------+ + + + | 01/22/ | Office | [facility] | Jalil Jane | Diarrhea, | | 2018 | Visit | GASTROENTEROLOGY | MD Cosmo [address] | unspecified type | | | | [address] | [address] [place] | (Primary Dx); | | | | [address] [place], [place] | [place] [address] | Irritable bowel | | | | [address] | [phone] | syndrome with | | | | [phone] | | diarrhea | +--------+---------+ + + [...] [place] is the contac t person at [facility] at to organize labs between patient and [facility]. Patient will go to [facility] to have Celiac drawn today. Spoke with Tia at [facility] this morning 01/23/19; advised we saw patient in clinic yesterday and will need time sensitive labs drawn; however, patient advised she would need assistance by someone at [place] to assist in getting those labs to [facility]; rec ommended this be performed next week; will fax labs to [facility] today; Tia will advise Natalya bowens who is the individual in charge of patient cares at [place]. Will follow up next week to ensure all parties are on board with obtaining labs. aing, Jalil Wilburn MD - 01/22/2019 3:00 PM PDTFor matting of this note might be different from the original. Outpatient Gastroenterology Consult Note Date of Office Visit: 01/23/19 Referring Provider: Lyudmila Child NP [address], [place] [address] Providing Physician: Jalil Jane MD. Chief Complaint: [...] 11/18/18 and US abdomen , done at [facility]'s Assessment and Plan This is a 18 year old F with depression and DM1, who presents for diarrhea with abdominal p ain. Her symptoms are typical for IBS-D per [place] criteria. She lacks any alarm symptoms for [...] 3 months (around 04/24/2019). CC: Lyudmila Child, LIST OF FIRST JOB IDEAS [address] [place] [address] Lyudmila Child, [id number] [place] [address] Portions of this chart may have been created with [employer] voice recognition software. Occasi onal wrong-word or [...] [id number], | REFERENCE LAB | | [place], [place] [id number] Cuffing Machine Operator: Samy Fofana MD, Phone: | [place] | | [phone] | | + + + + + + + + | Performing | Address | City/State/Zipcode | Phone Number | | Organization | | | | + + + + + | [facility] | [address] | [place], [place] | [phone] | | [facility] | [address] [place] | [address] | | + + + + + documented in this encounter Visit Diagnoses + + | Diagnosis | + + | Diarrhea, unspecified type - Primary | + + | Irritable bowel syndrome with diarrhea Irritable bowel syndrome | + + documented in this encounter
--- NOTE | 2020-01-02 22:45 | NUR ---
PT ARRIVED IN CCU AT 2210, PT IS STILL DROWSY FROM CENTRAL LINE INSERTION DOWN IN ED. PT DOES OPEN EYES TO VOICE AND DOES FOLLOW COMMANDS. ALL LOBES ARE CLEAR, NO PERIPHERAL EDEMA NOTED, ABD SOUNDS PRESENT, INSULIN DRIP NOW AT 1.0. INSULIN PUMP HAS A BASALA RATE OF 1.5, MD JAY IS AWARE. PT IS STILL DUE TO VOID AT THIS TIME. IV FLUIDS STARTED PER ORDER. HR IN THE 130'S ST, TEMP 99.5F, WILL CONTINUE TO MONITOR.
--- NOTE | 2020-01-03 00:07 | NUR ---
PT AT THIS TIME IS SLEEPING. INSULIN DRIP TITRATED TO 1.7. PT STILL DUE TO VOID. HR IN THE 120'S FOR THE MOST PART.
--- NOTE | 2020-01-03 01:05 | NUR ---
INSULIN DRIP INCREASED TO 2.8. PT IS SLEEPING. HR STILL IN THE 120'S WITH SOFT BLOOD PRESSURES. WILL CONTINUE TO MONITOR.
--- NOTE | 2020-01-03 02:30 | NUR ---
PT NOW IS MORE ALERT, AAOX4, PT VOIDED 500MLS. PT IS A BIT UNSTEADY OVERALL. LOBES ARE CLEAR, ABD SOUNDS PRESENT, NO EDEMA NOTED. HR NOW AT 120. WILL CONTINUE TO MONITOR.
--- NOTE | 2020-01-03 03:37 | NUR ---
PT IS SLEEPING AT THIS TIME. NO NEW CONCERNS NOTED.
--- NOTE | 2020-01-03 04:00 | NUR ---
PT OVERALL SEEMS A BIT STRONGER. PT HOWEVER IS STILL VERY TIRED. NO CHANGES IN INSULIN DRIP FOR THIS HOUR. HR <120 MOSTLY SO FAR. BP'S STILL SOFT. NO NEW CONCERNS NOTED AT THIS TIME.
--- NOTE | 2020-01-03 05:41 | NUR ---
LAB DRAW FROM CENTRAL LINE WAS DONE. PT STATED THAT SHE FEELS BETTER OVERALL BUT IS STILL VERY TIRED. HR <120 AT THIS TIME, BP'S STILL SOFT UPPER 90'S. PT IS DUE TO VOID AGAIN AT THIS TIME. WILL CONTINUE TO MONITOR.
--- NOTE | 2020-01-03 07:30 | NUR ---
REPORT RECIEVED. RESTFUL IN BED. REMAINS ON INSULIN GTT AT 1 UNIT HR.
--- NOTE | 2020-01-03 12:00 | NUR ---
ASSESSMENT UNCHANGED. REMAINS ON INSULIN GTT WITH Q ONE HR ACCHECKS.
--- NOTE | 2020-01-03 12:42 | NUR ---
SITTING UP IN BED TALKING ON PHONE,TAKING CLEAR LIQUID LUNCH. CYMBALTA GIVEN ORDERED. REMAINS ON INSULIN GTT, CURRENTLY AT 0.9 UNITS/HR. DR. JAY UPDATE ON INSULIN GTT AND BLOOD SUGARS. NO FUTER ORDERS.
[2020-01-03] MEDS ORDERED: ASCORBIC ACID500 M3 PO (13:41)
[2020-01-03] MEDS ORDERED: VITAMIN D31250 MC1 PO (13:42)
--- NOTE | 2020-01-03 13:45 | NUR ---
MED REC COMPLETED WITH MEDICATION REFILL HISTORY AND PATIENT INTERVIEW.
--- NOTE | 2020-01-03 16:00 | NUR ---
IN GOOD SPIRITS. DENIES PAIN. ASKING FOR FOOD.
--- NOTE | 2020-01-03 17:25 | NUR ---
SITTING UP IN BED FOR DINNER. ORDERS RECIEVED FOR PATIENT TO PROGRAM HER INSULIN PUMP R/T CARB COUNT, THEN DC INSULIN GTT. THIS PER DR. VEGAS.
--- NOTE | 2020-01-03 18:30 | NUR ---
IV FLUIDS DC'D. PO KCL GIVEN. DILIA HAS BEEN TALKING ON PHONE MOST OF DAY. C/O SLIGHT THROAT IRRITATION. SAID IT FEELS LIKE I HAVE BUMPS IN MY THROAT. IS TAKING SHERBERT.
--- NOTE | 2020-01-03 20:30 | NUR ---
PT IS STILL SINUS TACHY. SLIGHT TEMP IS PERSISTING, PT IS AAOX4, AND MUCH STRONGER THAN LAST NIGHT. PT DENIES PAIN, BG WAS 200, PT DID CALIBRATE HER INSULIN PUMP ACCORDINGLY. ALL LOBES ARE CLEAR, ABD SOUNDS PRESENT, NO PERIPHERAL EDEMA NOTED, ALL LUMEN ON CENTRAL LINE WERE HEP-LOCKED. URINE OUTPUT IS ADEQUATE SO FAR. WILL CONTINUE TO MONITOR.
--- NOTE | 2020-01-03 22:00 | NUR ---
PT IS AWAKE IN BED. NO NEW CONCERNS NOTED AT THIS TIME.
--- NOTE | 2020-01-03 23:15 | NUR ---
PATIENT REPORTS MILD NAUSEA. PRN ZOFRAN PROVIDED. DISTAL PORT USED ON CENTRAL LINE, NOW HEPARIN LOCKED. PATIENT REQUEST HER LIGHTS TURNED OUT. NO OTHER NEEDS AT THIS TIME.
--- NOTE | 2020-01-04 00:15 | NUR ---
NO CHANGES WERE NOTED WITH THE SECOND SHIFT ASSESSMENT. HR IS WDL LONG PT IS LAYING IN BED. HR INCREASES >110 WHEN PT IS MOVING ABOUT. OTHER V/S ARE WDL AT THIS TIME. URINE OUTPUT IS ADQUATE, PT DENIES PAIN. APPETITE HAS INCREASED SOME. NO NEW CONCERNS NOTED AT THIS TIME.
--- NOTE | 2020-01-04 01:51 | NUR ---
PT IS SLEEPING AT THIS TIME. NO NEW CONCERNS NOTED.
--- NOTE | 2020-01-04 06:00 | NUR ---
PT IS AWAKE IN ROOM. PT DENIES PAIN AND HAS NO OTHER COMPLAINTS AT THIS TIME. BLOOD DRAW DONE FROM IJ. ALL LUMENS ARE HEP-LOCKED AT THIS TIME.
--- NOTE | 2020-01-04 06:13 | NUR ---
PT OVERALL DID WELL THIS SHIFT. HR DOES STILL INCREASE INTO THE UPPER 120'S WHEN WALKING AROUND, AT REST HER HR IS <100. ALL LOBES ARE CLEAR, PT IS AAOX4, ABD SOUNDS PRESENT, PT HAS DENIED PAIN AND OTHER COMPLAINTS, NO PERIPHERAL EDEMA NOTED, URINE OUTPUT IS ADEQUATE AND PO INTAKE IS GOOD. PT DID STATE TO ME THAT SHE HAD NIGHTMARES AND WISHES TO BE PUT BACK ON MINIPRESS. BG LAST NIGHT WAS 200, PT DID CALIBRATE HER INSULIN PUMP. NO NEW CONCERNS WERE NOTED SO FAR THIS SHIFT.
--- NOTE | 2020-01-04 07:30 | NUR ---
REPORT RECIEVED. PATIENT IS AWAKE AND UP TO BR. IS STABLE ON FEET. DENIES PAIN. STATES SHE HAD NIGHTMARES LAST NIGHT. TAKED WITH PATIENT REGARDING THIS.
--- NOTE | 2020-01-04 08:00 | NUR ---
ASSESSMENT DONE. TALKED WITH PATIENT ABOUT POC FOR DAY IS UNDERSTANDING.
--- NOTE | 2020-01-04 08:15 | NUR ---
ACCUCHECK 168.
--- NOTE | 2020-01-04 08:42 | NUR ---
sitting up in chair, EATING BREAKFAST AND TALKING TO THERAPIST ON PHONE. PATIENT DID PROGRAM INSULIN PUMP ACCORDING TO BLOOD SUGAR AND CARBS FOR BREAKFAST.
--- NOTE | 2020-01-04 09:18 | NUR ---
MONITOR SHOWS ST HEART RATE 150'S. PATIENT STANDING AT BEDSIDE. STATES SHE FEELS A LITTLE ANXIOUS.
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
[2020-01-04] MEDS ORDERED: HYDROXYZINE HCL25 MG PO (10:12)
[2020-01-04] MEDS ORDERED: DOXYCYCLINE HY100 MG PO (10:13)
--- NOTE | 2020-01-04 10:16 | NUR ---
DR. VEGAS HERE TO SEE PATIENT. ORDERS RECIEVED. VISTERIL 25 MG PO GIVEN PER ORDERS.
--- NOTE | 2020-01-04 10:25 | NUR ---
PLAN TO RUN LABS, CHECK RESULTS THEN POSSIBLE DISCHARGE AFTER LUNCH.
--- NOTE | 2020-01-04 10:45 | NUR ---
ZOFRAN GIVEN FOR NAUSEA.
--- NOTE | 2020-01-04 12:15 | NUR ---
RIJ DC'D W/O COMPLICATIONS. MONITOR DC'D.
--- NOTE | 2020-01-04 13:00 | NUR ---
AMBULATED TO SHOWER IN ROOM 118.
--- NOTE | 2020-01-04 13:30 | NUR ---
TOLERATED SHOWER WELL. DENIES PROBLEMS.
--- NOTE | 2020-01-04 13:57 | NUR ---
DISCHARGE INSTRUCTIONS GIVEN WITH PATIENT UNDERSTANDING. AWAITING RIDE.
--- NOTE | 2020-01-04 15:08 | NUR ---
REMAINS IN ROOM 128. AJIT AWAD HERE TO TALK WITH PATIENT. PATIENT HAS BEEN UP AND AROUND IN ROOM.
--- NOTE | 2020-01-04 16:10 | NUR ---
discharged. AMBULATORY. WALKED OUT OF HOSPITAL WITH [employer] WORKER (AJIT Kaminski)
--- NOTE | 2020-01-05 09:56 | CONS ---
[facility] [address], [place] [address] Signed DATE OF CONSULTATION: 01/02/2020 TIME: 09:20 p.m. CONSULTING PHYSICIAN: Anshul Jarvis MD REQUESTING PHYSICIANS: Dr. Dye and Dr. Khanna. PROBLEM: Diabetic ketoacidosis with poor peripheral access, need for central venous access. INDICATION: This 19-year-old white woman, presents with diabetic ketoacidosis. She was seen yesterday with hyperglycemia, but without diabetic ketoacidosis. She may have some underlying psychologic problems and the issues, for which she has been difficult to manage in the ER initially. Two hours of effort have allowed for placement of a 22-gauge IV in the dorsum of her right thumb. On that basis, recommendation has been made for central venous catheter for blood draws and fluid resuscitation and other interventions requiring central venous access. PAST MEDICAL HISTORY: Includes diabetes as described. She has no prior history of clavicle fracture or known coagulopathy. REVIEW OF SYSTEMS: She denies any shortness of breath or chest pain. She is having no abdominal pain or chest pain. She is somewhat anxious she admits. PHYSICAL EXAMINATION: GENERAL: A somewhat obese white woman, who looks to be flushed. She is alert and oriented and cooperative with me. HEENT: Mucous membranes are almost slightly dry. Trachea is midline. Clavicles are not deformed. CHEST: Shows normal respiratory excursion. ABDOMEN: Obese. EXTREMITIES: Show no clubbing, cyanosis, or edema. There is an IV in the right hand near the thumb. ASSESSMENT: Reliable central venous access is needed for management of her significant diabetic Electronically Signed By: ANSHUL JARVIS MD 01/05/20 0956 PATIENT NAME: FAUSTINO JIMENEZ CONSULTATION DATE OF : 99 REPORT #: [id number] PHYSICIAN: ANSHUL JARVIS MD PCP: SHERLYN PAUL DO REPORT IS CONFIDENTIAL AND NOT TO BE RELEASED WITHOUT AUTHORIZATION [facility] [address], [place] [address] Signed ketoacidosis. She is known to have a pH of 7.20. I discussed with her a recommendation of treatment to include placement of a right internal jugular central venous catheter for a subclavian line depending on what is possible. The risks of bleeding, infection, arterial injury, need for other approaches for access, and so forth were all reviewed in detail. She understands and wished to proceed. Anshul Jarvis MD /MODL /[id number] cc: MD Nurys Jaeger MD Copies: PATRICK DYE MD, CYNTHIA MD ~ Electronically Signed By: ANSHUL JARVIS MD 01/05/20 0956 PATIENT NAME: FAUSTINO JIMENEZ CONSULTATION DATE OF : 99 REPORT #: [id number] PHYSICIAN: ANSHUL JARVIS MD PCP: SHERLYN PAUL DO REPORT IS CONFIDENTIAL AND NOT TO BE RELEASED WITHOUT AUTHORIZATION
--- NOTE | 2020-01-05 09:56 | OR ---
[facility] [address], [place] [address] Signed DATE OF OPERATION: 01/02/2020 SURGEON: Anshul Jarvis MD TIME: 9:25 p.m. PREOPERATIVE DIAGNOSES: 1. Need for central venous access with severe diabetic ketoacidosis and poor peripheral access. 2. Obesity. POSTOPERATIVE DIAGNOSES: 1. Need for central venous access with severe diabetic ketoacidosis and poor peripheral access. 2. Obesity. PROCEDURE: Placement of right central venous catheter via internal jugular route. ANESTHESIA: IV sedation, fentanyl 100 mcg, Versed 2 mg, and local 1% lidocaine. INDICATION: This 19-year-old white woman is in the emergency room in Room #8 and is to be admitted by Dr. Khanna with diabetic ketoacidosis including a pH of 7.20. Peripheral access has been extremely difficult to obtain. A very small 22-gauge IV angiocath is noted in the right dorsum of her thumb. I have explained the risks of bleeding, infection, pneumothorax, and other unforeseen complications related to placement of the catheter and she agrees to proceed. She does not feel she can do this without intravenous sedation and given her behavior previously as outlined by the emergency room physician that is probable. FINDINGS: Intravenous sedation went without problems. Full cardiopulmonary monitoring was maintained. She had good saturations throughout and no complication. Placement of the tube or the catheter in the right internal jugular vein showed dark nonpulsatile blood and easy flushing and postprocedure chest x-ray is pending. DESCRIPTION OF PROCEDURE: Electronically Signed By: ANSHUL JARVIS MD 01/05/20 0956 PATIENT NAME: FAUSTINO JIMENEZ OPERATIVE REPORT DATE OF : 99 REPORT #: [id number] PHYSICIAN: ANSHUL JARVIS MD PCP: SANG PAUL DO REPORT IS CONFIDENTIAL AND NOT TO BE RELEASED WITHOUT AUTHORIZATION [facility] [address], [place] [address] Signed In the mild Trendelenburg position, the right neck was prepared with a chlorhexidine solution and draped sterilely as was the right infraclavicular space. The arms were at the side. Sterile draping was used as usual and sterile technique per hospital protocol including mask, gloves and gown and so on. She was given 100 mcg of intravenous fentanyl followed by 2 mg of IV Versed with careful monitoring showing no sign of decreased O2 saturations. A 1% lidocaine was injected over the right sternocleidomastoid muscle. Using the Seldinger technique, the right internal jugular vein was easily accessed on the 1st pass showing dark nonpulsatile blood. A flexible J-wire was passed down the needle, which was passed without resistance. The site was incised and dilated with enclosed Arrow blue dilator. A previously inspected and irrigated Arrow Blue Tip triple-lumen catheter was passed over the wire. The wire was withdrawn. Aspiration on the distal port showed dark nonpulsatile blood. The was applied to the site and flushed with sterile saline. The catheter was withdrawn a few cm in the appropriate position and secured with the enclosed collar device with the Popeye needle and 2-0 silk suture and additionally secured the skin as well. An anti-infective disk was applied as was a SorbaView dressing. The postprocedure chest x-ray was then performed and I have just reviewed it showing no evidence of complication in the tip in the superior vena cava. MD THERESE Bennett/MODL /[id number] cc: MD Sang Delgado DO Sheldon Wendler, MD Copies: BETZAIDA KHANNA MD, ARIAN DO Electronically Signed By: ANSHUL JARVIS MD 01/05/20 0956 PATIENT NAME: FAUSTINO JIMENEZ OPERATIVE REPORT DATE OF : 99 REPORT #: [id number] PHYSICIAN: ANSHUL JARVIS MD PCP: SANG PAUL DO REPORT IS CONFIDENTIAL AND NOT TO BE RELEASED WITHOUT AUTHORIZATION [facility] [address] [place] [address] [place], [place] [address] Signed PATRICK BOLIVAR MD ~ Electronically Signed By: ANSHUL JARVIS MD 01/05/20 0956 PATIENT NAME: FAUSTINO JIMENEZ OPERATIVE REPORT DATE OF : 99 REPORT #: [id number] PHYSICIAN: ANSHUL JARVIS MD PCP: SANG PAUL DO REPORT IS CONFIDENTIAL AND NOT TO BE RELEASED WITHOUT AUTHORIZATION
== END 2020-01-04 16:10 | disposition home or self-care (01) ==
LOC: ED 16:34 → CCU 21:39
PROVIDERS: ADMIT Internal Medicine
PROC: 05HM33Z Insertion of Infusion Device into Right Internal Jugular Vein, Percutaneous Approach (ICD-10-PCS; principal; 2020-01-02)
PROC: B513ZZA Fluoroscopy of Right Jugular Veins, Guidance (ICD-10-PCS; 2020-01-02)
DX: E10.10 Type 1 diabetes mellitus with ketoacidosis without coma (principal); L03.113 Cellulitis of right upper limb; F41.8 Other specified anxiety disorders; Z91.041 Radiographic dye allergy status; Z91.048 Other nonmedicinal substance allergy status
CPT/HCPCS: 36415; 36556; 71045; 80048; 80053; 81001; 82010; 82800; 83690; 83735; 84100; 84439; 84443; 84703; 85025; 85379; 96361; 96372; 96375; 96376; 99285-25; C9113; G0378; J0690; J1815; J2250; J2405; J2765; J3010; J7030; J7042; Q0177; U0002

== ENCOUNTER 2020-02-22 23:21 | Emergency (ER) | payer OTHER ==
[~2020-02-22] VITALS: Ht 167.6 cm; Wt 94.5 kg
--- OUTSIDE RECORDS SUMMARY | ~2020-02-22 | XMS | Encounter Summary ---
Demographics + + + | Address | [address] | | | [place] [address] | + + + | Home Phone [...] + + + | Author | [facility] | | | and [place]ana | + + + | Organization | [facility] | | | and Paulana [...] Team Providers + +------+ + | Care Earth Observations Chief Scientist Name | Role | Phone | + +------+ + | Lyudmila Child SUPERVISOR MOLD YARD | PCP | | + +------+ + [...] | | Gastro-esoph | [address] | SLIME PLANT OPERATOR [address] | | | | | ageal reflux | [address] | [address] | | | | | disease | [place], | [address] | | | | | without | [place] [address] | [place], | | | | | esophagitis | Phone: | [place] [address] | | | | | Diarrhea, | [phone] | Phone: | | | | | unspecified | Fax: | [phone] | | | | | Nausea | [phone] | Fax: | | | | | Right upper | | [phone] | | | | | quadrant | | | | | | | pain | | | | | | | Procedures | | | | | | | SUPERVISOR MOLD YARD OFFICE | | | | | | | VISIT | | | +--------+--------+ + + + + Encounter Details +--------+---------+ + + + | Date | Type | Department | Care Team | Description | +--------+---------+ + + + | 01/22/ | Office | [facility] | Jalil Jane | Diarrhea, | | 2018 | Visit | GASTROENTEROLOGY | MD Cosmo [address] | unspecified type | | | | [address] | [address] [place] | (Primary Dx); | | | | [address] [place], [place] | [place] [address] | Irritable bowel | | | | [address] | [phone] | syndrome with | | | | [phone] | | diarrhea | +--------+---------+ + + [...] the contac t person at [facility] at to organize labs between patient and [place]. Patient will go to [facility] to have Celiac drawn today. Spoke with Tia at [facility] this morning 01/23/19; advised we saw patient in clinic yesterday and will need time sensitive labs drawn; however, patient advised she would need assistance by someone at [place] to assist in getting those labs to [place]; rec ommended this be performed next week; will fax labs to [place] today; Tia will advise Natalya jose aayde who is the individual in charge of patient cares at [place]. Will follow up next week to ensure all parties are on board with obtaining labs. DALaingJalil MD - 01/22/2019 3:00 PM PDTFor matting of this note might be different from the original. Outpatient Gastroenterology Consult Note Date of Office Visit: 01/23/19 Referring Provider: Lyudmila Child NP [address] [place] [address] Providing Physician: Jalil Jane MD. Chief Complaint: [...] Her symptoms are typical for IBS-D per Leblanc criteria. She lacks any alarm symptoms for [...] months (around 04/24/2019). CC: Lyudmila Child NP [address] [facility] [address] Lyudmila OsmanAlexys Child, [place] [place] [address] Portions of this chart may have been created with Z[employer] voice recognition software. Occasi onal wrong-word or [...] | REFERENCE LAB | | [place] [id number] Type Proof Reproducer: Samy Fofana MD, Phone: | [place]NE [place] | | [phone] | | + + + + + + + + | Performing | Address | City/State/Zipcode | Phone Number | | Organization | | | | + + + + + | REFERENCE LAB | [address] | [place], [place] | [phone] | | [facility] | [place] [place] | [address] | | + + + + + documented in this encounter Visit Diagnoses + + | Diagnosis | + + | Diarrhea, unspecified type - Primary | + + | Irritable bowel syndrome with diarrhea Irritable bowel syndrome | + + documented in this encounter
--- OUTSIDE RECORDS SUMMARY | ~2020-02-22 | XMS | Encounter Summary ---
Demographics + + + | Address | [address] | | | [place] [address] | + + + | Home Phone | | + + + | Preferred Language | Unknown | + + + | Marital Status | Single | + + + | Shinto Affiliation | Unknown | + + + | Race | Unknown | + + + | Ethnic Group | Unknown | + + + Author + + + | Author | [facility] | | | and [place]ana | + + + | Organization | [facility] | | | and Paulana [...] Team Providers + +------+ + | Care Naturalization Examiner Name | Role | Phone | + [...] + | 01/26/ | Telephone | [facility] | Jalil Jane | Other (Medication | | 2019 | | GASTROENTEROLOGY | MD Cosmo [address] | question) | | | | [address] | [address] [place] | | | | | [address] [place], [place] | [place] [address] | | | | | [address] | [phone] | | | | | [phone] | | | +--------+ + + + [...] 3:24 PM PDTName of Caller: Toshia from [place] with [facility] Name of Patient: Leah Muniz Reason for [...]
--- OUTSIDE RECORDS SUMMARY | ~2020-02-22 | XMS | Encounter Summary ---
Demographics + + + | Address | [address] | | | [place] [address] | + + + | Home Phone | | + + + | Preferred Language | Unknown | + + + | Marital Status | Single | + + + | Zoroastrianism Affiliation | Unknown | + + + | Race | Unknown | + + + | Ethnic Group | Unknown | + + + Author + + + | Author | [facility] | | | and [place]ana | + + + | Organization | [facility] | | | and Paulana [...] Team Providers + +------+ + | Care Webbing Seamer Pound Net Name | Role | Phone | + [...] + + | 02/04/ | Telephone | [facility] | Jalil Jane | Medication Orders | | 2019 | | GASTROENTEROLOGY | MD Cos[address] | | | | | [address] | [address] [place] | | | | | [address] [place], [place] | [place] [address] | | | | | [address] | [phone] | | | | | [phone] | | | +--------+ + + + [...] refills. Re faxed back to Benita at [facility] [phone] . elephone Encmadhavi prince - Enid Reyes RN - 02/06/2019 8:36 AM PDTCalled Benita to advise the fax chandler d not been received yet; she was not in the office yet; provided her alternative fax number. elephone Encount er - Enid Reyes RN - 02/05/2019 12:17 PM PDTReturned call to Benita at [facility]; during our call we lost contact; [...] change to orders and will fax to [facility] office for signature. She states patient does not eat on a regular basis and would like to modify and add prn to order. Provided our fax number and will await modification requestEle ctronically signed by Enid Reyes RN at 02/05/2019 12:30 PM PDTTelephone Encounter - Kyleigh Major - 02/04/2019 11:46 AM Momo, Director of Health Services for [facility] called in regards to an order received [...] like clarification. She gave her cell phone [phone] please call her when available, Thank you documented in this encounter Plan of Treatment Not on filedocumented as of this encounter Visit Diagnoses Not on filedocumented in this encounter"
--- OUTSIDE RECORDS SUMMARY | ~2020-02-22 | XMS | Encounter Summary ---
Demographics + + + | Address | [address] | | | [place] [address] | + + + | Home Phone | | + + + | Preferred Language | Unknown | + + + | Marital Status | Single | + + + | Confucianism Affiliation | Unknown | + + + | Race | Unknown | + + + | Ethnic Group | Unknown | + + + Author + + + | Author | [facility] | | | and [place]ana | + + + | Organization | [facility] | | | and [...] Team Providers + +------+ + | Care Molding Room Supervisor Name | Role | Phone | + [...] | | | [address] [facility] | Enid Mccord. | | | | | [address] | [place] [address] | | | | | [address] | | | | | | [phone] | | | +--------+ + + + [...]
--- OUTSIDE RECORDS SUMMARY | ~2020-02-22 | XMS | Clinical Summary ---
Demographics + + + | Address | [address] | | | [place] [address] | + + + | Home Phone [...] Author | [facility] | | | and [place]ana | + + + | Organization | [facility] | | | and [...] Team Providers + +------+ + | Care Receiving Tank Operator Name | Role | Phone | + +------+ + | Lyudmila Child PUBLICATIONS DESIGNER | PCP | | + +------+ + [...] + + + | Overview: Problem List Behavioral Interventionist | + + + + + | [...] Influenza | | 06/23/20 | | | (Season Ended) | 0 | 18, | | | [...] | [employer] | [facility] | [id number] | 04/28/20 | [phone] | | Medica [...] | 2001 | [phone] | [place] [address] | | | leilani | | | 8 (Home) | | + +--------+ +--------+ + + Advance Directives + + + + + | Type | Date Recorded | Patient | Explanation | | | | Line Installation Supervisor | | + + + + + | Power of | | | | | Hospice Spiritual Care Coordinator | | | | + + + + + | Advance | | | | | Directive | | | | + + + + +
--- OUTSIDE RECORDS SUMMARY | ~2020-02-22 | XMS | Encounter Summary ---
Demographics + + + | Address | [address] | | | [place] [address] | + + + | Home Phone | | + + + | Preferred Language | Unknown | + + + | Marital Status | Single | + + + | Denominational Affiliation | Unknown | + + + | Race | Unknown | + + + | Ethnic Group | Unknown | + + + Author + + + | Author | [facility] | | | and [place]ana | + + + | Organization | [facility] | | | and [...] Team Providers + +------+ + | Care Grease Remover Name | Role | Phone | + +------+ + | Lyudmila Child COVER SEAMER | PCP | | + +------+ + [...] | | Gastro-esoph | [address] | SAP HANA ARCHITECT [address] | | | | | ageal reflux | [address] | [address] | | | | | disease | [place], | [address] | | | | | without | [place] [address] | [place], | | | | | esophagitis | Phone: | [place] [address] | | | | | Diarrhea, | [phone] | Phone: | | | | | unspecified | Fax: | [phone] | | | | | Nausea | [phone] | Fax: | | | | | Right upper | | [phone] | | | | | quadrant | | | | | | | pain | | | | | | | Procedures | | | | | | | COVER SEAMER OFFICE | | | | | | | VISIT | | | +--------+--------+ + + + + Encounter Details +--------+---------+ + + + | Date | Type | Department | Care Team | Description | +--------+---------+ + + + | 04/28/ | Office | [facility] | Jalil Jane | Diarrhea, | | 2019 | Visit | GASTROENTEROLOGY | MD Cosmo [address] | unspecified type | | | | [address] | [address] [place] | (Primary Dx); | | | | [address] [place], [place] | [place] [address] | Gastroesophageal | | | | [address] | [phone] | reflux disease, | | | | [phone] | | esophagitis presence | | | [...] history: She is no longer in the [employer], and is living with her boyfriend. Diarrhea [...] or fail to improve. CC: Lyudmila Child, COVER SEAMER [address] [place] [address] Portions of this chart may have been created with [employer] voice recognition software. Occasi onal wrong-word or [...]
[~2020-02-22 23:21] MED LIST changes: +ASCORBIC ACID500 M3 PO; +DOXYCYCLINE HY100 MG PO; +VITAMIN D31250 MC1 PO
[2020-02-22] MEDS ORDERED: BASAGLAR K100 UNIT/1 (23:48)
[2020-02-22] MEDS ORDERED: REXULTI0.25 MG PO (23:52)
[2020-02-23] MEDS ORDERED: [UNRECOGNIZED DRUG - SUPPLY] MISC (00:23)
[2020-02-23] MEDS ORDERED: NOVOLOG MI100 UNIT/2 SUB-Q (00:23)
[2020-02-23] MEDS ORDERED: BASAGLAR K100 UNIT/1 SUB-Q (00:23)
== END 2020-02-23 00:45 | disposition home or self-care (01) ==
LOC: ED 23:21
DX: T85.694A Other mechanical complication of insulin pump, initial encounter (principal); Z76.0 Encounter for issue of repeat prescription; E10.9 Type 1 diabetes mellitus without complications; F41.9 Anxiety disorder, unspecified; Z88.8 Allergy status to other drugs, medicaments and biological substances; Z91.041 Radiographic dye allergy status; Z79.899 Other long term (current) drug therapy
CPT/HCPCS: 99283

== ENCOUNTER 2020-03-07 21:23 | Emergency (ER) | payer OTHER ==
[~2020-03-07] VITALS: Ht 167.6 cm; Wt 94.5 kg
--- OUTSIDE RECORDS SUMMARY | ~2020-03-07 | XMS | Encounter Summary ---
Demographics + + + | Address | [address] | | | [place] [address] | + + + | Home Phone | | + + + | Preferred Language | Unknown | + + + | Marital Status | Single | + + + | Yazidism Affiliation | Unknown | + + + | Race | Unknown | + + + | Ethnic Group | Unknown | + + + Author + + + | Author | [facility] | | | and Paulana | + + + | Organization | [facility] | | | and Paulana [...] Team Providers + +------+ + | Care Infantry Weapons Officer Name | Role | Phone | + +------+ + | Lyudmila Child CROOK OPERATOR | PCP | | + +------+ + Reason for Visit + + + | Reason | Comments | + + + | New Patient | | + + + | Gastroesophageal [...] | | Gastro-esoph | [address] | RECEIVING OPERATOR [address] | | | | | ageal reflux | [address] | [address] | | | | | disease | [place], | [address] | | | | | without | [place] [address] | [place], | | | | | esophagitis | Phone: | [place] [address] | | | | | Diarrhea, | [phone] | Phone: | | | | | unspecified | Fax: | [phone] | | | | | Nausea | [phone] | Fax: | | | | | Right upper | | [phone] | | | | | quadrant | | | | | | | pain | | | | | | | Procedures | | | | | | | CROOK OPERATOR OFFICE | | | | | | | VISIT | | | +--------+--------+ + + + + Encounter Details +--------+---------+ + + + | Date | Type | Department | Care Team | Description | +--------+---------+ + + + | 01/22/ | Office | [facility] | Jalil Jane | Diarrhea, | | 2018 | Visit | GASTROENTEROLOGY | MD Cosmo [address] | unspecified type | | | | [address] | [address] [place] | (Primary Dx); | | | | [address] [place], [place] | [place] [address] | Irritable bowel | | | | [address] | [phone] | syndrome with | | | | [phone] | | diarrhea | +--------+---------+ + + + Social History [...] + + + | Blood Pressure | 102/72 | 01/22/2019 2:42 PM | | | | | PDT | | + + + + + | Pulse | 99 | 01/22/2019 2:42 PM | | | | | PDT | | + + + + + | Temperature | 36.6 C (97.8 F) | 01/22/2019 2:42 PM | | | | | PDT | | + + + + + | Respiratory Rate | 16 | 01/22/2019 2:42 PM | | | | | PDT | | + + + + + | Oxygen Saturation | - | - | | + + + + + | Inhaled Oxygen | - | - | | | Concentration | | | | + + + + + | Weight | 90.4 kg (199 lb 4.7 | 01/22/2019 2:42 PM | | | | oz) | PDT | | + + + + + | Height | 167.6 cm (5' 6") | 01/22/2019 2:42 PM | | | | | PDT | | + + + + + | Body Mass Index | 32.17 | 01/22/2019 2:42 PM | | | | | PDT | | + + + + + documented in this encounter Patient Instructions Patient Instructions Jalil Jane MD - 01/22/2019 3:00 PM PDT1. Try cutting out da iry to see if there is improvement in your diarrhea 2. Take 1 imodium tablet (2mg) 30 minutes to each meal. If no improvement by 2 weeks let me know. Next option would be Bentyl. 3. Get lab and stool studies done. 4. Follow up in 3 months documented in this encounter Progress Notes Enid Reyes RN - 01/22/2019 3:00 PM PDTPatient advised Toshia Templeton is the contac t person at [facility] at to organize labs between patient and [facility]. Patient will go to [facility] to have Celiac drawn today. Spoke with Tia at [facility] this morning 01/23/19; advised we saw patient in clinic yesterday and will need time sensitive labs drawn; however, patient advised she would need assistance by someone at [facility] to assist in getting those labs to [facility]; rec ommended this be performed next week; will fax labs to [facility] today; Tia will advise Natalya jose aayde who is the individual in charge of patient cares at [facility]. Will follow up next week to ensure all parties are on board with obtaining labs. DALaingJalil MD - 01/22/2019 3:00 PM PDTFor matting of this note might be different from the original. Outpatient Gastroenterology Consult Note Date of Office Visit: 01/23/19 Referring Provider: Lyudmila Child NP [address] [place] [address] Providing Physician: Jalil Jane MD. Chief Complaint: New Patient and Gastroesophageal Reflux History of Present Illness Leah Muniz is a 18 y.o. female with DM1 and severe depression, current living i n a group facility for adults with MH disorders, who presents for evaluation of abdominal pa in and diarrhea. She has had type 1 DM since about the age of 4, she reports that her A1C has been >7 for ye ars. Her main complaint to day is diarrhea. She reports that it occurs mostly after meals, and u p to 3-5 times a day. Yesterday she had it after every meal. The diarrhea made her not want to eat. She hasn't tried any anti diarrhea medications. She gets her abdominal pain in the setting of diarrhea. The pain is in the lower abdomen an d feels crampy and dull. She gets bloating pain as well. Diarrhea occurs 10 days out of the month. The diarrhea started about 6 months. 6 months ago she lost her job. She has changed her diet since, saying it isn't as healthy a s it was. She is now living in a facilty for adults with severe MH disorders. Most of her me als are prepared there. Mostly the meals are pasta / carbs Denies any blood in her stools. Denies any nocturnal diarrhea. BRAT diet helps Constipation occurs rarely. Firm stools make her feel bloated. This occurs rarely, the last episode was 2 months ago. Denies early satiety but endorses bloating. No vomiting No known FH of CRC of IBD. She also reports that she has GERD. Has tried prilosec and zantac for 2 week periods, neith er helped much. Overall the heartburn is mild according to her. Denies any dysphagia. Endoscopic History none Review of Systems ROS A 12 point review of systems was conducted with the patient. Pertinent positives and negati ves listed per HPI Problem List Patient Active Problem List Diagnosis Anxiety Type 1 diabetes mellitus with hyperglycemia Major depressive disorder Past Medical History Past Medical History: Diagnosis Date Abdominal pain Anxiety Chronic recurrent sinusitis Depression with anxiety Diarrhea Dizziness Elevated liver enzymes GERD (gastroesophageal reflux disease) History of suicide attempt x6 Nausea Other specified extrapyramidal and movement disorders PTSD (post-traumatic stress disorder) Right upper quadrant pain Type 1 diabetes (HCC) Past Surgical History Past Surgical History: Procedure Laterality Date NASAL SEPTUM SURGERY 03/2018 Family History Family History Problem Relation Age of Onset Suicide Father Fibromyalgia Father Arthritis Father No known problems Sister No known problems Brother Diabetes Paternal Grandfather No known problems Brother Social History Social History Socioeconomic History Marital status: Single Spouse name: Not on file Number of children: Not on file Years of education: Not on file Highest education level: Not on file Tobacco Use Smoking status: Never Smoker Smokeless tobacco: Never Used Substance and Sexual Activity Alcohol use: Never Frequency: Never Drug use: Never Sexual activity: Yes Allergies Allergies No active allergies Intolerance No active intolerances/contraindications Medications Current Outpatient Medications on File Prior to Visit Medication Sig Dispense Refill acetaminophen-codeine 120-12 mg/5 mL solution take 10 milliliters by mouth at bedtime i f needed for 5 days 0 acetone, urine, test (KETOSTIX) strip 1 strip by Does not apply route as needed. albuterol (VENTOLIN HFA) 90 mcg/puff inhaler Inhale 2 puffs into the lungs every 6 hour s as needed for Wheezing. cholecalciferol (VITAMIN D-3) 2000 units TABS Take 2,000 Units by mouth Daily. diphenhydrAMINE (BENADRYL) 25 mg tablet Take 25 mg by mouth every 6 hours as needed for Itching. diphenhydrAMINE HCl (BENADRYL ALLERGY PO) Take by mouth as needed. Etonogestrel (NEXPLANON) 68 MG IMPL Inject 68 mg under the skin once. fexofenadine (ARTURO) 180 mg tablet Take 180 mg by mouth Daily. glucose 4-6 GM-MG CHEW Take by mouth Every 30 minutes as needed. glucose blood test strips (FREESTYLE LITE) strip by In Vitro route as needed. guaiFENesin-codeine (ROBITUSSIN AC) 100-10 mg/5 mL liquid Take 5-10 mLs by mouth every 4 hours as needed for Cough. Hypertonic Nasal Wash (SINUS RINSE KIT NA) by Nasal route. insulin aspart (NOVOLOG FLEXPEN) 100 units/mL injection pen Inject under the skin 3 ti mes daily (before meals). insulin glargine (BASAGLAR KWIKPEN) 100 units/mL injection (pen) Inject under the skin nightly. insulin glargine (LANTUS) 100 units/mL injection (vial) Inject under the skin nightly. Insulin Pen Needle (BD PEN NEEDLE ARNOLD U/F) 32G X 4 MM MISC by Does not apply route. Menthol (COUGH DROPS) 5 MG LOZG Take [...] file prior to visit. Physical Exam Vitals:BP 102/72 | Pulse 99 | Temp 36.6 C (97.8 F) (Temporal) | Resp 16 | Ht 1.676 m (5' 6") | Wt 90.4 kg (199 lb 4.7 oz) | BMI 32.17 kg/m General: This is a well-developed,well-nurished female in no apparent distress, alert and o riented x 3. Head: Reveals normocephalic, atraumatic Eyes: Sclera anicteric, normal conjunctiva Mouth: Oropharynx is clear without obstruction. No oral lesion. Lungs: Clear to auscultation without rales or wheezes. Cardiac: Reveals regular rate and rhythm with normal S1 and S2 and no murmurs, rubs or gall ops. Abdomen: Soft and TTP in the lower abdomen bilaterally without masses or organmegaly. No g uarding or rebound pain. Normoactive bowel sounds. Extremities: Without cyanosis, clubbing or edema. Neuro: Awake, alert, oriented x3. Skin: Warm and dry, no erythematous rash. Labs Normal CBC and CMP Imaging I reviewed her outside records. In summary, she had a normal HIDA 11/18/18 and US abdomen , done at [facility]'s Assessment and Plan This is a 18 year old F with depression and DM1, who presents for diarrhea with abdominal p ain. Her symptoms are typical for IBS-D per [place] criteria. She lacks any alarm symptoms for IBD. I would like to screen for celiac disease as she is at increased risk given her DM1. Also r ecommend that she check stool studies for infectious causes and a lactoferrin. Presently, a colonoscopy is not indicated. She has not tried any specific medication or therapy for her diarrhea. I recommended that she start imodium 2mg TID 30 min prior to each meal. If ineffective, th en would try bentyl next. I asked her to try to eliminate dairy to see if there is any improvement in her symptoms. She is unlikely to be able to do a more restrictive diet due to her living situation. Her symptoms are not typical of gastroparesis, so I don't think a GES is needed. ICD-10-CM ICD-9-CM 1. Diarrhea, unspecified type R19.7 787.91 Tissue Transglutaminase (IgA + IgG) 2. Irritable bowel syndrome with diarrhea K58.0 564.1 loperamide (IMODIUM) 2 mg capsule Follow up: Return in about 3 months (around 04/24/2019). CC: Lyudmila Child NP [address] [place] [address] Lyudmila OsmanAlexys Child, [id number] [place] [address] Portions of this chart may have been created with [employer] voice recognition software. Occasi onal wrong-word or sound-alike substitutions may have occurred due to the inherent ansari itations of voice recognition software. Please read the chart carefully and recognize, using context, where these substitutions have occurred documented in this encounter Plan of Treatment + + +--------+ + + | Name | Type | Priori | Associated Diagnoses | Order Schedule | | | | ty | | | + + +--------+ + + | Helicobacter pylori | Microbiolog | Routin | Diarrhea, | Expected: 01/23/2019 | | Ag, EIA, Stool | y | e | unspecified type | (Approximate), | | | | | Irritable bowel | Expires: 01/24/2020 | | | | | syndrome with | | | | | | diarrhea | | + + +--------+ + + | Lactoferrin, fecal, | Lab | Routin | Diarrhea, | Expected: 01/23/2019 | | quantitative | | e | unspecified type | (Approximate), | | | | | Irritable bowel | Expires: 01/24/2020 | | | | | syndrome with | | | | | | diarrhea | | + + +--------+ + + | Culture, Stool | Microbiolog | Routin | Diarrhea, | Expected: 01/23/2019 | | | y | e | unspecified type | (Approximate), | | | | | Irritable bowel | Expires: 01/23/2020 | | | | | syndrome with | | | | | | diarrhea | | + + +--------+ + + | Giardia Ag, EIA, | Microbiolog | Routin | Diarrhea, | Expected: 01/23/2019 | | Stool | y | e | unspecified type | (Approximate), | | | | | Irritable bowel | Expires: 01/23/2020 | | | | | syndrome with | | | | | | diarrhea | | + + +--------+ + + documented as of this encounter Results Tissue Transglutaminase (IgA + IgG) (01/22/2019 3:50 PM PDT) + + + + + + | Component | Value | Ref Range | Performed | Pathologist | | | | | At | Signature | + + + + + + | Tissue | <2Comment: | 0 - 3 U/mL | REFERENCE | | | Transglutam | | | LAB [facility] | | | inase IgA | Negative | | - [place]KR | | | | 0 - 3 | | | | | | | | | | | | Weak Positive | | | | | | 4 - 10 | | | | | | | | | | | | Positive | | | | | | >10 Tissue | | | | | | Transglutaminase (tTG) | | | | | | has been identified as | | | | | | the endomysial antigen. | | | | | | Studies have demonstr- | | | | | | ated that endomysial | | | | | | IgA antibodies have over | | | | | | 99% specificity for | | | | | | gluten sensitive | | | | | | enteropathy. | | | | + + + + + + | Tissue | <2Comment: | 0 - 5 U/mL | REFERENCE | | | Transglutam | | | LAB [facility] | | | inase IgG | Negative | | - BKR | | | | 0 - 5 | | | | | | | | | | | | Weak Positive | | | | | | 6 - 9 | | | | | | | | | | | | Positive | | | | | | >9 | | | | + + + + + + + + | Specimen | + + | Blood | + + + + + | Narrative | Performed At | + + + | Performed at: [facility] - [facility] [address], | REFERENCE LAB | | [place] [id number] Associate Director Of Nursing: Samy Fofana MD, Phone: | [place] | | [phone] | | + + + + + + + + | Performing | Address | City/State/Zipcode | Phone Number | | Organization | | | | + + + + + | REFERENCE LAB | [address] | [place], [place] | [phone] | | [facility] | [address] | [address] | | + + + + + documented in this encounter Visit Diagnoses + + | Diagnosis | + + | Diarrhea, unspecified type - Primary | + + | Irritable bowel syndrome with diarrhea Irritable bowel syndrome | + + documented in this encounter
--- OUTSIDE RECORDS SUMMARY | ~2020-03-07 | XMS | Encounter Summary ---
Demographics + + + | Address | [address] | | | [place] [address] | + + + | Home Phone [...] Author | [facility] | | | and Paulana | + + + | Organization | [facility] | | | and Paulana [...] Team Providers + +------+ + | Care Railroad Dining Car Steward/Stewardess Name | Role | Phone | + +------+ + | Lyudmila Child NP | PCP | | + +------+ + Reason for Visit +--------+--------+ + | Reason | Onset | Comments | | | Date | | +--------+--------+ + | Other | 01/26/ | Medication question | | | 2019 | | +--------+--------+ + Encounter Details +--------+ + + + + | Date | Type | Department | Care Team | Description | +--------+ + + + + | 01/26/ | Telephone | [facility] | Jalil Jane | Other (Medication | | 2019 | | GASTROENTEROLOGY | MD Cosmo [address] | question) | | | | [address] | [address] [place] | | | | | [address] [place], [place] | [place] [address] | | | | | [address] | [phone] | | | | | [phone] | | | +--------+ + + + [...] + + documented as of this encounter Miscellaneous Notes Telephone Encounter - Stefany Polanco Medical Assistant - 01/26/2019 4:42 PM PDTNotified hilda beebe that her celiac lab were negative. Patient would like to confirm if she needs to take Loperamide 3 x daily before meals. Confirmed patient that she will need to take 1 capsule b y mouth 3 x times daily before meals. Will need to hold if constipated. Patient verbalized u nderstanding. Confirmed with Dr. Jane. elephone Encounter - Stefany Polanco Medical Assistant - 10/2018 4:41 PM PDT----- Message from Jalil Jane MD sent at 01/26/2019 15:43 PDT ---- - Please let her know that the celiac lab was negative. thanks elephone Encounter - Alvarez Whelan - 01/26/2019 3:24 PM PDTName of Caller: Toshia from [place] with [facility] Name of Patient: Leah Muniz Reason for call: Toshia, patient's care provider had questions regards patient Loperamide me dication. Routing to clinical staff. If Toshia is not in the office she stated that she will leave notes for her coworkers to follow through with the medication. Provider/Nurse: Dr. Jane/ [place] Call back number: documented in this encou nter Plan of Treatment Not on filedocumented as of this encounter Visit Diagnoses Not on filedocumented in this encounter"
--- OUTSIDE RECORDS SUMMARY | ~2020-03-07 | XMS | Clinical Summary ---
Demographics + + + | Address | [address] | | | [place] [address] | + + + | Home Phone | | + + + | Preferred Language | Unknown | + + + | Marital Status | Single | + + + | Sabianist Affiliation | Unknown | + + + | Race | Unknown | + + + | Ethnic Group | Unknown | + + + Author + + + | Author | [facility] | | | and Paulana | + + + | Organization | [facility] | | [...] Team Providers + +------+ + | Care Soaker Helper Name | Role | Phone | + +------+ + | Lyudmila Child EMERGENCY MEDICAL DISPATCHER | PCP | | + +------+ + [...] + + + | Overview: Problem List Garden Consultant | + + + + + | [...] | [employer] | [facility] | [id number] | 04/28/20 | [phone] | | Medica [...] Self | [birth year] | [address] | | [place] | al/Fam | | 2001 | [phone] | [place] [address] | | | leilani | | | 8 (Home) | | + +--------+ +--------+ + + Advance Directives + + + + + | Type | Date Recorded | Patient | Explanation | | | | Electric Screw Driver Operator | | + + + + + | Power of | | | | | Chairman Ceo | | | | + + + + + | Advance | | | | | Directive | | | | + + + + +
--- OUTSIDE RECORDS SUMMARY | ~2020-03-07 | XMS | Encounter Summary ---
Demographics + + + | Address | [address] | | | [place] [address] | + + + | Home Phone [...] + | Author | [facility] | | | and [place]ana | + + + | Organization | [facility] [...] Team Providers + +------+ + | Care Garment Alteration Examiner Name | Role | Phone | [...] | | | [address] [facility] | [place]. | | | | | [address] [place] [address] | [place] [address] | | | | | [address] | | | | | | [phone] | | | +--------+ + + + [...]
--- OUTSIDE RECORDS SUMMARY | ~2020-03-07 | XMS | Encounter Summary ---
Demographics + + + | Address | [address] | | | [place] [address] | + + + | Home Phone [...] | [facility] | | | and [place]ana | + + + | Organization | [facility] | | | and [...] Team Providers + +------+ + | Care Cosmetic Sales Consultant Name | Role | Phone | + +------+ + | Lyudmila Child BROILER CHEF OR COOK | PCP | | + +------+ + [...] | | Gastro-esoph | [address] | MEXICAN FOOD MAKER [address] | | | | | ageal reflux | [address] | [address] | | | | | disease | [place], | [address] | | | | | without | [place] [address] | [place], | | | | | esophagitis | Phone: | [place] [address] | | | | | Diarrhea, | [phone] | Phone: | | | | | unspecified | Fax: | [phone] | | | | | Nausea | [phone] | Fax: | | | | | Right upper | | [phone] | | | | | quadrant | | | | | | | pain | | | | | | | Procedures | | | | | | | BROILER CHEF OR COOK OFFICE | | | | | | | VISIT | | | +--------+--------+ + + + + Encounter Details +--------+---------+ + + + | Date | Type | Department | Care Team | Description | +--------+---------+ + + + | 04/28/ | Office | [facility] | Jalil Jane | Diarrhea, | | 2019 | Visit | GASTROENTEROLOGY | MD Cosmo [address] | unspecified type | | | | [address] | [address] [place] | (Primary Dx); | | | | [address] [place], [place] | [place] [address] | Gastroesophageal | | | | [address] | [phone] | reflux disease, | | | | [phone] | | esophagitis presence | | | [...] or fail to improve. CC: Lyudmila Child, BROILER CHEF OR COOK [address] [place] [address] Portions of this chart may have been created with [employer] voice recognition software. Occasi onal wrong-word or [...]
--- OUTSIDE RECORDS SUMMARY | ~2020-03-07 | XMS | Encounter Summary ---
Demographics + + + | Address | [address] | | | [place] [address] | + + + | Home Phone [...] Author | [facility] | | | and [place]ana | + + + | Organization | [facility] | | | and [...] Team Providers + +------+ + | Care Attorney At Law Name | Role | Phone | + [...] + + | 02/04/ | Telephone | [facility] | Jalil Jane | Medication Orders | | 2019 | | GASTROENTEROLOGY | MD Cos[address] | | | | | [address] | [address] [place] | | | | | [address] [place], [place] | [place] [address] | | | | | [address] | [phone] | | | | | [phone] | | | +--------+ + + + [...] refills. Re faxed back to Benita at [facility] [phone] . elephone Encmadhavi prince - Enid Reyes RN - 02/06/2019 8:36 AM PDTCalled Benita to advise the fax chandler d not been received yet; she was not in the office yet; provided her alternative fax number. elephone Encount er - Enid Reyes RN - 02/05/2019 12:17 PM PDTReturned call to Benita at [facility]; during our call we lost contact; there [...] change to orders and will fax to [facility] office for signature. She states patient does not eat on a regular basis and would like to modify and add prn to order. Provided our fax number and will await modification requestEle ctronically signed by Enid Reyes RN at 02/05/2019 12:30 PM PDTTelephone Encounter - Kyleigh Major - 02/04/2019 11:46 AM Momo, Director of Health Services for [facility] called in regards to an order received [...] like clarification. She gave her cell phone [phone] please call her when available, Thank you documented in this encounter Plan of Treatment Not on filedocumented as of this encounter Visit Diagnoses Not on filedocumented in this encounter"
[~2020-03-07 21:23] MED LIST changes: +BASAGLAR K100 UNIT/1; +NOVOLOG MI100 UNIT/2 SUB-Q; +REXULTI0.25 MG PO; +[UNRECOGNIZED DRUG - SUPPLY] MISC
== END 2020-03-07 21:55 | disposition home or self-care (01) ==
LOC: ED 21:23
DX: R22.9 Localized swelling, mass and lump, unspecified (principal); E10.9 Type 1 diabetes mellitus without complications; F41.9 Anxiety disorder, unspecified; Z88.8 Allergy status to other drugs, medicaments and biological substances; Z91.041 Radiographic dye allergy status; Z79.899 Other long term (current) drug therapy
CPT/HCPCS: 99283; Q0163

== ENCOUNTER 2020-03-12 11:23 | Emergency (ER) | payer OTHER ==
[~2020-03-12] VITALS: Ht 167.6 cm; Wt 94.5 kg
== END 2020-03-12 13:25 | disposition home or self-care (01) ==
LOC: ED 11:23
DX: R45.851 Suicidal ideations (principal); E10.9 Type 1 diabetes mellitus without complications; F41.9 Anxiety disorder, unspecified; Z88.8 Allergy status to other drugs, medicaments and biological substances; Z91.041 Radiographic dye allergy status; Z79.899 Other long term (current) drug therapy; Z79.4 Long term (current) use of insulin
CPT/HCPCS: 80053; 80176; 81001; 84443; 84703; 85025; 99285; G0480

== ENCOUNTER 2020-04-18 14:23 | Emergency (ER) | payer OTHER ==
[~2020-04-18] VITALS: Ht 167.6 cm; Wt 94.5 kg
--- OUTSIDE RECORDS SUMMARY | ~2020-04-18 | XMS | Clinical Summary ---
Demographics + + + | Address | [address] | | | [place] [address] | + + + | Home Phone | | + + + | Preferred Language | Unknown | + + + | Marital Status | Single | + + + | Mandaeism Affiliation | Unknown | + + + | Race | Unknown | + + + | Ethnic Group | Unknown | + + + Author + + + | Author | [facility] | | | and Paulana | + + + | Organization | [facility] | | | and Paulana [...] Team Providers + +------+ + | Care Clinical Reviewer Name | Role | Phone | + +------+ + | Lyudmila Child INDUSTRIAL PARAMEDIC | PCP | | + +------+ + [...] + + + | Overview: Problem List Cadmium Plater | + + + + + | [...] on file | | + + + Last Filed Vital Signs + [...] Health Maintenance | Due Date | Last | Comments | | | | Done | | + + + + + | Hepatitis C | | | | | Screening | 0 | | | + + + + + | Med Mgmt: Cr | | | | | | 0 | | | + + + + + | Med Mgmt: HBA1C | | | | | | 0 | | | + + + + + | Med Mgmt: Vit D | | | | | | 0 | | | + + + + + | Med Mgmt: eGFR | | | | | | 0 | | | + + + + + | Medication | | | | | Management | 0 | | | + + + + [...] (1 - | | | | | 2-dose series) | 1 | | | + + + + [...] + + | Vaccine: Influenza | | 06/23/20 | | | (#1) | 0 | 18, | | | | | 06/23/20 | | | | | 18, | | | | | 07/09/20 | | | | | 17, | | | | | Addition | | | | | al | | | | | history | | | | | exists | | + + + + + | Vaccine: | | 03/06/20 | | | Dtap/Tdap/Td (7 - | 1 | 11, | | | Td) | | 05/22/20 | | | | | 05, | | | | | 07/01/20 | | | | | 02, | | | | | Addition | | | | | al | | | | | history | | | | | exists [...] | [facility] [facility] | [facility] | [id number] | 04/28/20 | [phone] | | Medica [...] | 09/[birth year]/ | | [address] | | [address] | marcelo/Doc | | 2000 | [phone] | [place] [address] | | | leilani | | | 8 (Home) | | + +--------+ +--------+ + + Advance Directives + + + + + | Type | Date Recorded | Patient | Explanation | | | | Technology Integration Specialist | | + + + + + | Power of | | | | | Button Tufting Machine Operator | | | | + + + + + | Advance | | | | | Directive | | | | + + + + +
--- OUTSIDE RECORDS SUMMARY | ~2020-04-18 | XMS | Encounter Summary ---
Demographics + + + | Address | [address] | | | [place] [address] | + + + | Home Phone | | + + + | Preferred Language | Unknown | + + + | Marital Status | Single | + + + | Orthodox Affiliation | Unknown | + + + | Race | Unknown | + + + | Ethnic Group | Unknown | + + + Author + + + | Author | [facility] | | | and Paulana | + + + | Organization | [facility] [...] Team Providers + +------+ + | Care Household Coordinator Name | Role | Phone | + +------+ + | Lyudmila Child TEMPLATE LAYOUT WORKER | PCP | | + +------+ [...] | | Gastro-esoph | [address] | PROTECTIVE OFFICER [address] | | | | | ageal reflux | [address] | [address] | | | | | disease | [place], | [address] | | | | | without | [place] [address] | [place], | | | | | esophagitis | Phone: | [place] [address] | | | | | Diarrhea, | [phone] | Phone: | | | | | unspecified | Fax: | [phone] | | | | | Nausea | [phone] | Fax: | | | | | Right upper | | [phone] | | | | | quadrant | | | | | | | pain | | | | | | | Procedures | | | | | | | TEMPLATE LAYOUT WORKER OFFICE | | | | | | | VISIT | | | +--------+--------+ + + + + Encounter Details +--------+---------+ + + + | Date | Type | Department | Care Team | Description | +--------+---------+ + + + | 04/28/ | Office | [facility] | Jalil Jane | Diarrhea, | | 2019 | Visit | GASTROENTEROLOGY | MD Cosmo [address] | unspecified type | | | | [address] | [address] [place] | (Primary Dx); | | | | [address] [place], [place] | [place] [address] | Gastroesophageal | | | | [address] | [phone] | reflux disease, | | | | [phone] | | esophagitis presence | | | [...] or fail to improve. CC: Lyudmila Child, TEMPLATE LAYOUT WORKER [address] [place] [address] Portions of this chart may have been created with [employer] voice recognition software. Occasi onal wrong-word or [...]
--- OUTSIDE RECORDS SUMMARY | ~2020-04-18 | XMS | Encounter Summary ---
Demographics + + + | Address | [address] | | | [place] [address] | + + + | Home Phone | | + + + | Preferred Language | Unknown | + + + | Marital Status | Single | + + + | Sikhism Affiliation | Unknown | + + + | Race | Unknown | + + + | Ethnic Group | Unknown | + + + Author + + + | Author | [facility] | | | and Paulana | + + + | Organization | [facility] | | | and Paulana | [...] Team Providers + +------+ + | Care Booker Name | Role | Phone | + [...] | | | [address] [facility] | Enid Mccord. | | | | | [address] | [place] [address] | | | | | [address] | | | | | | [phone] | | | +--------+ + + + [...]
--- OUTSIDE RECORDS SUMMARY | ~2020-04-18 | XMS | Encounter Summary ---
Demographics + + + | Address | [address] | | | [place] [address] | + + + | Home Phone [...] | [facility] | | | and Paulana | + + + | Organization | [facility] | | | and [...] Team Providers + +------+ + | Care Iron Worker Apprentice Name | Role | Phone | + +------+ + | Lyudmila Child 2 YEAR [employer] PRESCHO[employer] TEACHER | PCP | | + +------+ + [...] | | Gastro-esoph | [address] | LUMBER GRADER [address] | | | | | ageal reflux | [address] | [address] | | | | | disease | [place], | [address] | | | | | without | [place] [address] | [place], | | | | | esophagitis | Phone: | [place] [address] | | | | | Diarrhea, | [phone] | Phone: | | | | | unspecified | Fax: | [phone] | | | | | Nausea | [phone] | Fax: | | | | | Right upper | | [phone] | | | | | quadrant | | | | | | | pain | | | | | | | Procedures | | | | | | | 2 YEAR OLDS PRESCHOOL TEACHER OFFICE | | | | | | | VISIT | | | +--------+--------+ + + + + Encounter Details +--------+---------+ + + + | Date | Type | Department | Care Team | Description | +--------+---------+ + + + | 01/22/ | Office | [facility] | Jalil Jane | Diarrhea, | | 2018 | Visit | GASTROENTEROLOGY | MD Cosmo [address] | unspecified type | | | | [address] | [address] [place] | (Primary Dx); | | | | [address] [place], [place] | [place] [address] | Irritable bowel | | | | [address] | [phone] | syndrome with | | | | [phone] | | diarrhea | +--------+---------+ + + [...] is the contac t person at [facility] at to organize labs between patient and [place]. Patient will go to [facility] to have Celiac drawn today. Spoke with Tia at [facility] this morning 01/23/19; advised we saw patient in clinic yesterday and will need time sensitive labs drawn; however, patient advised she would need assistance by someone at [place] to assist in getting those labs to [place]; rec ommended this be performed next week; will fax labs to [place] today; Tia will advise Natalya jose aayde [...] 01/23/19 Referring Provider: Lyudmila Child NP [address] [place] [address] Providing Physician: Jalil Jane MD. Chief Complaint: [...] 11/18/18 and US abdomen , done at [facility]'s Assessment and Plan This is a 18 year old F with depression and DM1, who presents for diarrhea with abdominal p ain. Her symptoms are typical for IBS-D per [place] criteria. She lacks any alarm symptoms for [...] (around 04/24/2019). CC: Lyudmila Child NP [address] [place] [address] Lyudmila OsmanAlexys Child, [id number] [place] [address] Portions of this chart may have been created with [employer] voice recognition software. Occasi onal wrong-word or [...] | REFERENCE LAB | | [address] [id number] Santa'S Helper: Samy Fofana MD, Phone: | [place] | | [phone] | | + + + + + + + + | Performing | Address | City/State/Zipcode | Phone Number | | Organization | | | | + + + + + | REFERENCE LAB | [address] | [place], [place] | [phone] | | [facility] | [address] | [address] | | + + + + + documented in this encounter Visit Diagnoses + + | Diagnosis | + + | Diarrhea, unspecified type - Primary | + + | Irritable bowel syndrome with diarrhea Irritable bowel syndrome | + + documented in this encounter
--- OUTSIDE RECORDS SUMMARY | ~2020-04-18 | XMS | Encounter Summary ---
Demographics + + + | Address | [address] | | | [place] [address] | + + + | Home Phone | | + + + | Preferred Language | Unknown | + + + | Marital Status | Single | + + + | Sabianist Affiliation | Unknown | + + + | Race | Unknown | + + + | Ethnic Group | Unknown | + + + Author + + + | Author | [facility] | | | and Paulana | + + + | Organization | [facility] | | | and Paulana [...] Team Providers + +------+ + | Care Executive Associate Name | Role | Phone | + [...] + + | 02/04/ | Telephone | [facility] | Jalil Jane | Medication Orders | | 2019 | | GASTROENTEROLOGY | MD Cosmo [address] | | | | | [address] | [address] [place] | | | | | [address] [place], [place] | [place] [address] | | | | | [address] | [phone] | | | | | [phone] | | | +--------+ + + + [...] refills. Re faxed back to Benita at [facility] [phone] . elephone Encmadhavi prince - Enid Reyes RN - 02/06/2019 8:36 AM PDTCalled Benita to advise the fax chandler d not been received yet; she was not in the office yet; provided her alternative fax number. elephone Encount er - Enid Reyes RN - 02/05/2019 12:17 PM PDTReturned call to Benita at [facility]; during our call we lost contact; [...] change to orders and will fax to [facility] office for signature. She states patient does not eat on a regular basis and would like to modify and add prn to order. Provided our fax number and will await modification requestEle ctronically signed by Enid Reyes RN at 02/05/2019 12:30 PM PDTTelephone Encounter - Kyleigh Major - 02/04/2019 11:46 AM Momo, Director of Health Services for [facility] called in regards to an order [...] like clarification. She gave her cell phone [phone] please call her when available, Thank you documented in this encounter Plan of Treatment Not on filedocumented as of this encounter Visit Diagnoses Not on filedocumented in this encounter"
--- OUTSIDE RECORDS SUMMARY | ~2020-04-18 | XMS | Encounter Summary ---
Demographics + + + | Address | [address] | | | [place] [address] | + + + | Home Phone | | + + + | Preferred Language | Unknown | + + + | Marital Status | Single | + + + | Sabianism Affiliation | Unknown | + + + | Race | Unknown | + + + | Ethnic Group | Unknown | + + + Author + + + | Author | [facility] | | | and Paulana | + + + | Organization | [facility] | | | and [...] Team Providers + +------+ + | Care Partnership Development Manager Name | Role | Phone | [...] + | 01/26/ | Telephone | [facility] | Jalil Jane | Other (Medication | | 2019 | | GASTROENTEROLOGY | MD Cosmo [address] | question) | | | | [address] | [address] [place] | | | | | [address] [place], [place] | [place] [address] | | | | | [address] | [phone] | | | | | [phone] | | | +--------+ + + + [...] 3:24 PM PDTName of Caller: Toshia from [place] with [facility] Name of Patient: Leah Muniz [...]
[2020-04-18] MEDS ORDERED: PROPRANOLOL HCL10 MG PO (14:48)
--- NOTE | 2020-04-20 11:15 | NUR ---
Covid results faxed to [facility] where pt was discharged. Results faxed to Elisa.
== END 2020-04-19 08:56 | disposition short-term general hospital (02) ==
LOC: ED 14:23
DX: R45.851 Suicidal ideations (principal); E10.9 Type 1 diabetes mellitus without complications; Z20.828 Contact with and (suspected) exposure to other viral communicable diseases; F41.9 Anxiety disorder, unspecified; Z91.041 Radiographic dye allergy status; Z79.899 Other long term (current) drug therapy
CPT/HCPCS: 80053; 80176; 81001; 84443; 84703; 85025; 99285; C9803; G0480

== ENCOUNTER 2020-05-06 16:55 | Emergency (ER) | payer OTHER ==
[~2020-05-06] VITALS: Ht 167.6 cm; Wt 94.5 kg
--- OUTSIDE RECORDS SUMMARY | ~2020-05-06 | XMS | Encounter Summary ---
Demographics + + + | Address | [address] | | | [place] [address] | + + + | Home Phone | | + + + | Preferred Language | Unknown | + + + | Marital Status | Single | + + + | Uatsdin Affiliation | Unknown | + + + | Race | Unknown | + + + | Ethnic Group | Unknown | + + + Author + + + | Author | [facility] | | | and Paulana | + + + | Organization | [facility] | | | and Paulana [...] Team Providers + +------+ + | Care Pot Fluxer Name | Role | Phone | + +------+ + | Lyudmila Child GALVANIZING POT RUNNER | PCP | | + +------+ + [...] ogunruly | | Lyudmila Osman NP | [place], | | | | | Gastro-esoph | [address] | GEODESY TEACHER [address] | | | | | ageal reflux | [address] | [address] | | | | | disease | [place], | [address] | | | | | without | [place] [address] | [place], | | | | | esophagitis | Phone: | [place] [address] | | | | | Diarrhea, | [phone] | Phone: | | | | | unspecified | Fax: | [phone] | | | | | Nausea | [phone] | Fax: | | | | | Right upper | | [phone] | | | | | quadrant | | | | | | | pain | | | | | | | Procedures | | | | | | | GALVANIZING POT RUNNER OFFICE | | | | | | | VISIT | | | +--------+--------+ + + + + Encounter Details +--------+---------+ + + + | Date | Type | Department | Care Team | Description | +--------+---------+ + + + | 01/22/ | Office | [facility] | Jalil Jane | Diarrhea, | | 2018 | Visit | GASTROENTEROLOGY | MD Cosmo [address] | unspecified type | | | | [address] | [address] [place] | (Primary Dx); | | | | [address] [place], [place] | [place] [address] | Irritable bowel | | | | [address] | [phone] | syndrome with | | | | [phone] | | diarrhea | +--------+---------+ + + [...] [place] is the contac t person at [facility] at to organize labs between patient and [place]. Patient will go to [facility] to have Celiac drawn today. Spoke with Tia at [facility] this morning 01/23/19; advised we saw patient in clinic yesterday and will need time sensitive labs drawn; however, patient advised she would need assistance by someone at [place] to assist in getting those labs to [place]; rec ommended this be performed next week; will fax labs to [place] today; Tia will advise Natalya jose aayde who is the individual in charge of patient cares at [facility]. Will follow up next week to ensure all parties are on board with obtaining labs. DALaingJalil MD - 01/22/2019 3:00 PM PDTFor matting of this note might be different from the original. Outpatient Gastroenterology Consult Note Date of Office Visit: 01/23/19 Referring Provider: Lyudmila Child NP [address] [place] [address] Providing Physician: Jalil Jane MD. Chief Complaint: [...] 11/18/18 and US abdomen , done at [facility]'s Assessment and Plan This is a 18 year old F with depression and DM1, who presents for diarrhea with abdominal p ain. Her symptoms are typical for IBS-D per [place] criteria. She lacks any alarm symptoms for [...] 04/24/2019). CC: Lyudmila Child NP [address] [place] [address] Lyudmila OsmanAlexys Child, [address] [place] [address] Portions of this chart may have been created with [employer] voice recognition software. Occasi onal wrong-word or [...] | REFERENCE LAB | | [address] [id number] Certified Ophthalmic Surgical Assistant: Samy Fofana MD, Phone: | [place] | | [phone] | | + + + + + + + + | Performing | Address | City/State/Zipcode | Phone Number | | Organization | | | | + + + + + | REFERENCE LAB | [address] | [place], [place] | [phone] | | [facility] | [address] | [address] | | + + + + + documented in this encounter Visit Diagnoses + + | Diagnosis | + + | Diarrhea, unspecified type - Primary | + + | Irritable bowel syndrome with diarrhea Irritable bowel syndrome | + + documented in this encounter
--- OUTSIDE RECORDS SUMMARY | ~2020-05-06 | XMS | Encounter Summary ---
Demographics + + + | Address | [address] | | | [place] [address] | + + + | Home Phone | | + + + | Preferred Language | Unknown | + + + | Marital Status | Single | + + + | Jewish Affiliation | Unknown | + + + | Race | Unknown | + + + | Ethnic Group | Unknown | + + + Author + + + | Author | [facility] | | | and Paulana | + + + | Organization | [facility] | | | and Paulana [...] Team Providers + +------+ + | Care Aerobics Instructor Name | Role | Phone | + +------+ + | Lyudmila Child NP | PCP | | + +------+ + Reason for Visit + +--------+ + | Reason | Onset | Comments | | | Date | | + +--------+ + | Medication Orders | 02/04/ | | | | 2019 | | + +--------+ + Encounter Details +--------+ + + + + | Date | Type | Department | Care Team | Description | +--------+ + + + + | 02/04/ | Telephone | [facility] | Jalil Jane | Medication Orders | | 2019 | | GASTROENTEROLOGY | MD Cos[address] | | | | | [address] | [address] [place] | | | | | [address] [place], [place] | [place] [address] | | | | | [address] | [phone] | | | | | [phone] | | | +--------+ + + + [...] this encounter Miscellaneous Notes Telephone Encounter - Enid Reyes RN - 02/09/2019 1:14 PM PDTFaxed received with adjusted rx of Imodium 1 cap by mouth tid 30 min prior to meals if possible for loose stool s; prn 16 mg in 24 hrs including total of all. Hold if complains of constipation or states no BM for 2 days. #90 with 5 refills. Re faxed back to Benita at [facility] [phone] . elephone Encmadhavi prince - Enid Reyes RN - 02/06/2019 8:36 AM PDTCalled Benita to advise the fax chandler d not been received yet; she was not in the office yet; provided her alternative fax number. elephone Encount er - Enid Reyes RN - 02/05/2019 12:17 PM PDTReturned call to Benita at [facility]; during our call we lost contact; there was discussion prior to the call being dropped about the Imodium script Dr. Jane had written; advised pt to take 2 mg three times daily 30 minutes before meals; because she is in a facility much like a foster home they ne ed more specific orders; Benita would like to propose a change to orders and [facility]. She states patient does not eat on a regular basis and would like to modify and add prn to order. Provided our fax number and will await modification requestEle ctronically signed by Enid Reyes RN at 02/05/2019 12:30 PM PDTTelephone Encounter - Kyleigh Major - 02/04/2019 11:46 AM Momo, Director of Health Services for [facility] called in regards to an order received electronically for patient for the L operamide (Immodium) It says it was 2mg capsule, take 1 capsule 3x/day (before a meal) not t o exceed 16 mg a day and to hold if constipated. So Benita's concerns are 1) What if patient is not eating meals 2) What if patient does no t relay or tell honestly if she is constipated 2b) what is constipated in our book, 1 day no bm, 2 days or 3 days? They need exact definition for this 3) She mentioned PRN and then sona n if patient took this 3 times a day it would equal 6mg so she would like clarification. She gave her cell phone [phone] please call her when available, Thank you documented in this encounter Plan of Treatment Not on filedocumented as of this encounter Visit Diagnoses Not on filedocumented in this encounter"
--- OUTSIDE RECORDS SUMMARY | ~2020-05-06 | XMS | Encounter Summary ---
Demographics + + + | Address | [address] | | | [place] [address] | + + + | Home Phone [...] | Author | [facility] | | | and Paulana | + + + | Organization | [facility] | | | and [...] Team Providers + +------+ + | Care Locomotive Boilermaker Name | Role | Phone | + [...] | | | [address] [facility] | Enid Mccord. | | | | | [address] | [place] [address] | | | | | [address] | | | | | | [phone] | | | +--------+ + + + [...]
--- OUTSIDE RECORDS SUMMARY | ~2020-05-06 | XMS | Encounter Summary ---
Demographics + + + | Address | [address] | | | [place] [address] | + + + | Home Phone | | + + + | Preferred Language | Unknown | + + + | Marital Status | Single | + + + | Evangelical Affiliation | Unknown | + + + | Race | Unknown | + + + | Ethnic Group | Unknown | + + + Author + + + | Author | [facility] | | | and Paulana | + + + | Organization | [facility] | | | and Paulana [...] Team Providers + +------+ + | Care Institutional Research Director Name | Role | Phone | + +------+ + | Lyudmila Child HEALTH AND SAFETY TECH | PCP | | + +------+ + [...] | | Gastro-esoph | [address] | HEATING AND COOLING TECHNICIAN [address] | | | | | ageal reflux | [address] | [address] | | | | | disease | [place], | [address] | | | | | without | [place] [address] | [place], | | | | | esophagitis | Phone: | [place] [address] | | | | | Diarrhea, | [phone] | Phone: | | | | | unspecified | Fax: | [phone] | | | | | Nausea | [phone] | Fax: | | | | | Right upper | | [phone] | | | | | quadrant | | | | | | | pain | | | | | | | Procedures | | | | | | | HEALTH AND SAFETY TECH OFFICE | | | | | | | VISIT | | | +--------+--------+ + + + + Encounter Details +--------+---------+ + + + | Date | Type | Department | Care Team | Description | +--------+---------+ + + + | 04/28/ | Office | [facility] | Jalil Jane | Diarrhea, | | 2019 | Visit | GASTROENTEROLOGY | MD Cosmo [address] | unspecified type | | | | [address] | [address] [place] | (Primary Dx); | | | | [address] [place], [place] | [place] [address] | Gastroesophageal | | | | [address] | [phone] | reflux disease, | | | | [phone] | | esophagitis presence | | | [...] history: She is no longer in the alf, and is living with her boyfriend. Diarrhea [...] or fail to improve. CC: Lyudmila Child, HEALTH AND SAFETY TECH [address] [place] [address] Portions of this chart may have been created with [employer] voice recognition software. Occasi onal wrong-word or [...]
--- OUTSIDE RECORDS SUMMARY | ~2020-05-06 | XMS | Encounter Summary ---
Demographics + + + | Address | [address] | | | [place] [address] | + + + | Home Phone | | + + + | Preferred Language | Unknown | + + + | Marital Status | Single | + + + | Presybeterian Affiliation | Unknown | + + + | Race | Unknown | + + + | Ethnic Group | Unknown | + + + Author + + + | Author | [facility] | | | and Paulana | + + + | Organization | [facility] | | | and Paulana [...] Team Providers + +------+ + | Care Superintendent Factory Name | Role | Phone | + [...] + | 01/26/ | Telephone | [facility] | Jalil Jane | Other (Medication | | 2019 | | GASTROENTEROLOGY | MD Cosmo [address] | question) | | | | [address] | [address] [place] | | | | | [address] [place], [place] | [place] [address] | | | | | [address] | [phone] | | | | | [phone] | | | +--------+ + + + [...] 3:24 PM PDTName of Caller: Toshia from [place] with [facility] Name of Patient: Leah Muniz Reason for call: Toshai, patient's care provider had questions regards patient [...]
--- OUTSIDE RECORDS SUMMARY | ~2020-05-06 | XMS | Clinical Summary ---
Demographics + + + | Address | [address] | | | [place] [address] | + + + | Home Phone [...] + | Author | [facility] | | | and Paulana | + + + | Organization | [facility] | | | and Paulana [...] Team Providers + +------+ + | Care Network Relay Tester Name | Role | Phone | + +------+ + | Lyudmila Child SPRAY MIXER | PCP | | + +------+ + [...] + + + | Overview: Problem List O And M Supervisor | + + + + + | [...] | [employer] | [employer] | [id number] | 04/28/20 | [phone] | | Medica [...] Flor | marcelo/Doc | | 2000 | [phone] | [place] [address] | | | leilani | | | 8 (Home) | | + +--------+ +--------+ + + | Leah Muniz | Person | Self | [birth year] | [address] | | [place] | al/Fam | | 2001 | [phone] | [place] [address] | | | leilani | | | 8 (Home) | | + +--------+ +--------+ + + Advance Directives + + + + + | Type | Date Recorded | Patient | Explanation | | | | License Clerk | | + + + + + | Power of | | | | | Supplier Specialist | | | | + + + + + | Advance | | | | | Directive | | | | + + + + +
[~2020-05-06 16:55] MED LIST changes: +PROPRANOLOL HCL10 MG PO
== END 2020-05-06 21:11 | disposition home or self-care (01) ==
LOC: ED 16:55
DX: E10.10 Type 1 diabetes mellitus with ketoacidosis without coma (principal); F41.9 Anxiety disorder, unspecified; Z88.8 Allergy status to other drugs, medicaments and biological substances; Z91.041 Radiographic dye allergy status; Z79.899 Other long term (current) drug therapy
CPT/HCPCS: 80053; 81001; 82010; 82800; 84703; 85025; 96361; 96374; 99284-25; J2405; J7030

== ENCOUNTER 2020-05-07 19:56 | Emergency (ER) | payer OTHER ==
[~2020-05-07] VITALS: Ht 167.6 cm; Wt 94.5 kg
== END 2020-05-07 23:13 | disposition home or self-care (01) ==
LOC: ED 19:56
DX: F32.9 Major depressive disorder, single episode, unspecified (principal); E10.9 Type 1 diabetes mellitus without complications; F41.9 Anxiety disorder, unspecified; Z88.8 Allergy status to other drugs, medicaments and biological substances; Z91.041 Radiographic dye allergy status; Z79.899 Other long term (current) drug therapy; Z79.4 Long term (current) use of insulin
CPT/HCPCS: 80053; 80176; 81001; 84443; 84703; 85025; 99284; G0480

== ENCOUNTER 2020-05-19 19:59 | Emergency (ER) | payer OTHER ==
[~2020-05-19] VITALS: Ht 167.6 cm; Wt 97.5 kg
--- OUTSIDE RECORDS SUMMARY | ~2020-05-19 | XMS | Encounter Summary ---
Demographics + + + | Address | [address] | | | [place] [address] | + + + | Home Phone | | + + + | Preferred Language | Unknown | + + + | Marital Status | Single | + + + | Baptist Affiliation | Unknown | + + + | Race | Unknown | + + + | Ethnic Group | Unknown | + + + Author + + + | Author | [facility] | | | and Paulana | + + + | Organization | [facility] | | | and [...] Team Providers + +------+ + | Care Secret Code Expert Name | Role | Phone | + +------+ + | Lyudmila Child LOOM FIXER HELPER | PCP | | + +------+ + [...] | | Gastro-esoph | [address] | PET CARE WORKER [address] | | | | | ageal reflux | [address] | [address] | | | | | disease | [place], | [address] | | | | | without | [place] [address] | [place], | | | | | esophagitis | Phone: | [place] [address] | | | | | Diarrhea, | [phone] | Phone: | | | | | unspecified | Fax: | [phone] | | | | | Nausea | [phone] | Fax: | | | | | Right upper | | [phone] | | | | | quadrant | | | | | | | pain | | | | | | | Procedures | | | | | | | LOOM FIXER HELPER OFFICE | | | | | | [...] (Primary Dx); | | | | [address] [place], [place] | [place] [address] | Irritable bowel | | | | [address] | [phone] | syndrome with | | | | [phone] | | diarrhea | +--------+---------+ + + [...] [place] is the contac t person at [facility] at to organize labs between patient and [place]. Patient will go to [facility] to have Celiac drawn today. Spoke with Tia at [facility] this morning 01/23/19; advised we saw patient in clinic yesterday and will need time sensitive labs drawn; however, patient advised she would need assistance by someone at [facility] to assist in getting those labs to [place]; rec ommended this be performed next week; will fax labs to [place] today; Tia will advise Natalya jose aayde who is the individual in charge of patient cares at [facility]. Will follow up next week to ensure all parties are on board with obtaining labs. DALaingJalil MD - 01/22/2019 3:00 PM PDTFor matting of this note might be different from the original. Outpatient Gastroenterology Consult Note Date of Office Visit: 01/23/19 Referring Provider: Lyudmila Child NP [address] [place] [address] Providing Physician: Jalil Jane MD. Chief Complaint: [...] 11/18/18 and US abdomen , done at [facility]'s Assessment and Plan This is a 18 year old F with depression and DM1, who presents for diarrhea with abdominal p ain. Her symptoms are typical for IBS-D per [place] criteria. She lacks any alarm symptoms for [...] months (around 04/24/2019). CC: Lyudmila Child NP [address] [place] [address] Lyudmila OsmanAlexys Child, [id number] [place] [address] Portions of this chart may have been created with VersionOne voice recognition software. Occasi onal wrong-word or [...] | REFERENCE LAB | | [place] [id number] Restaurant Crew Person: Samy Fofana MD, Phone: | [place] | | [phone] | | + + + + + + + + | Performing | Address | City/State/Zipcode | Phone Number | | Organization | | | | + + + + + | REFERENCE LAB | [address] | [place], [place] | [phone] | | [facility] | [place]ja [place]pin | [address] | | + + + + + documented in this encounter Visit Diagnoses + + | Diagnosis | + + | Diarrhea, unspecified type - Primary | + + | Irritable bowel syndrome with diarrhea Irritable bowel syndrome | + + documented in this encounter
--- OUTSIDE RECORDS SUMMARY | ~2020-05-19 | XMS | Encounter Summary ---
Demographics + + + | Address | [address] | | | [place] [address] | + + + | Home Phone [...] | Author | [facility] | | | and Paulana | + + + | Organization | [facility] | | | and [...] Team Providers + +------+ + | Care Commercial Litigation Paralegal Name | Role | Phone | + +------+ + | Lyudmila Child SUPERVISOR INSPECTION ROOM | PCP | | + +------+ + [...] | | Gastro-esoph | [address] | WICK TENDER [address] | | | | | ageal reflux | [address] | [address] | | | | | disease | [place], | [address] | | | | | without | [place] [address] | [place], | | | | | esophagitis | Phone: | [place] [address] | | | | | Diarrhea, | [phone] | Phone: | | | | | unspecified | Fax: | [phone] | | | | | Nausea | [phone] | Fax: | | | | | Right upper | | [phone] | | | | | quadrant | | | | | | | pain | | | | | | | Procedures | | | | | | | SUPERVISOR INSPECTION ROOM OFFICE | | | | | | | VISIT | | | +--------+--------+ + + + + Encounter Details +--------+---------+ + + + | Date | Type | Department | Care Team | Description | +--------+---------+ + + + | 04/28/ | Office | [facility] | Jalil Jane | Diarrhea, | | 2019 | Visit | GASTROENTEROLOGY | MD Cosmo [address] | unspecified type | | | | [address] | [address] [place] | (Primary Dx); | | | | [address] [place], [place] | [place] [address] | Gastroesophageal | | | | [address] | [phone] | reflux disease, | | | | [phone] | | esophagitis presence | | | [...] history: She is no longer in the retirement, and is living with her boyfriend. Diarrhea [...] 68 mg under the skin once. fexofenadine (ARTRUO) 180 mg tablet Take 180 mg by [...] or fail to improve. CC: Lyudmila Child, SUPERVISOR INSPECTION ROOM [address] [place] [address] Portions of this chart may have been created with Andre Phillipe voice recognition software. Occasi onal wrong-word or [...]
--- OUTSIDE RECORDS SUMMARY | ~2020-05-19 | XMS | Clinical Summary ---
Demographics + + + | Address | [address] | | | [place] [address] | + + + | Home Phone | | + + + | Preferred Language | Unknown | + + + | Marital Status | Single | + + + | Mandaen Affiliation | Unknown | + + + | Race | Unknown | + + + | Ethnic Group | Unknown | + + + Author + + + | Author | [facility] | | | and Paulana | + + + | Organization | [facility] | | | and [...] Team Providers + +------+ + | Care Raw Shellfish Preparer Name | Role | Phone | + +------+ + | Lyudmila Child TAX PROCESSOR | PCP | | + +------+ + [...] + + + | Overview: Problem List [employer] Department Head | + + + + + | [...] | [employer] | [employer] | [id number] | 04/28/20 | [phone] | | Medica [...] Flor | marcelo/Doc | | 2000 | [phone] | [place] [address] | | | leilani | | | 8 (Home) | | + +--------+ +--------+ + + Advance Directives + + + + + | Type | Date Recorded | Patient | Explanation | | | | Quality Assurance Lead | | + + + + + | Power of | | | | | Blower Operator | | | | + + + + + | Advance | | | | | Directive | | | | + + + + +
--- OUTSIDE RECORDS SUMMARY | ~2020-05-19 | XMS | Encounter Summary ---
Demographics + + + | Address | [address] | | | [place] [address] | + + + | Home Phone | | + + + | Preferred Language | Unknown | + + + | Marital Status | Single | + + + | Tenriism Affiliation | Unknown | + + + | Race | Unknown | + + + | Ethnic Group | Unknown | + + + Author + + + | Author | [facility] | | | and Paulana | + + + | Organization | [facility] [...] Team Providers + +------+ + | Care Metal Ceiling Hanger Name | Role | Phone | + [...] + + | 02/04/ | Telephone | [facility] | Jalil Jane | Medication Orders | | 2019 | | GASTROENTEROLOGY | MD [address] | | | | | [address] | [address] [place] | | | | | [address] [place], [place] | [place] [address] | | | | | [address] | [phone] | | | | | [phone] | | | +--------+ + + + [...] refills. Re faxed back to Benita at [facility] [phone] . elephone Encmadhavi prince - Enid Reyes [...] change to orders and will fax to [facility] office for signature. She states patient does not eat on a regular basis and would like to modify and add prn to order. Provided our fax number and will await modification requestEle ctronically signed by Enid Reyes RN at 02/05/2019 12:30 PM PDTTelephone Encounter - Kyleigh Major - 02/04/2019 11:46 AM Momo, Director of Health Services for [facility] called in regards to an [...] like clarification. She gave her cell phone [phone] please call her when available, Thank you documented in this encounter Plan of Treatment Not on filedocumented as of this encounter Visit Diagnoses Not on filedocumented in this encounter"
--- OUTSIDE RECORDS SUMMARY | ~2020-05-19 | XMS | Encounter Summary ---
Demographics + + + | Address | [address] | | | [place] [address] | + + + | Home Phone | | + + + | Preferred Language | Unknown | + + + | Marital Status | Single | + + + | Caodaism Affiliation | Unknown | + + + | Race | Unknown | + + + | Ethnic Group | Unknown | + + + Author + + + | Author | [facility] | | | and Paulana | + + + | Organization | [facility] | [...] Team Providers + +------+ + | Care Agent Spa Desk Name | Role | Phone | + [...] | [address] | [place] [address] | | | | | [address] | | | | | | [phone] | | | +--------+ + + + [...]
--- OUTSIDE RECORDS SUMMARY | ~2020-05-19 | XMS | Encounter Summary ---
Demographics + + + | Address | [address] | | | [place] [address] | + + + | Home Phone | | + + + | Preferred Language | Unknown | + + + | Marital Status | Single | + + + | Worship Affiliation | Unknown | + + + | Race | Unknown | + + + | Ethnic Group | Unknown | + + + Author + + + | Author | [facility] | | | and Paulana | + + + | Organization | [facility] | | | and [...] Team Providers + +------+ + | Care Gang Drill Operator Name | Role | Phone | [...] + | 01/26/ | Telephone | [facility] | Jalil Jane | Other (Medication | | 2019 | | GASTROENTEROLOGY | MD [address] | question) | | | | [address] | [address] [place] | | | | | [address] [place], [place] | [place] [address] | | | | | [address] | [phone] | | | | | [phone] | | | +--------+ + + + [...] 3:24 PM PDTName of Caller: Toshia from [place] with [facility] Name of Patient: Leah Muniz Reason for [...]
[2020-05-19] MEDS ORDERED: ARIPIPRAZOLE5 MG PO (20:19)
[2020-05-19] MEDS ORDERED: PRAZOSIN HCL2 MG PO (20:19)
[2020-05-19] MEDS ORDERED: VENLAFAXINE H37.5 MG PO (20:19)
[2020-05-19] MEDS ORDERED: INSULIN AS100 UNIT/2 IV (20:20)
--- NOTE | 2020-05-20 10:12 | EKG ---
[facility] [address] [facility] [place], [place] [address] Signed Normal sinus rhythm Normal ECG When compared with ECG of 16-JUL-2019 13:30, No significant change was found Confirmed by KWAME VEGAS MD ([id number]) on 05/20/2020 10:11:54 AM Electronically Signed By: KWAME VEGAS MD 05/20/20 1012 PATIENT NAME: FAUSTINO JIMENEZ IZABEL Electrocardiogram DATE OF : [birth year] PHYSICIAN: KWAME VEGAS MD REPORT #: [id number] REPORT IS CONFIDENTIAL AND NOT TO BE RELEASED WITHOUT AUTHORIZATION
== END 2020-05-20 02:46 | disposition home or self-care (01) ==
LOC: ED 19:59
DX: T43.592A Poisoning by other antipsychotics and neuroleptics, intentional self-harm, initial encounter (principal); E10.9 Type 1 diabetes mellitus without complications; F41.9 Anxiety disorder, unspecified; Z88.8 Allergy status to other drugs, medicaments and biological substances; Z91.041 Radiographic dye allergy status; Z79.899 Other long term (current) drug therapy; Z79.4 Long term (current) use of insulin
CPT/HCPCS: 80053; 80176; 81001; 84443; 84703; 85025; 93005; 93010; 99284-25; G0480

== ENCOUNTER 2020-06-12 10:31 | Observation (INO) | payer OTHER ==
[~2020-06-12] VITALS: Ht 167.6 cm; Wt 98.0 kg
--- OUTSIDE RECORDS SUMMARY | ~2020-06-12 | XMS | Encounter Summary ---
Demographics + + + | Address | [address] | | | [place] [address] | + + + | Home Phone | | + + + | Preferred Language | Unknown | + + + | Marital Status | Single | + + + | Orthodoxy Affiliation | Unknown | + + + | Race | Unknown | + + + | Ethnic Group | Unknown | + + + Author + + + | Author | [facility] | | | and Paulana | + + + | Organization | [facility] | | | and Paulana | [...] Team Providers + +------+ + | Care Pin Machine Operator Name | Role | Phone | + +------+ + | Lyudmila Child CELL PHONE REPAIR TECHNICIAN | PCP | | + +------+ + Reason for Visit + + + | Reason | Comments | + + + | Follow-up | | + + + | Gastroesophageal | | | Reflux | | + + + Evaluate & Treat (Routine) +--------+--------+ + + + + | Status | Reason | Specialty | Diagnoses / | Referred By | Referred To | | | | | Procedures | Contact | Contact | +--------+--------+ + + + + | Closed | | Gastroenterol | Diagnoses | Mateusz, | Anel, | | | | ogunruly | | Lyudmila Osman NP | [place], | | | | | Gastro-esoph | [address] | METAL LEAF LAYER [address] | | | | | ageal reflux | [address] | [address] | | | | | disease | [place], | [address] | | | | | without | [place] [address] | [place], | | | | | esophagitis | Phone: | [place] [address] | | | | | Diarrhea, | [phone] | Phone: | | | | | unspecified | Fax: | [phone] | | | | | Nausea | [phone] | Fax: | | | | | Right upper | | [phone] | | | | | quadrant | | | | | | | pain | | | | | | | Procedures | | | | | | | CELL PHONE REPAIR TECHNICIAN OFFICE | | | | | | | VISIT | | | +--------+--------+ + + + + Encounter Details +--------+---------+ + + + | Date | Type | Department | Care Team | Description | +--------+---------+ + + + | 04/28/ | Office | [facility] | Jalil Jane | Diarrhea, | | 2019 | Visit | GASTROENTEROLOGY | MD Cosmo [address] | unspecified type | | | | [address] | [address] [place] | (Primary Dx); | | | | [address] [place], [place] | [place] [address] | Gastroesophageal | | | | [address] | [phone] | reflux disease, | | | | [phone] | | esophagitis presence | | | | | | not specified | +--------+---------+ + + + Social History + +-------+ [...] on file | | + + + documented as of this encounter [...] + + + documented in this encounter Progress Jalil Linares MD - 04/28/2019 3:00 PM PDT Gastroenterology Clinic Progress Note Date of Office Visit: 04/28/19 Primary Care Physician: Lyudmila Child NP Chief Complaint Follow-up and Gastroesophageal Reflux diarrhea History of Present Illness Leah Muniz is a 18 y.o. female with a history of DM1 and severe depression who returns for diarrhea and gerd. She was last seen on 01/22/19, please see that note for more d etails. Interval history: She is no longer in the [facility], and is living with her boyfriend. Diarrhea has improved significantly. Taking imodium once a day, with no diarrhea. GERD is her main complaint, has had heartburn daily for the past week. Tums have been ineff ective. Denies dysphagia. Has not tried H2RA. Review of Systems A 10 point review of systems was conducted with the patient, pertinent positives and negati ves per HPI. Problem List Patient Active Problem List Diagnosis Separation anxiety disorder Hyperglycemia Major depressive disorder Diabetes mellitus type 1 Hyponatremia MDD (major depressive disorder), recurrent severe, without psychosis Sinusitis GERD (gastroesophageal reflux disease) Past Medical History Past Medical History: Diagnosis Date Abdominal pain Anxiety Chronic recurrent sinusitis Depression with anxiety Diarrhea Dizziness Elevated liver enzymes GERD (gastroesophageal reflux disease) History of suicide attempt x6 Nausea Other specified extrapyramidal and movement disorders PTSD (post-traumatic stress disorder) Right upper quadrant pain Type 1 diabetes (HCC) Past Surgical History Past Surgical History: Procedure Laterality Date NASAL SEPTUM SURGERY 03/2018 Allergies Allergies No active allergies Intolerance No active intolerances/contraindications Medications Current Outpatient Medications on File Prior to Visit Medication Sig Dispense Refill acetone, urine, test (KETOSTIX) strip 1 strip by Does not apply route as needed. albuterol (VENTOLIN HFA) 90 mcg/puff inhaler Inhale 2 puffs into the lungs every 6 hour s as needed for Wheezing. cholecalciferol (VITAMIN D-3) 2000 units TABS Take 2,000 Units by mouth Daily. ciprofloxacin (CIPRO) 500 mg tablet take 1 tablet by mouth twice a day 0 diphenhydrAMINE (BENADRYL) 25 mg tablet Take 25 mg by mouth every 6 hours as needed for Itching. Etonogestrel (NEXPLANON) 68 MG IMPL Inject 68 mg under the skin once. fexofenadine (ARTURO) 180 mg tablet Take 180 mg by mouth Daily. glucose 4-6 GM-MG CHEW Take by mouth Every 30 minutes as needed. glucose blood test strips (FREESTYLE LITE) strip by In Vitro route as needed. insulin glargine (BASAGLAR KWIKPEN) 100 units/mL injection (pen) Inject under the skin nightly. insulin glargine (LANTUS) 100 units/mL injection (vial) Inject under the skin nightly. insulin lispro (HUMALOG KWIKPEN) 100 units/mL injection (pen) Inject 20 Units under the skin 3 times daily. Insulin Pen Needle (BD PEN NEEDLE ARNOLD U/F) 32G X 4 MM MISC by Does not apply route. loperamide (IMODIUM) 2 mg capsule Take 1 capsule by mouth 3 times daily (before meals). max of 16mg/day, hold if constipated 120 capsule 3 Menthol (COUGH DROPS) 5 MG LOZG Take 1 lozenge by mouth as needed. prazosin (MINIPRESS) 2 MG capsule Take 2 mg by mouth nightly. raNITIdine (ZANTAC) 150 mg tablet Take 150 mg by mouth 2 times daily. sertraline (ZOLOFT) 100 mg tablet Take 100 mg by mouth Daily. topiramate (TOPAMAX) 25 mg tablet Take 25 mg by mouth 2 times daily. No current facility-administered medications on file prior to visit. Physical Exam Vitals:BP 104/76 | Pulse 98 | Temp 36.8 C (98.3 F) (Temporal) | Resp 12 | Ht 1.676 m (5' 6") | Wt 87.7 kg (193 lb 5.5 oz) | SpO2 98% | BMI 31.21 kg/m General: This is a well-developed,well-nurished female in no apparent distress, alert and o riented x 3. Otherwise, physical exam not indicated today Labs TTG IgA and IgG were WNL on 01/12/19 Imaging No new imaging Assessment and Plan This is a 18 year old woman with DM1, and depression, here to follow up diarrhea and GERD. Her diarrhea has responded completed to low dose imodium. I encouraged her to use the lowes t effective dose. Now that she is in control of her diet, she may be able to stop the imodiu m in the future. She complaints of GERD. We reviewed lifestyle modifications. She was instructed to try OTC rantidine or famotidine BID PRN for her GERD symptoms. ICD-10-CM ICD-9-CM 1. Diarrhea, unspecified type R19.7 787.91 2. Gastroesophageal reflux disease, esophagitis presence not specified K21.9 530.81 Follow up: Return if symptoms worsen or fail to improve. CC: Lyudmila Child, CELL PHONE REPAIR TECHNICIAN [address] [place] [address] Portions of this chart may have been created with Secondbrain voice recognition software. Occasi onal wrong-word or sound-alike substitutions may have occurred due to the inherent ansari itations of voice recognition software. Please read the chart carefully and recognize, using context, where these substitutions have occurred documented in this encounter Plan of Treatment Not on filedocumented as of this encounter Visit Diagnoses + + | Diagnosis | + + | Diarrhea, unspecified type - Primary | + + | Gastroesophageal reflux disease, esophagitis presence not specified | + + documented in this encounter
--- OUTSIDE RECORDS SUMMARY | ~2020-06-12 | XMS | Encounter Summary ---
Demographics + + + | Address | [address] | | | [place] [address] | + + + | Home Phone | | + + + | Preferred Language | Unknown | + + + | Marital Status | Single | + + + | Yarsanism Affiliation | Unknown | + + + | Race | Unknown | + + + | Ethnic Group | Unknown | + + + Author + + + | Author | [facility] | | | and [place] | + + + | Organization | [facility] | | | and [place] [...] Team Providers + +------+ + | Care Anthropological Linguist Name | Role | Phone | + +------+ + | Lyudmila Child WASTE ELIMINATION | PCP | | + +------+ + [...] | | Gastro-esoph | [address] | RECYCLING OPERATIONS MANAGER [address] | | | | | ageal reflux | [address] | [address] | | | | | disease | [place], | [address] | | | | | without | [place] [address] | [place], | | | | | esophagitis | Phone: | [place] [address] | | | | | Diarrhea, | [phone] | Phone: | | | | | unspecified | Fax: | [phone] | | | | | Nausea | [phone] | Fax: | | | | | Right upper | | [phone] | | | | | quadrant | | | | | | | pain | | | | | | | Procedures | | | | | | | WASTE ELIMINATION OFFICE | | | | | | | VISIT | | | +--------+--------+ + + + + Encounter Details +--------+---------+ + + + | Date | Type | Department | Care Team | Description | +--------+---------+ + + + | 01/22/ | Office | [facility] | Jalil Jane | Diarrhea, | | 2018 | Visit | GASTROENTEROLOGY | MD Cosmo [address] | unspecified type | | | | [address] | [address] [place] | (Primary Dx); | | | | [address] [place], [place] | [place] [address] | Irritable bowel | | | | [address] | [phone] | syndrome with | | | | [phone] | | diarrhea | +--------+---------+ + + [...] Templeton is the contac t person at [facility] at to organize labs between patient and [place]. Patient will go to [facility] to have Celiac drawn today. Spoke with Tia at [facility] this morning 01/23/19; advised we saw patient in clinic yesterday and will need time sensitive labs drawn; however, patient advised she would need assistance by someone at [facility] to assist in getting those labs to [place]; rec ommended this be performed next week; will fax labs to [place] today; Tia will advise Natalya jose aayde who is the individual in charge of patient cares at [facility]. Will follow up next week to ensure all parties are on board with obtaining labs. DALaingJalil MD - 01/22/2019 3:00 PM PDTFor matting of this note might be different from the original. Outpatient Gastroenterology Consult Note Date of Office Visit: 01/23/19 Referring Provider: Lyudmila Child NP [address] [place] [address] Providing Physician: Jalil Jane MD. Chief Complaint: [...] 11/18/18 and US abdomen , done at [facility]'s Assessment and Plan This is a 18 year old F with depression and DM1, who presents for diarrhea with abdominal p ain. Her symptoms are typical for IBS-D per [place] criteria. She lacks any alarm symptoms for [...] months (around 04/24/2019). CC: Lyudmila Child NP [address] [place] [address] Lyudmila OsmanAlexys Child, [address] [place] [address] Portions of this chart may have been created with [employer] voice recognition software. Occasi onal wrong-word or [...] | REFERENCE LAB | | [place] [id number] Attending Pathologist: Samy Fofana MD, Phone: | BLAYNE VICTORIA | | [phone] | | + + + + + + + + | Performing | Address | City/State/Zipcode | Phone Number | | Organization | | | | + + + + + | REFERENCE LAB | [address] | [place], [place] | [phone] | | [facility] | [place] [place] | [address] | | + + + + + documented in this encounter Visit Diagnoses + + | Diagnosis | + + | Diarrhea, unspecified type - Primary | + + | Irritable bowel syndrome with diarrhea Irritable bowel syndrome | + + documented in this encounter
--- OUTSIDE RECORDS SUMMARY | ~2020-06-12 | XMS | Encounter Summary ---
Demographics + + + | Address | [address] | | | [place] [address] | + + + | Home Phone | | + + + | Preferred Language | Unknown | + + + | Marital Status | Single | + + + | Episcopalian Affiliation | Unknown | + + + | Race | Unknown | + + + | Ethnic Group | Unknown | + + + Author + + + | Author | [facility] | | | and [place] | + + + | Organization | [facility] | [...] Team Providers + +------+ + | Care Icu Manager Name | Role | Phone | [...] | | | [address] [facility] | [place]. | | | | | [address] [place] | [place] [address] | | | | | [address] | | | | | | [phone] | | | +--------+ + + + [...]
--- OUTSIDE RECORDS SUMMARY | ~2020-06-12 | XMS | Clinical Summary ---
Demographics + + + | Address | [address] | | | [place] [address] | + + + | Home Phone | | + + + | Preferred Language | Unknown | + + + | Marital Status | Single | + + + | Church Affiliation | Unknown | + + + | Race | Unknown | + + + | Ethnic Group | Unknown | + + + Author + + + | Author | [facility] | | | and [place] | + + + | Organization | [facility] | | | and [...] Team Providers + +------+ + | Care Olive Knocker Name | Role | Phone | + +------+ + | Lyudmila Child FUR GRADER | PCP | | + +------+ + [...] + + + | Overview: Problem List Hydrogenation Still Operator | + + + + + [...] | [employer] | [facility] | [id number] | 04/28/20 | [phone] | | Medica [...] Flor | marcelo/Doc | | 2000 | [phone] | [place] [address] | | | leilani | | | 8 (Home) | | + +--------+ +--------+ + + Advance Directives + + + + + | Type | Date Recorded | Patient | Explanation | | | | Area Development Manager | | + + + + + | Power of | | | | | C Web Developer | | | | + + + + + | Advance | | | | | Directive | | | | + + + + +
--- OUTSIDE RECORDS SUMMARY | ~2020-06-12 | XMS | Encounter Summary ---
Demographics + + + | Address | [address] | | | [place] [address] | + + + | Home Phone [...] | Author | [facility] | | | and [place] | + + + | Organization | [facility] | | [...] Team Providers + +------+ + | Care Sole Conditioner Name | Role | Phone | + [...] + + | 02/04/ | Telephone | [facility] | Jalil Jane | Medication Orders | | 2019 | | GASTROENTEROLOGY | MD Cosmo [address] | | | | | [address] | [address] [place] | | | | | [address] [place], [place] | [place] [address] | | | | | [address] | [phone] | | | | | [phone] | | | +--------+ + + + [...] Re faxed back to Benita at [facility] [phone] . elephone Encmadhavi prince - Enid Reyes RN - 02/06/2019 8:36 AM PDTCalled Benita to advise the fax chandler d not been received yet; she was not in the office yet; provided her alternative fax number. elephone Encount er - Enid Reyes RN - 02/05/2019 12:17 PM PDTReturned call to Benita at [facility]; during our call we lost contact; there [...] change to orders and will fax to [facility] office for signature. She states patient does not eat on a regular basis and would like to modify and add prn to order. Provided our fax number and will await modification requestEle ctronically signed by Enid Reyes RN at 02/05/2019 12:30 PM PDTTelephone Encounter - Kyleigh Major - 02/04/2019 11:46 AM Momo, Director of Health Services for [facility] called in regards to an order received [...] like clarification. She gave her cell phone [phone] please call her when available, Thank you documented in this encounter Plan of Treatment Not on filedocumented as of this encounter Visit Diagnoses Not on filedocumented in this encounter"
--- OUTSIDE RECORDS SUMMARY | ~2020-06-12 | XMS | Encounter Summary ---
Demographics + + + | Address | [address] | | | [place] [address] | + + + | Home Phone | | + + + | Preferred Language | Unknown | + + + | Marital Status | Single | + + + | Quaker Affiliation | Unknown | + + + | Race | Unknown | + + + | Ethnic Group | Unknown | + + + Author + + + | Author | [facility] | | | and [place] | + + + | Organization | [facility] | | | [...] Team Providers + +------+ + | Care Quality Assurance Auditor Name | Role | Phone | + [...] + | 01/26/ | Telephone | [facility] | Jalil Jane | Other (Medication | | 2019 | | GASTROENTEROLOGY | MD Cosmo [address] | question) | | | | [address] | [address] [place] | | | | | [address] [place], [place] | [place] [address] | | | | | [address] | [phone] | | | | | [phone] | | | +--------+ + + + [...] 3:24 PM PDTName of Caller: Toshia from [place] with [facility] Name of Patient: Leah Muniz Reason [...]
[~2020-06-12 10:31] MED LIST changes: +ARIPIPRAZOLE5 MG PO; +INSULIN AS100 UNIT/2 IV; +VENLAFAXINE H37.5 MG PO
--- NOTE | 2020-06-12 16:51 | NUR ---
PT ADMITTED TO CCU. PT BROUGHT BY STRETCHER WITH BELONGINS AND WITH IV INSULIN INFUSING. PT ALERT AND ORIENTED AND COMPLAINS OF A MILD HEADACHE. IV INSULIN TIRATED 2X WHILE CARING FOR PT AT 1530 AND 1630. PT LAST BG WAS 204, INSULIN TITRATING IN AT 2.8 UNITS/HR. IV KCL IN NS STARTED WELL. PT GIVEN PRN TYLENOL FOR HEADACHE. PT HAS NO FURTHER NEEDS AT THIS TIME, WILL CONTINUE PLAN OF CARE. CALL LIGHT WITHIN REACH, BED IN LOWEST POSITION.
--- NOTE | 2020-06-12 16:55 | NUR ---
DR VEGAS IN TO ASSESS PT AND UPDATE ON PLAN OF CARE. NO NEW ORDERS AT THIS TIME, WILL CONTINUE PLAN OF CARE. PT CURRENTLY HAS IV INSULIN AND KCL INFUSING ORDERED. PT REPORTS NO FURTHER NEEDS AT THIS TIME.
[2020-06-12] MEDS ORDERED: BAQSIMI3 MG NAS (17:03)
--- NOTE | 2020-06-12 17:37 | NUR ---
DR VEGAS INFORMED OF PT'S GLUCOSE OF 157. VERBAL ORDERS WERE GIVEN TO HOLD THE IV INSULIN DRIP AND CONTINUE THE KCL IV FLUIDS. PT CURRENTLY EATING CLEAR LIQUID TRAY, PT DENIES ANY NEEDS THAT THIS TIME. WILL CONTINUE PLAN OF CARE.
--- NOTE | 2020-06-12 18:00 | NUR ---
DR. VEGAS CALLED AND UPDATED THAT PATIENT'S LAB WERE NOT BETTER, AND HE WOULD LIKE HER TO STAY ON INSULIN GTT TONIGHT AND D/C TOMORROW. MIDNIGHT LABS TO BE DRAWN. PT UPDATED ON THIS AND AGREEABLE. IV FLUIDS CHANGED TO D5 1/2 NS WITH 20 KCL AT 200 ML/HR.
--- NOTE | 2020-06-12 18:12 | NUR ---
GLUCOSE OF 164. PATIENT EATING CLEAR DINNER TRAY.
--- NOTE | 2020-06-12 19:18 | NUR ---
PT USED CALL LIGHT DUE TO HAVING TO GO TO BATHROOM. PT WAS ABLE TO AMBULATE TO BATHROOM AND BACK WITH NO ASSISTANCE. PRN ZOFRAN GIVEN FOR NAUSEA. IV FLUIDS RESTARTED AFTERWARDS. PT STATES SHE HAS A MINOR HEADACHE BUT STATES ITS TOLERABLE AND CAN WAIT FOR HER NEXT TYLENOL. PT BACK IN BED AND REPORTS NO FURTHER NEEDS AT THIS TIME. WILL CONTINUE PLAN OF CARE AND REPORT TO NIGHTSHIFT RN.
--- NOTE | 2020-06-12 19:30 | NUR ---
REPORT RECEIVED FROM RIA MONTOYA. PT RESTING IN BED WITH EYES CLOSED, RESP EVEN AND UNLABROED HR 110'S.
--- NOTE | 2020-06-12 20:15 | NUR ---
IN TO CHECK ON PT AND DO ASSESSMENT. BLOOD SUGAR DONE AND INSULIN GTT CURRENTLY INFUSING AT 3.6UNITS/HR AND IVF D5NS WITH 20KCL INFUSING AT 200ML/HR. PT C/O NAUSEA, DAY SHIFT RN RECENTLY GAVE ZOFRAN. PT ALSO C/O "BURNING" IN EPIGASTRIC AREA, STATES "I USUALLY FEEL LIKE THIS WHENEVER IM IN DKA". GIVEN SODA TO SIP ON, PT STATES THIS MAY HELP AND WILL REEVALUATE IN A LITTLE WHILE. RESTING HR 110-120 AND RR 16.
--- NOTE | 2020-06-12 20:15 | NUR ---
IN TO CHECK ON PT AND DO ASSESSMENT, BLOOD SUGAR TAKEN AND INSULIN GTT NOW INFUSING AT 3.6UNITS/HR. IVF D51/2NS WITH 20KCL INFUSING AT 200ML/HR. PT C/O NAUSEA, WAS RECENTLY GIVEN ZOFRAN BY DAY SHIFT RN. ALSO C/O "BURNING" IN EPIGASTRIC AREA, STATES "I FEEL LIKE THIS WHENEVER IM IN DKA". PT GIVEN SODA TO SIP ON AND WILL REEVALUATE, STATES THAT MAY HELP, WILL REEVALUATE. RESTING HR 110-120, RESP RATE 16.
--- NOTE | 2020-06-12 20:50 | NUR ---
PT REPORTS STILL FEELING CHEST BURNING, MAALOX GIVEN PER NIO ORDER.
--- NOTE | 2020-06-12 21:56 | NUR ---
PT REPORTS THAT CHEST BURNING IS ALMOST GONE SINCE MAALOX GIVEN.
--- NOTE | 2020-06-12 23:00 | NUR ---
IN TO DO BLOOD SUGAR AND ASSESSMENT. PT HAS NO C/O AT THIS TIME. UP TO VOID AND BACK TO BED.
--- NOTE | 2020-06-13 00:41 | NUR ---
LAB DRAWN BY RN. PT BACK TO TRY TO SLEEP.
--- NOTE | 2020-06-13 02:28 | NUR ---
PT RESTING, RESP EVEN AND UNLABORED, HR 95.
--- NOTE | 2020-06-13 04:08 | NUR ---
UP TO BR TO VOID, THEN BACK TO BED. ASSESSMENT/BS DONE, DENIES NEEDS.
--- NOTE | 2020-06-13 05:46 | NUR ---
LAB IN TO DRAW AND PT UP TO BR TO VOID THEN BACK TO BED.
--- NOTE | 2020-06-13 07:32 | NUR ---
REPORT RECEIVED FROM NIGHTSHIFT RN. WILL RESUME CARE OF PT AND CONTINUE PLAN OF CARE.
--- NOTE | 2020-06-13 08:12 | NUR ---
Attempted tp see pt. She is on a zoom call with her mental health team.
--- NOTE | 2020-06-13 08:14 | NUR ---
Got pt. up and to the bathroom pt. brushed her teeth and washed her face and hands. no other needs at this time
--- NOTE | 2020-06-13 08:26 | NUR ---
CALLED TO UPDATE TO IV SITE PAINFUL AND NOT FLUSHING FOR PT. GAVE ORDER TO HAVE PT PLACE HER OWN INSULIN PUMP ON.
--- NOTE | 2020-06-13 09:15 | NUR ---
Returned at 0915 to speak with pt. She states she is on a call with her mental provider. Will return after seeing pt's on medical floor.
--- NOTE | 2020-06-13 09:50 | NUR ---
IV SITE REMOVED, TIP OF CATH INTACT, NO REDNESS OR SWELLING NOTED, SITE IS WNL. PT DENIES PAIN, NAUSEA, AND SOB AT THIS TIME. PT IS ALERT AND ORIENTED X4.
--- NOTE | 2020-06-13 09:54 | NUR ---
PT. went and took a shower. Bed linens were changed, room was picked up and garbages were emptied. No other needs at this time.
--- NOTE | 2020-06-13 10:11 | NUR ---
pt back to room from shower. pt ambulates easily in halls, denies pain, nausea, and sob.
--- NOTE | 2020-06-13 11:45 | NUR ---
REturned to speak with Leah. Pt has discharged.
--- NOTE | 2020-06-13 21:30 | PATH ---
[facility] [address] [place], [place] [address] Signed ORDERING PHYSICIAN: Cosmo Raymond MD PATIENT NAME: FAUSTINO JIMENEZ GENDER: F : 2000 Prior History: DATE CASE NUM ADEQUACY DIAGNOSIS HPV RESULTS PHYSICIAN The 5 most recent reports are included. This history does not include results of pap smears performed at another laboratory. SPECIMEN(S): MOLECULAR PATHOLOGY RESULTS: SARS-CoV-2 Not Detected ADDITIONAL NOTES.: The Needles Fusion SARS-CoV-2 Assay is a multiplex real-time PCR (RT-PCR) in vitro diagnostic test intended for the qualitative detection of RNA from SARS-CoV-2 from individuals who meet COVID-19 clinical and/or epidemiological criteria. In general, SARS-CoV-2 RNA can be detected during the acute phase of infection. Positive results indicate the presence of SARS-CoV-2 RNA. Clinical correlation with patient history and other diagnostic information is necessary to determine patient infection status. Positive results do not rule out bacterial infection or co-infection with other viruses. Negative results do not preclude SARS-CoV-2 infection and should not be used as the sole basis for patient management decisions. Negative results must be combined with other clinical observations, patient history, and epidemiological information. The Needles Fusion SARS-CoV-2 Assay is not yet approved or cleared by the [place] FDA. When there are no FDA-approved or cleared tests available, and other criteria are met, FDA can make tests available under an emergency access mechanism called an Emergency Use Authorization (EUA). The EUA for this test is supported by the Human Resources Project Manager of Health and Human Service's (HHS's) declaration that circumstances exist to justify the emergency use of in vitro diagnostics for the detection and/or diagnosis of the virus that causes COVID-19. This EUA will remain in effect for the duration of the COVID-19 declaration justifying emergency of IVDs, unless it is terminated or PATIENT NAME: FAUSTINO JIMENEZ PATHOLOGY DATE OF : [birth year] REPORT #: [id number] PHYSICIAN: ADELINE PATHOLOGY PCP: DO JACKSON PAC REPORT IS CONFIDENTIAL AND NOT TO BE RELEASED WITHOUT AUTHORIZATION [facility] [address] [facility] [place], [place] [address] Signed revoked by FDA, after which the test may no longer be used. The Needles Fusion SARS-CoV-2 Assay is for use only under EUA in US laboratories certified under the Clinical Laboratory Improvement Amendments of 1988 (CLIA) to perform high complexity tests. [facility] is certified under CLIA to perform high complexity clinical laboratory testing. PERFORMING LABORATORY.: Molecular testing was performed by [facility] [address] (Typewriter Assembler: Ha Palomo D.O.; CLIA#: [id number]) Diagnostician: System Interface Pathologist Electronically Signed 06/13/2020 Copies: ~ PATIENT NAME: FAUSTINO JIMENEZ PATHOLOGY DATE OF : [birth year] REPORT #: [id number] PHYSICIAN: ADELINE DENT PCP: DO JACKSON PAC REPORT IS CONFIDENTIAL AND NOT TO BE RELEASED WITHOUT AUTHORIZATION
== END 2020-06-13 10:47 | disposition home or self-care (01) ==
LOC: ED 10:31 → CCU 10:32
PROVIDERS: ADMIT Internal Medicine; ATTEND Internal Medicine
DX: E10.65 Type 1 diabetes mellitus with hyperglycemia (principal); F32.9 Major depressive disorder, single episode, unspecified; Z23 Encounter for immunization; Z20.828 Contact with and (suspected) exposure to other viral communicable diseases; Z88.8 Allergy status to other drugs, medicaments and biological substances; Z91.041 Radiographic dye allergy status; Z79.899 Other long term (current) drug therapy
CPT/HCPCS: 36415; 80048; 80053; 80176; 81001; 82010; 82800; 82803; 84443; 84703; 85025; 90686; 96361; 96374; 99285-25; C9803; G0008; G0378; G0480; J1815; J2405; J3480; J7030; U0003